=== PATIENT | male | born 1960 | race Caucasian/White ===

== ENCOUNTER 2016-09-14 21:55 | Inpatient (IN) | payer SELFPAY ==
[2016-09-14] MEDS ORDERED: Sodium Chloride 0.9% 1,000 ML PRIMARY IV ONE (22:16)
[2016-09-14] MEDS ORDERED: NORMAL SALINE 10 ML SYRINGE FLUSH IVP PRN (22:16)
--- NOTE | 2016-09-14 22:39 | PDOC ---
General Adult HPI - General Chief Complaint: General Medical Stated Complaint: DON'T CARE, ETOH, FALL Date Seen by Provider: 09/14/16 Time Seen by Provider: 23:00 Source: POSITIVE: Patient, EMS Exam Limitations: POSITIVE: Intoxication Nurse's Notes Reviewed & Considered: Yes EMS Report Reviewed & Considered: Verbal - History of Present Illness Initial Comment: The patient is a 55-year-old male who is brought to the emergency department by ambulance. The patient has a history of alcohol abuse and according to the EMS crew he drinks up to a gallon a day. EMS was apparently a called to evaluate the patient by law enforcement because the patient was significantly intoxicated and complaining that he had fallen and had left-sided rib pain. The patient on arrival states he does have significant left-sided pain which is worse with movement. He also has some left upper abdominal pain. His pain is worse with breathing or with movement. He states that he thinks he fell down 7 or 8 stairs yesterday some time. He states that he has done this in the past. He doesn't specifically remember when he fell. He denies any current headache or neck pain. He states he has not been vomiting recently. He states that he is tired of drinking and tired of being the way that he is. He is not specifically suicidal and states he does not want to . He denies any other specific complaints currently. 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 He states that he previously saw physicians in [place] for this issue however he states he has not had money to see the doctor recently. He states that his foot actually looks better than it has in the past. Have you received a tetanus shot in the past 10 years?: Unknown - Patient Home Medications Home Medications: Home Medications NK [No Home Medications Reported] 09/14/16 - Patient Allergies Allergies/Adverse Reactions: Allergies Allergy/AdvReac Type Severity Reaction Status Date / Time Sulfa (Sulfonamide AdvReac DIFFICULTY Verified 09/14/16 22:22 Antibiotics) SWALLOWING Past Medical History Past Medical History Reviewed: Other (please comment) (Patient reports that he does not take any prescription medications currently. He does smoke regularly and drinks he states the fifth a day. He states that he is an alcoholic and has had previous withdrawal seizures in the past.) ROS - Limitations ROS Limitations: Intoxication Constitution: DENIES: Chills, Fever Cardiovascular: REPORTS: Chest Pain (Left-sided chest wall pain). DENIES: Blood Pressure Problem, Edema Respiratory: REPORTS: Denies Resp Symptoms, Hurts To Breathe. DENIES: Shortness Of Breath Neurological: DENIES: Headache, Numbness, Weakness Gastrointestinal: REPORTS: Abdominal Pain (Some of the pain from his left chest wall does radiating to the left upper abdomen). DENIES: Nausea, Vomitting Musculoskeletal: REPORTS: Denies MS Symptoms Genitourinary: REPORTS: Denies Symptoms Eyes: REPORTS: Denies Symptoms ENT: REPORTS: Denies Symptoms General Adult Exam - General Appearance General Appearance: POSITIVE: Alert, Cooperative, No Acute Distress - HEENT HEENT: POSITIVE: Head Inspection Nml (No visible bruising or trauma), Eyes Inspection Nml, Ears Inspection Nml, Pharynx Inspect. Nml, PERRL, EOMI, Dry Mucous Membranes - Neck Neck: POSITIVE: Normal Inspection, Lymphadenopathy, Other (No C-spine tenderness ) - Respiratory Respiratory: POSITIVE: No Respiratory Distress, Breath Sounds Normal, Other (He does have tenderness over the left lower and lateral chest wall with no obvious crepitus, breath sounds are normal bilaterally) - Cardiovascular Cardiovascular: POSITIVE: Regular Rate & Rhythm, No Murmur, No Gallop Peripheral Pulses: Dorsalis-pedis (R): 2+, Dorsalis-pedis (L): 2+ - Abdomen Abdomen: Soft: (All Quadrants), No Guarding: (All Quadrants), No Rebound: (All Quadrants), No Distention: (All Quadrants) Additional Abdominal Details: He does have some tenderness in the left upper quadrant with no guarding or rebound tenderness - Back Back: POSITIVE: Normal Inspection - Skin Skin: POSITIVE: Normal Color, No Rash - Extremities Extremity: Normal ROM: (All Extremities), Normal Inspection: (All Extremities) - Neurological / Psychological Neurological: POSITIVE: Oriented X3, Motor Normal, Sensation Normal General Adult Progress - Results Reviewed by me Xrays/CTs/US Reviewed by me: Yes Discussed with Radiologist: Yes Radiology Findings: CTA of the chest for PE protocol is negative for PE, he does have multiple left-sided rib fractures which are acute and subacute according to the radiologist, no evidence of pneumothorax, small left pleural effusion, CT scan of the abdomen and pelvis shows no acute abnormalities per radiologist. Lab Results Reviewed: Yes Lab Results:: Laboratory Results 09/14/16 Range/Units 22:30 WBC 8.42 (4.8-10.8) 10^3/uL RBC 4.43 L (4.70-6.10) 10^6/uL Hgb 14.7 (14.0-18.0) g/dL Hct 42.3 (42.0-52.0) % MCV 95.5 H (80-90) FL MCH 33.2 H (27-31) PG MCHC 34.8 (33-37) g/dL RDW Std Deviation 43.2 (39-50) fL RDW Coeff of Durga 12.7 (11.5-14.5) % Plt Count 318 (140-350) 10*3/uL MPV 7.5 (7.4-12.2) FL Immature Gran % (Auto) 0.1 (0-5) % Neut % (Auto) 65.7 (50-80) % Lymph % (Auto) 23.5 (10-50) % Hinds % (Auto) 9.5 (5-15) % Eos % (Auto) 0.2 (0-8) % Baso % (Auto) 1.0 (0-1) % Immature Gran # (Auto) 0.01 10*3/UL Neut # (Auto) 5.53 10*3/UL Lymph # (Auto) 1.98 10*3/uL Hinds # (Auto) 0.80 (0.3-0.8) 10*3/UL Eos # (Auto) 0.02 10*3/UL Baso # (Auto) 0.08 10*3/UL WBC Morphology Comment Normal morphology (NORM) Plt Morphology Comment Normal morphology (NORM) RBC Morph Comment Normal morphology (NORM) PT 10.7 (9.7-11.4) secs INR 1.04 (0.00-5.90) N/A D-Dimer 3.87 H (0.00-0.59) mg/L Sodium 147 H (135-145) meq/L Potassium 3.8 (3.8-5.2) meq/L Chloride 103 (98-112) meq/L Carbon Dioxide 21 L (23-33) meq/L Anion Gap 23 H (5-20) BUN 9 (7-22) mg/dL Creatinine 0.6 L (0.70-1.50) mg/dL Estimated GFR > 60 (>60 ml/min/1.73m(2)) BUN/Creatinine Ratio 15.00 (6-20) Glucose 94 (78-110) mg/dL Calculated Osmolality 302.0 H (267-292) mOsm/kg Lactic Acid 7.6 H (0.70-2.10) MMOL/L Calcium 7.9 L (8.7-10.7) mg/dL Magnesium 2.1 (1.6-2.4) mg/dL Total Bilirubin 0.7 (0.3-1.2) mg/dL AST 106 H (21-57) IU/L ALT 91 H (21-72) IU/L Alkaline Phosphatase 147 H (38-126) IU/L Troponin I < 0.012 (< 0.040) ng/mL C-Reactive Protein 3.0 H (0.0-0.9) mg/dL Total Protein 8.1 H (6.1-8.0) g/dL Albumin 4.3 (3.5-4.8) g/dL Globulin 3.8 (2.50-4.10) g/dL Albumin/Globulin Ratio 1.10 L (1.3-2.0) mg/g Amylase 127 H (30-110) U/L Lipase 346 H (23-300) IU/L TSH 1.18 (0.2700-4.2000) uIU/mL Salicylates < 1.0 (0-20) mg/dl Acetaminophen < 10.0 (0-30) ug/mL Serum Alcohol 439 H (0-10) mg/dL EKG Interpreted/Reviewed By Me:: Yes EKG Interpretation:: POSITIVE: Normal Sinus Rhythm, Normal Rate, Normal Intervals, Normal [place], Normal QRS, Normal ST/T - Patient's Progress MDM / ED Course: An IV had been established per EMS. The patient was clearly intoxicated on arrival. He did become quite anxious and was complaining of significant pain after CT and received Toradol 15 mg IV as well as Ativan 2 mg IV. EKG and laboratory findings were discussed with the patient. The patient does have elevated d-dimer as well as elevated amylase and lipase. His blood alcohol is significantly elevated at 439. He underwent CT of his chest PE protocol which was negative for PE however did show multiple left-sided rib fractures both acute and subacute. CT scan of the abdomen was unremarkable per radiologist. The patient did receive a banana bag. Currently the patient has significant alcohol intoxication with history of chronic alcohol abuse. He has had multiple falls recently and has several left-sided rib fractures. His amylase and lipase are mildly elevated although there is no evidence of pancreatitis on CT. Decision was made to admit the patient for further treatment and evaluation. Dr. Salmon is agreed to admit the patient and the patient has agreed to be admitted. - Consult Counseled: POSITIVE: Patient, RE: Lab Results, RE: Radiology Results, RE: DX, RE : Need for F/U Patient Care Time - Estimated PCT Patient Care Time (In Minutes): 45 Vital Signs - VS Reviewed Vital Signs Reviewed: Yes Discharge Clinical Impression: Alcoholic intoxication, Fracture of multiple ribs, Recurrent falls, Elevated pancreatic enzyme, Chronic osteomyelitis of foot Discharge Disposition: Admit to Inpatient Condition: Stable Date Decision to Admit to Inpatient: 09/15/16 Time Decision to Admit to Inpatient: 01:20
[2016-09-14 22:46] LABS: BASOPHILS # (AUTO) 0.08 10*3/UL; EOSINOPHILS # (AUTO) 0.02 10*3/UL; EOSINOPHILS % (AUTO) 0.2 % (0-8); HEMATOCRIT 42.3 % (42.0-52.0); HEMOGLOBIN 14.7 g/dL (14.0-18.0); LYMPHOCYTES # (AUTO) 1.98 10*3/uL; MEAN CORPUSCULAR HEMOGLOBIN 33.2 PG (27-31); MEAN CORPUSCULAR HGB CONC 34.8 g/dL (33-37); MEAN PLATELET VOLUME 7.5 FL (7.4-12.2); MONOCYTES % (AUTO) 9.5 % (5-15); NEUTROPHILS # (AUTO) 5.53 10*3/UL; NEUTROPHILS % (AUTO) 65.7 % (50-80); RED BLOOD COUNT 4.43 10^6/uL (4.70-6.10)
[2016-09-14 22:47] LABS: PLATELET MORPHOLOGY COMMENT NORMAL MORPHOLOGY (NORM); RBC MORPHOLOGY COMMENT NORMAL MORPHOLOGY (NORM); WBC MORPHOLOGY COMMENT NORMAL MORPHOLOGY (NORM)
[2016-09-14 22:54] LABS: LIPASE 346 IU/L (23-300)
[2016-09-14 23:00] LABS: BLOOD UREA NITROGEN 9 mg/dL (7-22); CALCIUM 7.9 mg/dL (8.7-10.7); EST GLOMERULAR FILTRATION > 60 (>60 ml/min/1.73m(2)); MAGNESIUM 2.1 mg/dL (1.6-2.4); SERUM ALBUMIN 4.3 g/dL (3.5-4.8)
[2016-09-14 23:06] LABS: SALICYLATE < 1.0 mg/dl (0-20)
--- NOTE | 2016-09-14 23:42 | EKG ---
[address] [address] Measurements Intervals [place] Rate: 106 P: 65 W[place]: 155 QRS: 62 QRSD: 90 T: 67 QT: 384 QTc: 446 Interpretive Statements SINUS TACHYCARDIA NONSPECIFIC ST DEPRESSION ABNORMAL RHYTHM ECG No previous ECG available for comparison Electronically Signed On 09-15-16 07:47:56 MDT by Den Lewis [id number]
[2016-09-15] MEDS ORDERED: KETOROLAC 15 MG/1 ML VIAL IVP ONE (00:09)
[2016-09-15] MEDS ORDERED: LORazepam 2 MG/1 ML VIAL IVP ONE (00:09)
[2016-09-15] MEDS ORDERED: Sodium Chloride 0.9% 1,000 ML, Magnesium Sulfate 2gm (Premix) 50 ML with Multivitamin I... IV ONE ×5 (00:38)
--- NOTE | 2016-09-15 00:40 | DI ---
HISTORY: Left-sided chest pain. Elevated D-dimer. TECHNIQUE: Contiguous axial images of the chest, abdomen, and pelvis were performed and submitted fo r interpretation. FINDINGS: No main or segmental pulmonary emboli. There is no dense consolidation. There is a small left pleural effusion. There is no pneumothorax. A irways are patent with no endobronchial lesion. No evidence of great vessel injury, dissection, or aneurysm. Heart size is at the upper limits of no rmal with no pericardial effusion. No mediastinal or hilar lymphadenopathy. The thyroid exhibits normal CT morphology. No evidence of solid organ injury. Normal CT appearance of the liver, gallbladder, pancreas, spleen, kidneys, and adrenal glands. There is diffuse hypoenhancement of the liver relative to the spleen, a finding commonly associated with hepatic steatosis. No focal lesion is present. Ureters and bladde r are unremarkable. Hollow viscus organs demonstrate normal course and caliber. The appendix is within normal limits. Th ere is no intraperitoneal free air or fluid. Vascular structures are intact. No abdominopelvic lymp hadenopathy is present. There is anterior compression deformity of T11. The middle and posterior columns are intact. There ar e multiple left-sided rib fractures as follows: subacute anterior 7th and acute lateral 7th; acute la teral 8th; acute and subacute lateral 9th; comminuted acute posterior 11th. There is multilevel degen erative disc disease with 4 lumbar type vertebral bodies. Prominent posterior endplate osteophytes re sult in osseous neuroforaminal narrowing at the L5/S1 level. There is mild bilateral gynecomastia. IMPRESSION: 1. No main or segmental pulmonary emboli. 2. Small left pleural effusion. 3. No CT evidence of solid organ or hollow viscus injury. 4. Probable hepatic steatosis. 5. Anterior T11 compression deformity; multiple acute and subacute left-sided rib fractures as above. NOTIFICATION: The above findings were phoned to Dr. Polanco in the ER Department on 09/15/2016 at 2: 48am EST.
[2016-09-15] MEDS ORDERED: LIDOCAINE W/ SODIUM BICARB 0.5 ML SYR SUBD PRN (01:24)
[2016-09-15] MEDS ORDERED: ONDANSETRON 4 MG/2 ML VIAL IV PRN (01:24)
[2016-09-15] MEDS: ACETAMINOPHEN 500 MG TABLET PO PRN ×3 (03:20→11:49)
[2016-09-15] MEDS: NICOTINE 7 MG /DAY PATCH TRANSDERM PRN (03:20)
[2016-09-15] MEDS: Diazepam Inj (ETOH withdrawal)10 MG/2 ML CARPUJECT IVP PRN ×3 (03:40→23:52)
[2016-09-15] MEDS: NORMAL SALINE 10 ML SYRINGE FLUSH IVP PRN (03:41)
[2016-09-15] MEDS: MAGNESIUM OXIDE 400 MG TABLET PO SCH ×2 (08:18→20:05)
[2016-09-15] MEDS: Pantoprazole Inj 40 MG in Normal Saline Flush 10 ML IVP SCH (08:18)
[2016-09-15] MEDS: ChlordiazePOXIDE 25mg Cap (ETOH withdrawal) PO SCH ×3 (08:18→20:05)
--- NOTE | 2016-09-15 08:58 | DI ---
CT HEAD SCAN WITHOUT IV CONTRAST, 09/15/2016 7:30 AM : Clinical History: Head injury. The patient fell. Previous Exam: None at this facility. Scans are obtained from the foramen magnum to the vertex without IV contrast. The 4th, 3rd, and lateral ventricles are of normal size, shape, position, and contour for the patient 's age. There are no abnormal areas of increased or decreased density. Specifically, there is no evid ence of an acute intracranial hemorrhagic focus. There is moderate cerebellar and cerebral atrophy wi thout brain stem atrophy. There are no extracerebral mantles or shift of the midline structures. Bone window evaluation is normal. The paranasal sinuses are normal. READIN. There is no evidence of an acute intracranial hemorrhagic focus. 2. Moderate cerebellar and cerebral atrophy without brain stem atrophy.
--- NOTE | 2016-09-15 14:54 | PDOC ---
History and Physical - History of Present Illness Date and Time of Service: 09/15/2016, 1444 Chief Complaint: fall and intoxication History of Present Illness: This is a 55-year-old chronic alcoholic with peripheral neuropathy, and a history of chronic osteomyelitis. He just finished a course of Keflex for about a month and states that he finished that a month ago. He drinks about 1.75 L of vodka per day and states that he thinks he fell down the stairs. He does not recall hitting his head. Because of his fall, he was brought in by ambulance with a blood alcohol level of over 400 and has sobered up through the morning and into the early afternoon. He states to me that it hurts to move on his left side and by CT scan last night he has several rib fractures that are noted, several of them being acute. His head CT scan was negative for any bleed. He states he's had a seizure from alcohol withdrawal in the past. He smokes about half pack per day as well. He is now complaining of fairly severe pain. He was not complaining of pain when he first presented to the emergency room but he was too intoxicated to notice. He states he falls frequently. He states that he wants to quit alcohol and admits that he is a chronic alcoholic. No fevers or chills, no chest pain, no shortness of breath. There were no other exacerbating factors and the patient's history is limited by the fact that he was intoxicated on presentation. Past Medical History Medical History: 1. Chronic alcoholism. 2. Peripheral neuropathy, probably related to alcohol. 3. Tobacco abuse. 4. Chronic ulcers with reports of chronic osteomyelitis. Surgical History: 1. Appendectomy. 2. Transmetatarsal amputation Pertinent Family History: Significant for heart disease and diabetes in his father. He states his mother is fairly healthy at 82 years Tobacco Use: Current Every Day Smoker Substance Use Type: None Alcohol Use: Heavy Medication / Allergies Home Medications: Home Medications Medication Instructions Recorded Confirmed Type NK [No Home Medications Reported] 09/14/16 09/15/16 History Allergies/Adverse Reactions: Allergies Allergy/AdvReac Type Severity Reaction Status Date / Time Sulfa (Sulfonamide AdvReac DIFFICULTY Verified 09/15/16 06:52 Antibiotics) SWALLOWING Review of Systems - Constitutional Constitutional: REPORTS: General Health Poor (Alcoholic) - Integumentary Integumentary: REPORTS: Other (Chronic ulcers related to peripheral neuropathy in feet bilaterally) - Respiratory Respiratory: REPORTS: Negative System Review - Cardiovascular Cardiovascular: REPORTS: Negative System Review - Gastrointestinal Gastrointestinal / Abdominal: REPORTS: Negative System Review - Genitourinary Genitourinary: REPORTS: Negative System Review - Musculoskeletal Musculoskeletal: REPORTS: Other (Pain in his ribs but otherwise no complaints of joint pains or muscle pains.) - Hematlogic / Lymphatic Hematologic / Lymphatic: REPORTS: Negative System Review - Neurological Neurologic: REPORTS: Negative System Review, Seizures (History of alcohol withdrawal seizure.) - Psychiatric Psychiatric: REPORTS: Other (Heavy alcohol use) Exam - Vitals Vital Signs: Vital Signs Temperature 98.6 F Temperature Source Temporal Artery Scan Pulse Rate [Pulse Oximeter] 84 Pulse Rate 82 Respiratory Rate 17 Blood Pressure [Left Arm] 133/80 Blood Pressure 133/80 Pulse Ox 98 Oxygen Flow Rate 2 Oxygen Delivery Method Nasal Cannula Height 6 ft Weight 177 lb 12.8 oz - General General Appearance: POSITIVE: No Acute Distress, Cooperative - Head Head Exam: POSITIVE: Normal Inspection, Normocephalic, Atraumatic - Eye Eye Exam: POSITIVE: No Scleral Icterus - ENT ENT Exam: POSITIVE: Mucous Membranes Dry - Neck Neck Exam: POSITIVE: Normal Inspection, No Tenderness, No Thyromegaly - Respiratory Respiratory Exam: POSITIVE: Clear to Auscultation - Bilaterally, Breathing Non Labored, Chest Wall Tenderness (Left-sided chest wall tenderness and pleuritic pain due to rib fractures.) - Cardiovascular Cardiovascular Exam: POSITIVE: RRR, No Murmur, No Clicks, No Gallops, No Rubs, No JVD - GI/Abdominal GI/Abdominal Exam: POSITIVE: Normal Bowel Sounds, Non Tender, Non Distended, Soft - Rectal Rectal Exam: POSITIVE: Deferred - External Exam: POSITIVE: Deferred Exam: POSITIVE: Deferred - Extremities Extremities Exam: POSITIVE: No Clubbing Present, No Edema Present, No Cyanosis Present, Dosalis Pedis Pulses - Stong & Regular Additional Extremities Exam Details: Transmetatarsal amputation on the right with a plantar ulcer that at this time appears clean and without drainage. There is a plantar ulcer just below the base of the great toe on the left foot that appears clean. Dorsalis pedis pulses were +2 over 4 bilaterally - Neurological Neurological Exam: POSITIVE: Alert, Oriented x 3, No Facial Droop, Speech Intact / Clear, Moves All Extremities Equally - Psychiatric Psychiatric Exam: POSITIVE: Normal Affect, Anxious - Integumentary Integumentary Exam: POSITIVE: Normal Color, Warm, Dry, Intact Results - Labs CBC and BMP: 09/14/16 22:30 09/14/16 22:30 Labs - Last 24 Hours: Laboratory Results 09/14/16 Range/Units 22:30 WBC 8.42 (4.8-10.8) 10^3/uL RBC 4.43 L (4.70-6.10) 10^6/uL Hgb 14.7 (14.0-18.0) g/dL Hct 42.3 (42.0-52.0) % MCV 95.5 H (80-90) FL MCH 33.2 H (27-31) PG MCHC 34.8 (33-37) g/dL RDW Std Deviation 43.2 (39-50) fL RDW Coeff of Durga 12.7 (11.5-14.5) % Plt Count 318 (140-350) 10*3/uL MPV 7.5 (7.4-12.2) FL Immature Gran % (Auto) 0.1 (0-5) % Neut % (Auto) 65.7 (50-80) % Lymph % (Auto) 23.5 (10-50) % [place] % (Auto) 9.5 (5-15) % Eos % (Auto) 0.2 (0-8) % Baso % (Auto) 1.0 (0-1) % Immature Gran # (Auto) 0.01 10*3/UL Neut # (Auto) 5.53 10*3/UL Lymph # (Auto) 1.98 10*3/uL [place] # (Auto) 0.80 (0.3-0.8) 10*3/UL Eos # (Auto) 0.02 10*3/UL Baso # (Auto) 0.08 10*3/UL WBC Morphology Comment Normal morphology (NORM) Plt Morphology Comment Normal morphology (NORM) RBC Morph Comment Normal morphology (NORM) PT 10.7 (9.7-11.4) secs INR 1.04 (0.00-5.90) N/A D-Dimer 3.87 H (0.00-0.59) mg/L Sodium 147 H (135-145) meq/L Potassium 3.8 (3.8-5.2) meq/L Chloride 103 (98-112) meq/L Carbon Dioxide 21 L (23-33) meq/L Anion Gap 23 H (5-20) BUN 9 (7-22) mg/dL Creatinine 0.6 L (0.70-1.50) mg/dL Estimated GFR > 60 (>60 ml/min/1.73m(2)) BUN/Creatinine Ratio 15.00 (6-20) Glucose 94 (78-110) mg/dL Calculated Osmolality 302.0 H (267-292) mOsm/kg Lactic Acid 7.6 H (0.70-2.10) MMOL/L Calcium 7.9 L (8.7-10.7) mg/dL Magnesium 2.1 (1.6-2.4) mg/dL Total Bilirubin 0.7 (0.3-1.2) mg/dL AST 106 H (21-57) IU/L ALT 91 H (21-72) IU/L Alkaline Phosphatase 147 H (38-126) IU/L Troponin I < 0.012 (< 0.040) ng/mL C-Reactive Protein 3.0 H (0.0-0.9) mg/dL Total Protein 8.1 H (6.1-8.0) g/dL Albumin 4.3 (3.5-4.8) g/dL Globulin 3.8 (2.50-4.10) g/dL Albumin/Globulin Ratio 1.10 L (1.3-2.0) mg/g Amylase 127 H (30-110) U/L Lipase 346 H (23-300) IU/L TSH 1.18 (0.2700-4.2000) uIU/mL Salicylates < 1.0 (0-20) mg/dl Acetaminophen < 10.0 (0-30) ug/mL Serum Alcohol 439 H (0-10) mg/dL - Imaging Status: Image Reviewed by Me (CT scan of the head appears negative for acute bleed. I reviewed the CT of the chest. The radiologist felt that there were several rib fractures acute and chronic on the left side as well as compression deformity.) Assessment and Plan - Patient Problems (1) Alcohol intoxication Current Visit: Yes Status: Acute Qualifiers: Complication of substance-induced condition: with unspecified complication Qualified Description: Alcoholic intoxication, with unspecified complication Qualifier Code(s): (F10.129) Alcohol abuse with intoxication , unspecified (2) Multiple falls Current Visit: Yes Status: Acute (3) Multiple rib fractures Current Visit: Yes Status: Acute Qualifiers: Encounter type: initial encounter Fracture type: closed Laterality : left Qualified Description: Closed fracture of multiple ribs of left side , initial encounter Qualifier Code(s): (S22.42XA) Multiple fractures of ribs, left side, initial encounter for closed fracture (4) Neuropathy Current Visit: Yes Status: Acute (5) Status post transmetatarsal amputation of right foot Current Visit: Yes Status: Acute (6) Chronic alcoholism Current Visit: Yes Status: Acute - Assessment / Plan Additional Assessment/Plan Details: Admit patient. Probably this patient will go into alcohol withdrawal so I will go ahead and institute the CIWA protocol. Pain medications when he is more sober. Incentive spirometry. He states that he is not interested in drinking again so I may see if we can get him into some solutions for life. nicotine patch PRN The patient has significant potential of developing complications from alcohol withdrawal, given his high alcohol intake, so I think we should monitor with tele for any signs of DT's, add seizure precautions, and replace thiamine and check vitamin levels. try to get old records from [facility] regarding chronic osteomyelitis if withdrawal gets worse, consider precedex or other measures. High risk for pneumonia or respiratory problems
[2016-09-15] MEDS: HYDROmorphone 2 MG/1 ML IVP PRN ×3 (15:09→23:53)
[2016-09-15] MEDS: HYDROcodone-APAP 7.5 MG-325 MG TABLET PO PRN ×3 (15:09→23:41)
[2016-09-15 19:21] LABS: VITAMIN D 25-HYDROXY < 12.8 NG/ML (30-100)
[2016-09-16] MEDS: NORMAL SALINE 10 ML SYRINGE FLUSH IVP PRN ×4 (03:56→21:47)
[2016-09-16] MEDS: Diazepam Inj (ETOH withdrawal)10 MG/2 ML CARPUJECT IVP PRN ×4 (03:56→19:42)
[2016-09-16 06:22] LABS: BASOPHILS # (AUTO) 0.03 10*3/UL; BASOPHILS % (AUTO) 0.6 % (0-1); EOSINOPHILS # (AUTO) 0.08 10*3/UL; EOSINOPHILS % (AUTO) 1.5 % (0-8); HEMATOCRIT 37.1 % (42.0-52.0); HEMOGLOBIN 12.7 g/dL (14.0-18.0); LYMPHOCYTES # (AUTO) 1.35 10*3/uL; MEAN CORPUSCULAR HGB CONC 34.2 g/dL (33-37); MEAN PLATELET VOLUME 8.2 FL (7.4-12.2); MONOCYTES # (AUTO) 0.36 10*3/UL (0.3-0.8); MONOCYTES % (AUTO) 6.9 % (5-15); RED BLOOD COUNT 3.85 10^6/uL (4.70-6.10)
[2016-09-16 06:26] LABS: PLATELET MORPHOLOGY COMMENT NORMAL MORPHOLOGY (NORM); RBC MORPHOLOGY COMMENT NORMAL MORPHOLOGY (NORM); WBC MORPHOLOGY COMMENT NORMAL MORPHOLOGY (NORM)
[2016-09-16 06:33] LABS: BLOOD UREA NITROGEN 3 mg/dL (7-22); CALCIUM 7.6 mg/dL (8.7-10.7); EST GLOMERULAR FILTRATION > 60 (>60 ml/min/1.73m(2)); SERUM ALBUMIN 3.3 g/dL (3.5-4.8)
[2016-09-16] MEDS: HYDROcodone-APAP 7.5 MG-325 MG TABLET PO PRN ×3 (07:30→19:42)
[2016-09-16] MEDS: Pantoprazole Inj 40 MG in Normal Saline Flush 10 ML IVP SCH (08:08)
[2016-09-16] MEDS: ChlordiazePOXIDE 25mg Cap (ETOH withdrawal) PO SCH ×3 (08:09→21:41)
[2016-09-16] MEDS: HYDROmorphone 2 MG/1 ML IVP PRN (08:09)
[2016-09-16] MEDS: MAGNESIUM OXIDE 400 MG TABLET PO SCH ×2 (08:09→21:42)
[2016-09-16] MEDS: NICOTINE 7 MG /DAY PATCH TRANSDERM PRN (08:11)
[2016-09-16] MEDS ORDERED: ERGOCALCIFEROL 50,000 IU CAPSULE PO SCH (11:30)
[2016-09-16] MEDS ORDERED: CYCLOBENZAPRINE 10 MG TABLET PO PRN (13:16)
[2016-09-16] MEDS ORDERED: KETOROLAC 15 MG/1 ML VIAL IVP PRN (13:16)
[2016-09-16] MEDS ORDERED: POTASSIUM CHLORIDE 20 MEQ TAB PO ONE (13:17)
--- NOTE | 2016-09-16 13:29 | PDOC(PROG) ---
Date and Time of Service: 09/16/2016, 1320 Interval History: Today, the patient states that his pain is better but still present. Still very exacerbated by movement. Withdrawal has been minimal at this point in terms of symptoms, thankfully. Per RN, the patient has gotten a dose of Valium with CIWA scores at around 8 or so. The patient denies any nausea, vomiting, chest pain, or abdominal discomfort. He feels a little anxious. Objective : Data - Labs CBC and BMP: 09/16/16 05:51 09/16/16 05:51 Labs - Last 24 Hours: Laboratory Results 09/15/16 09/15/16 09/16/16 Range/Units 01:30 15:07 05:51 WBC 5.23 (4.8-10.8) 10^3/uL RBC 3.85 L (4.70-6.10) 10^6/uL Hgb 12.7 L (14.0-18.0) g/dL Hct 37.1 L (42.0-52.0) % MCV 96.4 H (80-90) FL MCH 33.0 H (27-31) PG MCHC 34.2 (33-37) g/dL RDW Std Deviation 42.3 (39-50) fL RDW Coeff of Durga 12.3 (11.5-14.5) % Plt Count 209 (140-350) 10*3/uL MPV 8.2 (7.4-12.2) FL Immature Gran % (Auto) 0.2 (0-5) % Neut % (Auto) 65.0 (50-80) % Lymph % (Auto) 25.8 (10-50) % [place] % (Auto) 6.9 (5-15) % Eos % (Auto) 1.5 (0-8) % Baso % (Auto) 0.6 (0-1) % Immature Gran # (Auto) 0.01 10*3/UL Neut # (Auto) 3.40 10*3/UL Lymph # (Auto) 1.35 10*3/uL [place] # (Auto) 0.36 (0.3-0.8) 10*3/UL Eos # (Auto) 0.08 10*3/UL Baso # (Auto) 0.03 10*3/UL WBC Morphology Comment Normal morphology (NORM) Plt Morphology Comment Normal morphology (NORM) RBC Morph Comment Normal morphology (NORM) Sodium 135 (135-145) meq/L Potassium 3.7 L (3.8-5.2) meq/L Chloride 104 (98-112) meq/L Carbon Dioxide 22 L (23-33) meq/L Anion Gap 9 (5-20) BUN 3 L (7-22) mg/dL Creatinine 0.4 L (0.70-1.50) mg/dL Estimated GFR > 60 (>60 ml/min/1.73m(2)) BUN/Creatinine Ratio 7.50 (6-20) Glucose 75 L (78-110) mg/dL Calculated Osmolality 275.0 (267-292) mOsm/kg Calcium 7.6 L (8.7-10.7) mg/dL Magnesium 2.0 (1.6-2.4) mg/dL Total Bilirubin 1.2 (0.3-1.2) mg/dL AST 65 H (21-57) IU/L ALT 66 (21-72) IU/L Alkaline Phosphatase 114 (38-126) IU/L Total Protein 6.4 (6.1-8.0) g/dL Albumin 3.3 L (3.5-4.8) g/dL Globulin 3.1 (2.50-4.10) g/dL Albumin/Globulin Ratio 1.00 L (1.3-2.0) mg/g Vitamin B12 613 (239-931) pg/mL Vitamin D 25-Hydroxy < 12.8 L (30-100) NG/ML Serum Folate 18.8 (2.76-20.0) NG/ML Serum Alcohol 19 H (0-10) mg/dL Objective : Exam - General General Appearance: No Acute Distress, Cooperative Additional General Exam Details: Vital Signs - Last Taken Temperature 97.6 F 09/16/16 13:07 Pulse Rate 100 09/16/16 13:07 Respiratory Rate 20 09/16/16 13:07 Blood Pressure 150/92 09/16/16 13:07 Pulse Ox 93 09/16/16 05:09 - Eye Eye Exam: No Scleral Icterus - Respiratory Respiratory Exam: Clear to Auscultation - Bilaterally, Breathing Non Labored - Cardiovascular Cardiovascular Exam: RRR, No Murmur, No Clicks, No Gallops, No Rubs, No JVD - GI/Abdominal GI/Abdominal Exam: Normal Bowel Sounds, Non Tender, Non Distended, Soft - Extremities Extremities Exam: No Clubbing Present, No Edema Present, No Cyanosis Present Additional Extremities Exam Details: The chronic plantar ulcer in the right foot has a strong odor to it, minimal drainage, no erythema. The left foot has a chronic plantar ulcer that appears well-healed. - Neurological Neurological Exam: Alert, Oriented x 3, No Facial Droop, Speech Intact / Clear, Moves All Extremities Equally Assessment and Plan - Patient Problems (1) Alcohol intoxication Current Visit: Yes Status: Acute Qualifiers: Complication of substance-induced condition: with unspecified complication Qualified Description: Alcoholic intoxication, with unspecified complication Qualifier Code(s): (F10.129) Alcohol abuse with intoxication , unspecified (2) Multiple falls Current Visit: Yes Status: Acute (3) Multiple rib fractures Current Visit: Yes Status: Acute Qualifiers: Encounter type: initial encounter Fracture type: closed Laterality : left Qualified Description: Closed fracture of multiple ribs of left side , initial encounter Qualifier Code(s): (S22.42XA) Multiple fractures of ribs, left side, initial encounter for closed fracture (4) Neuropathy Current Visit: Yes Status: Acute (5) Status post transmetatarsal amputation of right foot Current Visit: Yes Status: Acute (6) Chronic alcoholism Current Visit: Yes Status: Acute - Assessment / Plan Additional Assessment/Plan Details: However I read his most recent infectious disease note, from 06/2016, and the patient has chronic osteomyelitis in the metatarsal heads on the right foot and distracted changes near the great toe on the left foot. He has been noncompliant with IV therapy, and stopped taking his Keflex and month ago, and is really not a great candidate for conservative therapy with antibiotics in the long run. He's been hesitant to visit with orthopedics, so for here I will have him do local wound care to keep these ulcers is clean as possible, and eventually the patient should proceed with amputation based on chronic osteomyelitis as it is very likely that he will get worse with chronic osteomyelitis. I think the blood culture is a contaminant as only 1 out of 4 bottles has remained positive. I will hold off on any further antibiotics. Continue CIWA protocol. PT and OT for mobilization with rib fractures. Add anti-inflammatory and muscle relaxant. Replace potassium.
[2016-09-17] MEDS: NORMAL SALINE 10 ML SYRINGE FLUSH IVP PRN ×2 (02:25→04:44)
[2016-09-17] MEDS: Diazepam Inj (ETOH withdrawal)10 MG/2 ML CARPUJECT IVP PRN ×3 (02:25→15:37)
[2016-09-17] MEDS: HYDROcodone-APAP 7.5 MG-325 MG TABLET PO PRN ×3 (02:26→20:14)
[2016-09-17] MEDS: Pantoprazole Inj 40 MG in Normal Saline Flush 10 ML IVP SCH (10:24)
[2016-09-17] MEDS: ChlordiazePOXIDE 25mg Cap (ETOH withdrawal) PO SCH ×3 (10:25→21:14)
[2016-09-17] MEDS: MAGNESIUM OXIDE 400 MG TABLET PO SCH ×2 (10:25→21:14)
[2016-09-17] MEDS: FOLIC ACID 1 MG TABLET PO SCH (10:29)
--- NOTE | 2016-09-17 14:11 | DI ---
CT ANGIOGRAM OF THE CHEST, 09/17/2016 12:00 PM : Clinical History: Unexplained tachycardia. Recent left chest wall injury. Previous Exam: 2017. Scans are performed from the base of the neck to the lower lung bases following IV administration of 65 mL of Isovue 300. Proprietary automated bolus tracking software was used to verify the timing of t he injection. The base of the neck and thoracic inlet are normal. There are no abnormal axillary, supraclavicular, mediastinal, or hilar nodes. There are calcifications in the proximal and middle thirds of the LAD in the proximal portions of the right coronary artery and the left circumflex artery. Since the previou s exam, the patient has developed a small pericardial effusion. No definite pulmonary emboli are iden tified. There are artifacts in the left lower lobe related to cardiac motion. There is no pulmonary a rterial hypertension. The left pleural effusion has increased in size and there is left lower lobe at electasis without evidence of a pulmonary contusion or pneumothorax. There is diffuse fatty infiltrat ion of the liver. Both adrenal glands and the limited views of the pancreas and spleen are normal. Th ere are multiple left-sided rib fractures. READIN. No pulmonary emboli are identified. There are some artifacts secondary to cardiac motion in the l eft lower lobe. There is no pulmonary arterial hypertension. 2. Increase in the left pleural effusion since the previous study. There is left lower lobe atelecta sis without evidence of a pulmonary contusion. 3. Interval development of a small pericardial effusion. Multiple left-sided rib fractures are noted .
--- NOTE | 2016-09-17 16:16 | PT.PROG ---
Progress Note Progress Note: S. Patient stated that he would like to go outside this afternoon. O. Patient ambulated 200 feet to the bench outside, then performed seated clamshells (yellow) x10, hip abduction (yellow) x10, and marches (2 minutes) Patient ambulated 200 feet back to his room where he was left with OT for further therapy. A. Patient tolerated therapy well, he required min assist with ambulation due to balance deficits. Patient would continue to benefit from skilled therapy to increase balance and endurance. P. Continue POC.
--- NOTE | 2016-09-17 16:34 | PDOC(PROG) ---
Date and Time of Service: 09/17/2016, 1615 Interval History: Does not complain of nausea or vomiting. Chest pain is much better than on the first day of admission but still present. Reportedly he is quite antalgic in terms of his gait with therapy. Swing bed evaluation is placed. He may need longer time for therapy. Objective : Data - Labs CBC and BMP: 09/16/16 05:51 09/16/16 05:51 Labs - Last 24 Hours: Laboratory Results 09/14/16 09/15/16 09/15/16 Range/Units 22:30 01:30 15:07 WBC 8.42 (4.8-10.8) 10^3/uL RBC 4.43 L (4.70-6.10) 10^6/uL Hgb 14.7 (14.0-18.0) g/dL Hct 42.3 (42.0-52.0) % MCV 95.5 H (80-90) FL MCH 33.2 H (27-31) PG MCHC 34.8 (33-37) g/dL RDW Std Deviation 43.2 (39-50) fL RDW Coeff of Durga 12.7 (11.5-14.5) % Plt Count 318 (140-350) 10*3/uL MPV 7.5 (7.4-12.2) FL Immature Gran % (Auto) 0.1 (0-5) % Neut % (Auto) 65.7 (50-80) % Lymph % (Auto) 23.5 (10-50) % [place] % (Auto) 9.5 (5-15) % Eos % (Auto) 0.2 (0-8) % Baso % (Auto) 1.0 (0-1) % Immature Gran # (Auto) 0.01 10*3/UL Neut # (Auto) 5.53 10*3/UL Lymph # (Auto) 1.98 10*3/uL [place] # (Auto) 0.80 (0.3-0.8) 10*3/UL Eos # (Auto) 0.02 10*3/UL Baso # (Auto) 0.08 10*3/UL WBC Morphology Comment Normal morphology (NORM) Plt Morphology Comment Normal morphology (NORM) RBC Morph Comment Normal morphology (NORM) PT 10.7 (9.7-11.4) secs INR 1.04 (0.00-5.90) N/A D-Dimer 3.87 H (0.00-0.59) mg/L Sodium 147 H (135-145) meq/L Potassium 3.8 (3.8-5.2) meq/L Chloride 103 (98-112) meq/L Carbon Dioxide 21 L (23-33) meq/L Anion Gap 23 H (5-20) BUN 9 (7-22) mg/dL Creatinine 0.6 L (0.70-1.50) mg/dL Estimated GFR > 60 (>60 ml/min/1.73m(2)) BUN/Creatinine Ratio 15.00 (6-20) Glucose 94 (78-110) mg/dL Calculated Osmolality 302.0 H (267-292) mOsm/kg Lactic Acid 7.6 H (0.70-2.10) MMOL/L Calcium 7.9 L (8.7-10.7) mg/dL Magnesium 2.1 (1.6-2.4) mg/dL Total Bilirubin 0.7 (0.3-1.2) mg/dL AST 106 H (21-57) IU/L ALT 91 H (21-72) IU/L Alkaline Phosphatase 147 H (38-126) IU/L Troponin I < 0.012 (< 0.040) ng/mL C-Reactive Protein 3.0 H (0.0-0.9) mg/dL Total Protein 8.1 H (6.1-8.0) g/dL Albumin 4.3 (3.5-4.8) g/dL Globulin 3.8 (2.50-4.10) g/dL Albumin/Globulin Ratio 1.10 L (1.3-2.0) mg/g Amylase 127 H (30-110) U/L Lipase 346 H (23-300) IU/L Vitamin B12 613 (239-931) pg/mL Vitamin D 25-Hydroxy < 12.8 L (30-100) NG/ML Serum Folate 18.8 (2.76-20.0) NG/ML TSH 1.18 (0.2700-4.2000) uIU/mL Salicylates < 1.0 (0-20) mg/dl Acetaminophen < 10.0 (0-30) ug/mL Serum Alcohol 439 H 19 H (0-10) mg/dL 09/16/16 Range/Units 05:51 WBC 5.23 (4.8-10.8) 10^3/uL RBC 3.85 L (4.70-6.10) 10^6/uL Hgb 12.7 L (14.0-18.0) g/dL Hct 37.1 L (42.0-52.0) % MCV 96.4 H (80-90) FL MCH 33.0 H (27-31) PG MCHC 34.2 (33-37) g/dL RDW Std Deviation 42.3 (39-50) fL RDW Coeff of Durga 12.3 (11.5-14.5) % Plt Count 209 (140-350) 10*3/uL MPV 8.2 (7.4-12.2) FL Immature Gran % (Auto) 0.2 (0-5) % Neut % (Auto) 65.0 (50-80) % Lymph % (Auto) 25.8 (10-50) % [place] % (Auto) 6.9 (5-15) % Eos % (Auto) 1.5 (0-8) % Baso % (Auto) 0.6 (0-1) % Immature Gran # (Auto) 0.01 10*3/UL Neut # (Auto) 3.40 10*3/UL Lymph # (Auto) 1.35 10*3/uL [place] # (Auto) 0.36 (0.3-0.8) 10*3/UL Eos # (Auto) 0.08 10*3/UL Baso # (Auto) 0.03 10*3/UL WBC Morphology Comment Normal morphology (NORM) Plt Morphology Comment Normal morphology (NORM) RBC Morph Comment Normal morphology (NORM) PT (9.7-11.4) secs INR (0.00-5.90) N/A D-Dimer (0.00-0.59) mg/L Sodium 135 (135-145) meq/L Potassium 3.7 L (3.8-5.2) meq/L Chloride 104 (98-112) meq/L Carbon Dioxide 22 L (23-33) meq/L Anion Gap 9 (5-20) BUN 3 L (7-22) mg/dL Creatinine 0.4 L (0.70-1.50) mg/dL Estimated GFR > 60 (>60 ml/min/1.73m(2)) BUN/Creatinine Ratio 7.50 (6-20) Glucose 75 L (78-110) mg/dL Calculated Osmolality 275.0 (267-292) mOsm/kg Lactic Acid (0.70-2.10) MMOL/L Calcium 7.6 L (8.7-10.7) mg/dL Magnesium 2.0 (1.6-2.4) mg/dL Total Bilirubin 1.2 (0.3-1.2) mg/dL AST 65 H (21-57) IU/L ALT 66 (21-72) IU/L Alkaline Phosphatase 114 (38-126) IU/L Troponin I (< 0.040) ng/mL C-Reactive Protein (0.0-0.9) mg/dL Total Protein 6.4 (6.1-8.0) g/dL Albumin 3.3 L (3.5-4.8) g/dL Globulin 3.1 (2.50-4.10) g/dL Albumin/Globulin Ratio 1.00 L (1.3-2.0) mg/g Amylase (30-110) U/L Lipase (23-300) IU/L Vitamin B12 (239-931) pg/mL Vitamin D 25-Hydroxy (30-100) NG/ML Serum Folate (2.76-20.0) NG/ML TSH (0.2700-4.2000) uIU/mL Salicylates (0-20) mg/dl Acetaminophen (0-30) ug/mL Serum Alcohol (0-10) mg/dL - Imaging CT Scan Status: Image Reviewed by Me (CT of the chest, no evidence of pneumonia. There is an effusion. There is fractured ribs. Radiology did not feel there was any evidence of a blood clot.) Objective : Exam - General General Appearance: No Acute Distress, Cooperative Additional General Exam Details: Vital Signs - Last Taken Temperature 99.8 F H 09/17/16 15:32 Pulse Rate 129 H 09/17/16 15:32 Respiratory Rate 18 09/17/16 15:32 Blood Pressure 122/81 09/17/16 15:32 Pulse Ox 94 09/17/16 11:18 - Eye Eye Exam: No Scleral Icterus - Respiratory Respiratory Exam: Breathing Non Labored, Decreased Breath Sounds (In the bases, particularly the left) - Cardiovascular Cardiovascular Exam: No Murmur, No Clicks, No Gallops, No Rubs, Tachycardia, No JVD - GI/Abdominal GI/Abdominal Exam: Normal Bowel Sounds, Non Tender, Non Distended, Soft - Extremities Extremities Exam: No Clubbing Present, No Edema Present, No Cyanosis Present - Neurological Neurological Exam: Alert, Oriented x 3, No Facial Droop, Speech Intact / Clear, Moves All Extremities Equally Assessment and Plan - Patient Problems (1) Multiple rib fractures Current Visit: Yes Status: Acute Qualifiers: Encounter type: initial encounter Fracture type: closed Laterality : left Qualified Description: Closed fracture of multiple ribs of left side , initial encounter Qualifier Code(s): (S22.42XA) Multiple fractures of ribs, left side, initial encounter for closed fracture (2) Alcohol withdrawal Current Visit: Yes Status: Acute Qualifiers: Complication of substance-induced condition: with unspecified complication Qualified Description: Alcohol withdrawal syndrome, with unspecified complication Qualifier Code(s): (F10.239) Alcohol dependence with withdrawal, unspecified (3) Alcohol intoxication Current Visit: Yes Status: Acute Qualifiers: Complication of substance-induced condition: with unspecified complication Qualified Description: Alcoholic intoxication, with unspecified complication Qualifier Code(s): (F10.129) Alcohol abuse with intoxication , unspecified (4) Multiple falls Current Visit: Yes Status: Acute (5) Neuropathy Current Visit: Yes Status: Acute (6) Status post transmetatarsal amputation of right foot Current Visit: Yes Status: Acute (7) Chronic alcoholism Current Visit: Yes Status: Acute (8) Tachycardia Current Visit: Yes Status: Acute - Assessment / Plan Additional Assessment/Plan Details: Overall, I think the tachycardia is probably related to withdrawal, but no other evidence of delirium tremens. I think we can start to titrate the Librium to some degree. Thankfully, no pulmonary emboli. He has an effusion, but I think any acute bleeding has stopped at this point. May be worthwhile to start DVT prophylaxis. Continue PT and OT. Pain control. Likely may need some time on the swing bed prior to discharge home due to his complex and poor health from his alcoholism and severe peripheral neuropathy and chronic osteomyelitis problems. The blood culture was a contaminant, 1 out of 4 bottles with staph epidermidis.
[2016-09-18] MEDS: HYDROcodone-APAP 7.5 MG-325 MG TABLET PO PRN ×2 (01:15→13:27)
[2016-09-18] MEDS ORDERED: IPRATROPIUM/ALBUTEROL SULFATE 3 ML NEB NEB ONE ×2 (04:57→05:20)
[2016-09-18] MEDS ORDERED: PANTOPRAZOLE 40 MG TABLET PO SCH (07:00)
[2016-09-18] MEDS ORDERED: Multivitamin Tab 1 TAB PO SCH (09:00)
[2016-09-18] MEDS: FOLIC ACID 1 MG TABLET PO SCH (09:04)
[2016-09-18] MEDS: MAGNESIUM OXIDE 400 MG TABLET PO SCH (09:04)
[2016-09-18] MEDS: ChlordiazePOXIDE 25mg Cap (ETOH withdrawal) PO SCH (09:05)
--- NOTE | 2016-09-18 12:10 | PT.PROG ---
Progress Note Progress Note: S: Pt agreed to participate in therapy this AM. Pt was brought down to therapy room by OT. O: Instructed in nustep x 10 minutes for general cardiovascular. Pt instructed in 10 x sit to stand transfers - requires max VC due to impulsiveness and poor initial standing balance without DIRECTOR OF ASSESSING x 2 on walker. Ther ex for bilateral l/e strengthening exercises in seated position with 3# weights for alternating LAQ's , alternating marching, resisted HS, and resisted hip abduction. Instructed on ambulating over small hurdles and up/over a 4 inch box - required DIRECTOR OF ASSESSING x 2 and max cuing - pt very unsteady and poor judging ability of foot placement as he stepped on hurdles and unable to correct. Impulsive behaviors during therapy as he tries to get up and go on his own and crisostomo through balance activities. Pt does have a diabetic ulcer on the bottom of his right foot which has the partial amputation. Wound has a callused ring and measures 2.0 x 2.2 cm with a 1.1 cm depth; moderate serosanguinous drainage. Wound cleansed and dressed with prism (AG) and covered with duoderm. Pt left with OT. A: Pt demo impulsive behaviors and poor balance. Pt is a high fall risk and not safe to return home. Pt's wound needs additional monitoring as he has been doing independent dressing changes over the last month because he has been unable to get back to [place] [facility]. P: continue per POC. Pt unsafe to return home and other options need to be addressed such as d/c to [facility].
[2016-09-18 13:24] VITALS: RESP 14; TEMP 97.6
--- NOTE | 2016-09-18 14:05 | DCSUMMARY ---
Hospitalization Summary Admit Date: 09/15/16 Discharge Date: 09/18/16 Primary Diagnosis:: fall with rib fractures Secondary Diagnosis:: Chronic alcoholism Hospital Course: This a 55-year-old male that came in after falling down the stairs. He had several left-sided rib fractures, and was found to have an alcohol level of over 400. He was admitted for his intoxication, rib pain, and has progressed fairly slowly in terms of therapy. He still has an antalgic gait is not safe to do stairs yet. He is no longer intoxicated, and his alcohol withdrawal was surprisingly well controlled. It is possible he could have a delayed reaction, but at this point, he has been on Librium and we have him on twice a day dosing. He has chronic osteomyelitis and peripheral neuropathy and that may be affecting some of his gait as well. We found that he had a low vitamin D level and we are replacing that. Overall, the patient is at a point where we can transition him into a skilled setting and feel that a swing bed here would make the most sense for him. As he progresses and is able to do stairs, we can consider discharging home. Today, no complaints of chest pain, no shortness of breath. His rib pain is significantly better than it was on admission. Still present however. Assessment and Plan: 1. As per discharge assessments noted 2. Disposition: Patient is discharged to swing bed status 3. Condition on discharge, stable and improved. 4. Diet: regular diet 5. Activities: Continue PT and OT 6. Follow-Up: 1. Primary care provider a week post discharge. In the meantime the hospital service will continue to follow the patient on the swing bed. 2. 7. Medications at the Time of Discharge: Active Medications Generic Name Dose Route Start Last Admin Trade Name Freq PRN Reason Stop Dose Admin Acetaminophen 500 mg 09/15/16 01:24 09/15/16 11:49 Tylenol PO 500 mg Q4H PRN Administration Pain or Fever Acetaminophen/Hydrocodone Bitart 1 - 2 tab 09/15/16 14:56 09/18/16 13:27 [place] 7.5/325 Tab PO 2 tab Q4H PRN Administration Pain Chlordiazepoxide HCl 25 mg 09/17/16 21:00 09/18/16 09:05 Librium (Etoh Withdrawal) PO 25 mg BID NITIN Administration Cyclobenzaprine HCl 10 mg 09/16/16 13:16 09/16/16 21:46 Flexeril PO 10 mg TID PRN Administration Muscle Spasms Diazepam 5 - 20 mg 09/15/16 01:24 09/17/16 15:37 Valium Inj (Etoh Withdrawal) IVP 5 mg .PER CIWA-AR PRN Administration CIWA-Ar score >8 Ergocalciferol 50,000 iu 09/16/16 11:30 09/16/16 11:48 Vitamin D PO 50,000 iu Q7D NITIN Administration Folic Acid 1 mg 09/17/16 09:00 09/18/16 09:04 Folic Acid PO 1 mg DAILY NITIN Administration Sodium Chloride 25 mls @ 200 mls/hr 09/15/16 01:24 09/15/16 20:05 Normal Saline 0.9% IV 200 mls/hr .Post Infusion PRN Administration No Primary IV for Flush ONLY Ketorolac Tromethamine 15 mg 09/16/16 13:16 09/16/16 21:46 Toradol Inj IVP 15 mg Q6H PRN Administration pain Lidocaine HCl 0.5 ml 09/15/16 01:24 Lidocaine Buffered Inj SUBD ONCE PRN IV Starts Magnesium Oxide 400 mg 09/15/16 09:00 09/18/16 09:04 Mag-Ox PO 09/19/16 08:59 400 mg BID NITIN Administration Multivitamins Therapeutic 1 tab 09/18/16 09:00 09/18/16 09:04 Thera Tab PO 1 tab DAILY NITIN Administration Nicotine 1 patch 09/15/16 01:24 09/16/16 08:11 Nicoderm Cq 7mg Patch TRANSDERM 1 patch DAILY PRN Administration smoking cessation Ondansetron HCl 4 mg 09/15/16 01:24 Zofran Inj IV Q6H PRN NAUSEA / VOMITING Pantoprazole Sodium 40 mg 09/18/16 07:00 09/18/16 07:24 Protonix PO 40 mg AC BK NITIN Administration Sodium Chloride 5 - 20 ml 09/15/16 01:24 09/17/16 04:44 Saline Flush IVP 10 ml BID PRN Administration Flush Thiamine HCl 100 mg 09/20/16 01:17 Vitamin B-1 PO DAILY NITIN 8. Time, care, counseling and coordination of care for this discharge is less than 30 minutes. Exam - Vitals Vital Signs: Vital Signs Temperature 97.6 F Temperature Source Temporal Artery Scan Pulse Rate [Apical] 103 Pulse Rate [Pulse Oximeter] 112 Pulse Rate 107 Respiratory Rate 14 Blood Pressure [Left Arm] 101/79 Blood Pressure 118/81 Pulse Ox 95 Oxygen Flow Rate 1 Oxygen Delivery Method Room Air Height 6 ft Weight 178 lb 4.8 oz - General General Appearance: POSITIVE: No Acute Distress, Cooperative - Eye Eye Exam: POSITIVE: No Scleral Icterus - Respiratory Respiratory Exam: POSITIVE: Clear to Auscultation - Bilaterally, Breathing Non Labored - Cardiovascular Cardiovascular Exam: POSITIVE: RRR, No Murmur, No Clicks, No Gallops, No Rubs, No JVD - GI/Abdominal GI/Abdominal Exam: POSITIVE: Normal Bowel Sounds, Non Tender, Non Distended, Soft - Extremities Extremities Exam: POSITIVE: No Clubbing Present, No Edema Present, No Cyanosis Present Additional Extremities Exam Details: Ulcers dressed with socks. - Neurological Neurological Exam: POSITIVE: Alert, Oriented x 3, No Facial Droop, Speech Intact / Clear, Moves All Extremities Equally Additional Neurological Exam Details: Slow get up and go test. Data Perinent Studies: Laboratory Results 09/14/16 09/15/16 09/15/16 Range/Units 22:30 01:30 15:07 WBC 8.42 (4.8-10.8) 10^3/uL RBC 4.43 L (4.70-6.10) 10^6/uL Hgb 14.7 (14.0-18.0) g/dL Hct 42.3 (42.0-52.0) % MCV 95.5 H (80-90) FL MCH 33.2 H (27-31) PG MCHC 34.8 (33-37) g/dL RDW Std Deviation 43.2 (39-50) fL RDW Coeff of Durga 12.7 (11.5-14.5) % Plt Count 318 (140-350) 10*3/uL MPV 7.5 (7.4-12.2) FL Immature Gran % (Auto) 0.1 (0-5) % Neut % (Auto) 65.7 (50-80) % Lymph % (Auto) 23.5 (10-50) % [place] % (Auto) 9.5 (5-15) % Eos % (Auto) 0.2 (0-8) % Baso % (Auto) 1.0 (0-1) % Immature Gran # (Auto) 0.01 10*3/UL Neut # (Auto) 5.53 10*3/UL Lymph # (Auto) 1.98 10*3/uL [place] # (Auto) 0.80 (0.3-0.8) 10*3/UL Eos # (Auto) 0.02 10*3/UL Baso # (Auto) 0.08 10*3/UL WBC Morphology Comment Normal morphology (NORM) Plt Morphology Comment Normal morphology (NORM) RBC Morph Comment Normal morphology (NORM) PT 10.7 (9.7-11.4) secs INR 1.04 (0.00-5.90) N/A D-Dimer 3.87 H (0.00-0.59) mg/L Sodium 147 H (135-145) meq/L Potassium 3.8 (3.8-5.2) meq/L Chloride 103 (98-112) meq/L Carbon Dioxide 21 L (23-33) meq/L Anion Gap 23 H (5-20) BUN 9 (7-22) mg/dL Creatinine 0.6 L (0.70-1.50) mg/dL Estimated GFR > 60 (>60 ml/min/1.73m(2)) BUN/Creatinine Ratio 15.00 (6-20) Glucose 94 (78-110) mg/dL Calculated Osmolality 302.0 H (267-292) mOsm/kg Lactic Acid 7.6 H (0.70-2.10) MMOL/L Calcium 7.9 L (8.7-10.7) mg/dL Magnesium 2.1 (1.6-2.4) mg/dL Total Bilirubin 0.7 (0.3-1.2) mg/dL AST 106 H (21-57) IU/L ALT 91 H (21-72) IU/L Alkaline Phosphatase 147 H (38-126) IU/L Troponin I < 0.012 (< 0.040) ng/mL C-Reactive Protein 3.0 H (0.0-0.9) mg/dL Total Protein 8.1 H (6.1-8.0) g/dL Albumin 4.3 (3.5-4.8) g/dL Globulin 3.8 (2.50-4.10) g/dL Albumin/Globulin Ratio 1.10 L (1.3-2.0) mg/g Amylase 127 H (30-110) U/L Lipase 346 H (23-300) IU/L Vitamin B12 613 (239-931) pg/mL Vitamin D 25-Hydroxy < 12.8 L (30-100) NG/ML Serum Folate 18.8 (2.76-20.0) NG/ML TSH 1.18 (0.2700-4.2000) uIU/mL Salicylates < 1.0 (0-20) mg/dl Acetaminophen < 10.0 (0-30) ug/mL Serum Alcohol 439 H 19 H (0-10) mg/dL 09/16/16 Range/Units 05:51 WBC 5.23 (4.8-10.8) 10^3/uL RBC 3.85 L (4.70-6.10) 10^6/uL Hgb 12.7 L (14.0-18.0) g/dL Hct 37.1 L (42.0-52.0) % MCV 96.4 H (80-90) FL MCH 33.0 H (27-31) PG MCHC 34.2 (33-37) g/dL RDW Std Deviation 42.3 (39-50) fL RDW Coeff of Durga 12.3 (11.5-14.5) % Plt Count 209 (140-350) 10*3/uL MPV 8.2 (7.4-12.2) FL Immature Gran % (Auto) 0.2 (0-5) % Neut % (Auto) 65.0 (50-80) % Lymph % (Auto) 25.8 (10-50) % [place] % (Auto) 6.9 (5-15) % Eos % (Auto) 1.5 (0-8) % Baso % (Auto) 0.6 (0-1) % Immature Gran # (Auto) 0.01 10*3/UL Neut # (Auto) 3.40 10*3/UL Lymph # (Auto) 1.35 10*3/uL [place] # (Auto) 0.36 (0.3-0.8) 10*3/UL Eos # (Auto) 0.08 10*3/UL Baso # (Auto) 0.03 10*3/UL WBC Morphology Comment Normal morphology (NORM) Plt Morphology Comment Normal morphology (NORM) RBC Morph Comment Normal morphology (NORM) PT (9.7-11.4) secs INR (0.00-5.90) N/A D-Dimer (0.00-0.59) mg/L Sodium 135 (135-145) meq/L Potassium 3.7 L (3.8-5.2) meq/L Chloride 104 (98-112) meq/L Carbon Dioxide 22 L (23-33) meq/L Anion Gap 9 (5-20) BUN 3 L (7-22) mg/dL Creatinine 0.4 L (0.70-1.50) mg/dL Estimated GFR > 60 (>60 ml/min/1.73m(2)) BUN/Creatinine Ratio 7.50 (6-20) Glucose 75 L (78-110) mg/dL Calculated Osmolality 275.0 (267-292) mOsm/kg Lactic Acid (0.70-2.10) MMOL/L Calcium 7.6 L (8.7-10.7) mg/dL Magnesium 2.0 (1.6-2.4) mg/dL Total Bilirubin 1.2 (0.3-1.2) mg/dL AST 65 H (21-57) IU/L ALT 66 (21-72) IU/L Alkaline Phosphatase 114 (38-126) IU/L Troponin I (< 0.040) ng/mL C-Reactive Protein (0.0-0.9) mg/dL Total Protein 6.4 (6.1-8.0) g/dL Albumin 3.3 L (3.5-4.8) g/dL Globulin 3.1 (2.50-4.10) g/dL Albumin/Globulin Ratio 1.00 L (1.3-2.0) mg/g Amylase (30-110) U/L Lipase (23-300) IU/L Vitamin B12 (239-931) pg/mL Vitamin D 25-Hydroxy (30-100) NG/ML Serum Folate (2.76-20.0) NG/ML TSH (0.2700-4.2000) uIU/mL Salicylates (0-20) mg/dl Acetaminophen (0-30) ug/mL Serum Alcohol (0-10) mg/dL Patient Problems - Patient Problem List (1) Multiple rib fractures Current Visit: Yes Status: Acute Qualifiers: Encounter type: initial encounter Fracture type: closed Laterality : left Qualified Description: Closed fracture of multiple ribs of left side , initial encounter Qualifier Code(s): (S22.42XA) Multiple fractures of ribs, left side, initial encounter for closed fracture (2) Alcohol withdrawal Current Visit: Yes Status: Acute Qualifiers: Complication of substance-induced condition: with unspecified complication Qualified Description: Alcohol withdrawal syndrome, with unspecified complication Qualifier Code(s): (F10.239) Alcohol dependence with withdrawal, unspecified (3) Alcohol intoxication Current Visit: Yes Status: Acute Qualifiers: Complication of substance-induced condition: with unspecified complication Qualified Description: Alcoholic intoxication, with unspecified complication Qualifier Code(s): (F10.129) Alcohol abuse with intoxication , unspecified (4) Multiple falls Current Visit: Yes Status: Acute (5) Neuropathy Current Visit: Yes Status: Acute (6) Status post transmetatarsal amputation of right foot Current Visit: Yes Status: Acute (7) Chronic alcoholism Current Visit: Yes Status: Acute (8) Tachycardia Current Visit: Yes Status: Resolved
--- NOTE | 2016-09-18 15:45 | OTI REPORT ---
Thank you for the referral of Benjamin Browne. He was seen on 09/16/16 for an occupational therapy inpatient evaluation secondary to detoxing. SUBJECTIVE: The patient is a 55-year-old male who is being seen secondary to detoxing. The patient had a fall and broke four of his ribs. The patient reports that he lives in [place] by himself. He works at the [employer]; however, he has not been working because he has been drinking quite heavily since July. He says that he will more than likely have a job if he goes back to the [employer]. His goal is to not drink and to return home. He did admit that he is an alcoholic and he has been in treatment four different times and he just does not feel like it helps much. He states he does go to AA meetings when he is trying not to drink. The patient does have seven stairs into his apartment. He states prior to admission he was independent with all activities of daily living and functional transfers as well as maintaining his home if he was not drinking. PAST MEDICAL HISTORY: Past medical history can be found in the patient's medical record. OBJECTIVE FINDINGS: General observations: The patient was very shaky from detoxing. Transfers: He struggled with functional transfers and required mod assist in order to stand and keep his balance. Activities of daily living: While sitting edge of bed the patient needed assistance with lower extremity dressing secondary to decreased balance and decreased cognitive processing. The patient was able to don socks with min assist and increased time. Balance: The patient definitely had balance issues when trying to don shorts while sitting edge of bed. Range of motion: The patient's upper extremity range of motion is within normal limites. Strength: Upper extremity strength is approximately 3+/5. Endurance: Activity tolerance at this time is very poor. He gets very fatigued and needs frequent rest breaks. ASSESSMENT: Problem List: Decreased ability to perform activities of daily living Alcoholism Decreased balance Decreased strength Decreased coping skills Short-Term Goals: To be met by discharge from inpatient: Patient will be able to identify three coping skills that he will apply to his life in order to stay sober. Patient will be able to dress self independently. Patient will be able to complete functional transfers including shower transfers and shower transfers independently and safely. Patient will be able to shower self keeping his balance, without risk of falling. Long-Term Goals: To be met following discharge from inpatient: Patient will return home sober and safe in order to complete ADLs and functional transfers independently. TREATMENT PLAN: Patient will be seen B.I.D during the week and one time per day over the weekend as an inpatient to address the above goals and objectives. INITIAL TREATMENT: Treatment today consisted of the initial evaluation followed by the patient sitting edge of bed dressing self with min assist for balance. We discussed coping abilities and relapse prevention. The patient did state he was willing to try this. The patient completed functional transfer from bed to chair with min assist. YOLI
--- NOTE | 2016-09-18 16:28 | PTI REPORT ---
Thank you for the referral of Benjamin Browne. He was seen on 09/16/16 for an inpatient evaluation secondary to fractured ribs and weakness. SUBJECTIVE: The patient is a 55-year-old male who states that he is a chronic alcoholic. He states that while intoxicated he fell down the stairs leading into his apartment. The patient suffered multiple rib fractures on his left side and was brought into the hospital at that time. The patient states a long standing history of alcoholism with four stints in rehab in the last approximately five years. He states that he has tried to quit but continuously relapses. The patient has attended AA meetings in the past for support but states that he does not believes in the 12 step program and does not attend these meetings regularly. The patient states that he does not want to go back to any type of rehab center and just wants to be able to quit drinking. The patient states that he lives in [place] in an apartment by himself. 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 PAST MEDICAL HISTORY: Past medical history can be found in the patient's medical record. OBJECTIVE FINDINGS: General observations: The patient is alert and oriented to setting upon PT arrival. He does demonstrate tremors in the bilateral upper extremities and ataxic movement along with impulsive behavior with swinging into his transfer and also with trying to stand up. The patient does have a partial amputation of the right foot. He states at times he does wear shoes with an orthotic in them to help with his gait and balance. Bed mobility: The patient was able to move from a supine to seated position. When sitting edge of bed the patient demonstrates a tremor in bilateral upper extremities. Transfers: The patient was able to move from a seated to standing position with mod assist with a very widened base of support and poor initial standing balance. The patient demonstrates bilateral flexion of the knees and trunk in order to help stabilize himself. The patient performed standing to seated transfer independently but with some safety concerns. Ambulation: The patient was able to ambulate with front wheeled walker and contact guard assist for safety x50 feet before fatiguing. The patient demonstrate a very ataxic gait with a widened base of support and need for the walker for hand held assistance. Following ambulation the patient was brought back into room and placed in chair. Strength: Bilateral lower extremity strength is 4/5. ASSESSMENT: The patient has fair to poor rehab potential due to his chronic alcoholism. Problem List: Generalized weakness Decreased endurance Decreased activity tolerance Poor balance Poor safety awareness at times Short-Term Goals: To be met by discharge from inpatient: Patient will be able to ambulate at least 150 feet with appropriate assistive device safely. Patient will be able to ascend and descent one flight of stairs with appropriate assistive device safely. Patient will be able to perform all transfers safely and independently. Long-Term Goals: To be met following discharge from inpatient: Patient will most likely return back to his home in [place] and seek assistance with his chronic alcoholism as he is able to do so and as he so chooses. TREATMENT PLAN: Patient will be seen B.I.D during the week and one time per day over the weekend as an inpatient for general strengthening working on safety with transfers, improving endurance with ambulation, and evaluation of stairs at a later date as the patient becomes more steady as he is going through a detox at this time. INITIAL TREATMENT: Treatment today consisted of the initial evaluation. Following ambulation the patient was brought back into room and placed in chair. He performed standing to seated transfer independently but with some safety concerns. A chair alarm was placed on patient and call light was placed within reach following treatment. YOLI
--- NOTE | 2016-09-18 16:35 | PT AM DAY ---
Diagnosis : Fractured Ribs/Weakness AM - Physical Therapy S: The patient was brought down to therapy and participated in occupational therapy activities prior to physical therapy. The patient was on two liters of oxygen at the start of PT activities as OT stated that he did drop down with his oxygen saturation with minimal activity. O: The patient was instructed in NuStep activities for general mobility and cardiovascular activity x10 minutes. The patient was able to maintain oxygen saturation around 95% while on the two liters of oxygen. His heart rate was between 120-130 when checked performing the NuStep. He did need verbal cues for attention to task as he had a tendency to stop activity without proper cueing. The patient was then instructed in general lower extremity strengthening activities with two pound weights on bilateral lower extremities including alternating long arc quads, alternating marching, resisted hamstring curls, clamshells, and sit to stand transfers with instructions for proper hand placement and safety with activity. The patient did demonstrate times of impulsive behavior such as trying to stand up on his own and also walk on his own. At the end of treatment the patient was able to ambulate 150 feet with contact guard assistance for safety and use of front wheeled walker from therapy to his room. Once in his room he was placed in chair with alarm set and call light within reach. A: The patient tolerated exercises fair today. He does require max verbal cues for attention to task as he has moments where he spaces out and does not perform the activities and also times where he does try to get up by himself. The patient does demonstrate poor safety awareness at times with transfers and fatigues very easily with activities. The patient's heart rate maintained above 100 with activities despite rest breaks. Oxygen saturation did stay above 90% while on two liters of oxygen while performing exercises. P: Continue seeing patient BID during the week and one time per day over the weekend for transfers, ambulation, and range of motion/strengthening exercises. MTDD
[2016-09-20] MEDS ORDERED: Thiamine Tab 100 MG TAB PO SCH (01:17)
--- NOTE | 2016-09-21 09:18 | OT AM DAY ---
Diagnosis : Weakness AM - Occupational Therapy S: The patient reports he is willing to try to not drink. O: Today we went over relapse prevention. The patient seemed to be alert during most of the task but did have trouble staying awake. Nursing stated this may be due to his pain meds. Today the patient participated in learning about relapse prevention and education on possible symptoms and warning signs of relapse. He checked boxes including depressive mood, poor judgment, compulsive and impulsive behavior, unhealthy eating patterns, lack of organization of daily routine, feeling of helplessness which he relates to finances and kids, unhealthy sleeping patterns, and use of substances to elevate mood, apathy and withdrawal from usual activities. He reports that he makes excuses such as when he has a hard day at work, he thinks he needs a drink. The therapist asked the patient to name the top four symptoms and warning signs that he experiences and his response. He says number one is poor judgment because he usually thinks that he can handle it. Number two is feeling helpless so he feels like he can go drink away his thoughts about his kids and finances. Three is lack of daily routine; he doesn't always have a routine schedule at work, so he just goes and drinks. Four is that he doesn't eat properly and he says "beer is food". Today we tried discussing a more positive outlook; however, the patient became very tired after talking about these things. We will discuss these later. A: The patient did participate today and he does not want to drink once he returns home. Our goal is to get him into healthier coping skills and habits once he returns home. P: Continue seeing patient BID during the week and one time per day over the weekend until discharge. YOLI
--- NOTE | 2016-09-21 09:27 | OT PM DAY ---
Diagnosis : Weakness PM - Occupational Therapy S: The patient reports no significant changes. O: The patient completed upper extremity strengthening activities while seated outside. He performed red theraband resisted horizontal abduction, biceps curls, internal/external rotation, shoulder extension, shoulder adduction , and triceps x1 minute for each exercise bilaterally. Upstairs in his room the patient completed shaving activities. He was able to stand x10 minutes at the sink while completing shaving. He did become a little bit weak and needed to sit. He still has safety awareness difficulties as he tends to reach for the chair. He is still very unsteady; he needs min assist for balance and cues for safety. A: The patient was more alert during these activities this afternoon. We also discussed more positive coping activities once he returns home including the library where he can rent movies. He does not like to go out for coffee so we talked about once or twice a week going out for iced tea which he did state he would enjoy. He also stated he would like to go to the [facility] to work on cardio. It was recommended going two times a week at first. Our goal will be getting him a schedule to keep his mind off of drinking. P: Continue seeing patient BID during the week and one time per day over the weekend until discharge. YOLI
--- NOTE | 2016-09-21 10:48 | OT AM DAY ---
Diagnosis : Weakness AM - Occupational Therapy S: The patient reports that he is improving. O: Today the patient demonstrated a lot of balance and impulsivity. We worked on the patient dressing himself; he could have fallen four different times while getting on his pants; he tends to fall backward. The patient then was able to don shirt while sitting. He did not use the walker and stated he didn't need it even though his balance was very poor this morning. He was able to stand at sink to complete ADL activities x5 minutes. The patient then came downstairs. We talked about positive coping skills once the patient is discharged. He is hoping to find an activity to perform on a daily basis. A: The patient is participating in therapy. He still has severe balance difficulties and is impulsive. P: Continue seeing patient BID during the week and one time per day over the weekend until discharge. YOLI
== END 2016-09-18 14:36 | disposition swing bed (61) | DRG 184 ==
LOC: ER 21:55 → MED/SURG 09-15 01:12
PROVIDERS: ADMIT Family Medicine; ATTEND Family Medicine
DX: S22.42XA Multiple fractures of ribs, left side, initial encounter for closed fracture (principal); F10.239 Alcohol dependence with withdrawal, unspecified; W18.39XA Other fall on same level, initial encounter; F10.229 Alcohol dependence with intoxication, unspecified; G62.9 Polyneuropathy, unspecified; Z89.431 Acquired absence of right foot; R00.0 Tachycardia, unspecified
CPT/HCPCS: 36415; 70450; 71275; 74177; 80053; 80320; 80329; 82150; 82306; 82607; 82746; 83605; 83690; 83735; 84443; 84484; 85025; 85379; 85610; 86140; 87040; 87077; 87186; 87641; 93005; 93010; 94150; 94761; 96365; 96375; 97110; 97112; 97161; 97165; 97530; 97535; 99285; J1170; J1885; J2060; J3360; J3370; J3411; J3475; J3490; J7030; J7050; J7620

== ENCOUNTER 2016-09-18 14:05 | Inpatient (IN) | payer SELFPAY ==
[2016-09-18] MEDS ORDERED: CYCLOBENZAPRINE 10 MG TABLET PO PRN (14:13)
[2016-09-18] MEDS ORDERED: NICOTINE 7 MG /DAY PATCH TRANSDERM PRN (14:13)
[2016-09-18] MEDS ORDERED: ERGOCALCIFEROL 50,000 IU CAPSULE PO SCH (14:15)
--- NOTE | 2016-09-18 14:44 | PDOC ---
History and Physical - History of Present Illness Date and Time of Service: 09/18/2016, 1418 Chief Complaint: Rib fractures, alcohol intoxication which is resolved, alcohol withdrawal, abnormal gait and weakness History of Present Illness: This a 55-year-old male that was admitted on the night of the after midnight when he fell down the stairs and broke nearly every rib on the left side. He was brought into the emergency room and found to have a blood alcohol of over 400. The patient was admitted, placed on the CIWA protocol, and pain control was instituted. In terms of his alcohol withdrawal, the patient did fairly well. He was managed with the CIWA protocol and also on Librium. His alcohol withdrawal was mild, but could still have delayed withdrawal. No evidence of seizures. His rib pain was controlled with opiates and Flexeril for muscle spasm. Anti-inflammatories were also added. Physical therapy and occupational therapy were ordered. The patient continues to struggle with gait and cannot handle stairs at this point. There were no other exacerbating factors. It is difficult to say if alcohol is causing any problems with his gait and stance at this point. The patient states that it really isn't causing problems at home outside of this episode. Head CT scan was negative for any bleed. He did have tachycardia during the hospital stay and a CT scan of the chest was negative for pulmonary emboli but there is an effusion present. He definitely thinks he needs more work with stairs. At this time, we are admitting him to the swing bed for continued physical therapy and occupational therapy. Past Medical History Medical History: 1. Chronic alcoholism. 2. Peripheral neuropathy, probably related to alcohol. 3. Tobacco abuse. 4. Chronic ulcers in feet with chronic osteomyelitis proven by MRI scan. Surgical History: 1. Appendectomy. 2. Transmetatarsal amputation Pertinent Family History: Significant for heart disease and diabetes in his father. He states his mother is fairly healthy at 82 years Tobacco Use: Current Every Day Smoker Substance Use Type: None Alcohol Use: Heavy Medication / Allergies Home Medications: Home Medications Medication Instructions Recorded Confirmed Type Celecoxib [Celebrex] 200 mg PO BID #20 capsule 09/18/16 Rx Chlordiazepoxide HCl [Librium] 25 mg PO BID #20 capsule 09/18/16 Rx Cyclobenzaprine HCl [Flexeril] 10 mg PO TID PRN #20 tab 09/18/16 Rx Ergocalciferol [Vitamin D] 50,000 iu PO Q7D #14 cap 09/18/16 Rx Folic Acid 1 mg PO DAILY #20 tab 09/18/16 Rx HYDROcodone/APAP 7.5/325 Tab 1 - 2 tab PO Q4H PRN #14 tab 09/18/16 Rx [[place] 7.5/325 Tab] Multivitamin Tab [Thera Tab] 1 tab PO DAILY #14 tab 09/18/16 Rx Nicotine 7mg Patch [Nicoderm CQ 1 patch TRANSDERM DAILY PRN #7 09/18/16 Rx 7mg Patch] patch Pantoprazole Sodium [Protonix] 40 mg PO AC BK #30 tab 09/18/16 Rx Thiamine HCl [Vitamin B-1] 100 mg PO DAILY #30 tab 09/18/16 Rx Allergies/Adverse Reactions: Allergies Allergy/AdvReac Type Severity Reaction Status Date / Time Sulfa (Sulfonamide AdvReac DIFFICULTY Verified 09/18/16 06:37 Antibiotics) SWALLOWING Review of Systems - Constitutional Constitutional: REPORTS: Other (Negative for fever or chills.) - Respiratory Respiratory: REPORTS: Negative System Review - Cardiovascular Cardiovascular: REPORTS: Negative System Review - Neurological Neurologic: REPORTS: Difficulty Walking - Additonal Details Additional ROS Details: Still has pain from rib fractures but states it's better control. Poor gait Exam - Vitals Vital Signs: Vital Signs Height 6 ft - General General Appearance: POSITIVE: No Acute Distress, Cooperative - Eye Eye Exam: POSITIVE: No Scleral Icterus - Respiratory Respiratory Exam: POSITIVE: Clear to Auscultation - Bilaterally, Breathing Non Labored - Cardiovascular Cardiovascular Exam: POSITIVE: RRR, No Murmur, No Clicks, No Gallops, No Rubs, No JVD - GI/Abdominal GI/Abdominal Exam: POSITIVE: Normal Bowel Sounds, Non Tender, Non Distended, Soft - Extremities Extremities Exam: POSITIVE: No Clubbing Present, No Edema Present, No Cyanosis Present - Neurological Neurological Exam: POSITIVE: Alert, Oriented x 3, No Facial Droop, Speech Intact / Clear, Moves All Extremities Equally, Abnormal Gait Assessment and Plan - Patient Problems (1) Multiple rib fractures Status: Acute Qualifiers: Encounter type: initial encounter Fracture type: closed Laterality : left Qualified Description: Closed fracture of multiple ribs of left side , initial encounter Qualifier Code(s): (S22.42XA) Multiple fractures of ribs, left side, initial encounter for closed fracture (2) Multiple falls Status: Acute (3) Chronic alcoholism Status: Acute (4) Chronic osteomyelitis of foot Status: Acute (5) Neuropathy Status: Acute (6) Status post transmetatarsal amputation of right foot Status: Acute (7) Vitamin D deficiency Status: Acute - Assessment / Plan Additional Assessment/Plan Details: Admit the patient to swing bed. Continue opiates/anti-inflammatory/muscle relaxants for pain control. Continue Librium twice a day for now and perhaps titrate slowly for chronic alcoholism/resolving alcohol withdrawal. Replace vitamins. Please note the patient has a vitamin D deficiency as well. Thiamine/multivitamin/folic acid Continue PT and OT to help with antalgic gait.
--- NOTE | 2016-09-18 15:25 | OT.PROG ---
Progress Note Progress Note: S- Pt. stated that he still understands that he has balance issues and that it is like having to relearn how to walk. O- Pt tolerated UE strengthening activities for 15 min with min pain. Pt completed a endurance activity for 7 min with 100% accuracy. Pt completed 5 sit to stands and required max prompting to utilize chair to push off rather than a walker or other unstable objects. Pt walked 150ft and required min assist with verbal prompting to pick feet up when taking steps. In the last 25 ft pt began dragging left foot secondary to fatigue. A- Pt would benefit continuation of skilled OT services to increase balance and strength for safety when walking. P- Continue POC.
--- NOTE | 2016-09-18 18:11 | EKG ---
[address] [address] Measurements Intervals [place] Rate: 107 P: 56 MA: 124 QRS: 61 QRSD: 81 T: 79 QT: 345 QTc: 408 Interpretive Statements SINUS TACHYCARDIA ABNORMAL RHYTHM ECG Compared to ECG 09/14/2016 23:00:02 ST (T wave) deviation no longer present Electronically Signed On 09-18-16 21:19:01 MDT by Den Lewis [id number]
[2016-09-18] MEDS: HYDROcodone-APAP 7.5 MG-325 MG TABLET PO PRN (18:51)
[2016-09-18] MEDS ORDERED: ChlordiazePOXIDE Cap 25 MG CAPSULE PO SCH ×2 (21:00)
[2016-09-18] MEDS: ChlordiazePOXIDE Cap 25 MG CAPSULE PO SCH (21:08)
[2016-09-18] MEDS: CELECOXIB 200 MG CAPSULE PO SCH (21:08)
[2016-09-19] MEDS: HYDROcodone-APAP 7.5 MG-325 MG TABLET PO PRN ×4 (08:11→22:28)
[2016-09-19] MEDS: PANTOPRAZOLE 40 MG TABLET PO SCH (08:12)
[2016-09-19] MEDS: CELECOXIB 200 MG CAPSULE PO SCH ×2 (08:12→20:11)
[2016-09-19] MEDS: Multivitamin Tab 1 TAB PO SCH (08:12)
[2016-09-19] MEDS: Thiamine Tab 100 MG TAB PO SCH (08:12)
[2016-09-19] MEDS: ChlordiazePOXIDE Cap 25 MG CAPSULE PO SCH ×3 (08:12→20:11)
[2016-09-19] MEDS: FOLIC ACID 1 MG TABLET PO SCH (08:12)
--- NOTE | 2016-09-19 13:50 | PDOC(PROG) ---
Date and Time of Service: 09/19/2016 1:48 PM Interval History: Subjective Patient is denying symptoms, he fell and this resulted in left rib fractures, he was intoxicated then and now he is on swing bed to continue PT and OT. He has a history of peripheral neuropathy, has history of plantar right foot ulver for a few months he said he's been changing the dressing himself. He gave a history of osteomyelitis he was on IV antibiotics and switched to Keflex however he's not on it anymore. Objective : Data - Labs Labs - Last 24 Hours: Laboratory Results 09/18/16 Range/Units 18:10 Troponin I < 0.012 (< 0.040) ng/mL Objective : Exam - General General Appearance: No Acute Distress, Cooperative - Head Head Exam: Normal Inspection - Eye Eye Exam: Normal Appearance - ENT ENT Exam: Normal Exam - Neck Neck Exam: Normal Inspection - Respiratory Respiratory Exam: Clear to Auscultation - Bilaterally - Cardiovascular Cardiovascular Exam: RRR - GI/Abdominal GI/Abdominal Exam: Normal Bowel Sounds, Non Tender, Non Distended, Soft - External Exam: Deferred - Extremities Additional Extremities Exam Details: A transmetatarsal amputation of the foot on the right. There is a plantar ulceration on the plantar aspect of the foot - Back Back Exam: Normal Inspection - Neurological Neurological Exam: Alert, Oriented x 3 - Psychiatric Psychiatric Exam: Normal Affect Assessment and Plan - Patient Problems (1) Multiple rib fractures Current Visit: No Status: Acute Comment: Continue current pain medications. Pain seemed to be controlled. Qualifiers: Encounter type: initial encounter Fracture type: closed Laterality : left Qualified Description: Closed fracture of multiple ribs of left side , initial encounter Qualifier Code(s): (S22.42XA) Multiple fractures of ribs, left side, initial encounter for closed fracture (2) Multiple falls Current Visit: No Status: Acute Comment: Continue PT and OT. (3) Ulcer of right foot Current Visit: Yes Status: Acute Comment: Continue wound dressing, I did speak with Dr. Rutledge will order x- rays of his foot. (4) Chronic alcoholism Current Visit: No Status: Acute Comment: He was started on Librium protocol withdrawal he doesn't seem to be in withdrawal now. He is on multivitamins continue
--- NOTE | 2016-09-19 14:38 | DI ---
HISTORY: Right foot ulcer. FINDINGS: Examination reveals amputation of the distal right foot at the level of the distal metatar sals. There is mild soft tissue swelling with small subcutaneous emphysema in the inferior aspect of the distal end of the amputated first metatarsal, probably due to cellulitis or early abscess formati on. There is no evidence of recent fracture, dislocation or osteomyelitis. IMPRESSION: 1. Mild soft tissue swelling with small subcutaneous emphysema in the inferior aspect of the distal end of the amputated first metatarsal. This is likely due to cellulitis or early abscess formation. Clinical correlation is requested.
[2016-09-19 16:44] LABS: BASOPHILS # (AUTO) 0.02 10*3/UL; BASOPHILS % (AUTO) 0.3 % (0-1); EOSINOPHILS # (AUTO) 0.23 10*3/UL; EOSINOPHILS % (AUTO) 3.5 % (0-8); HEMATOCRIT 39.1 % (42.0-52.0); HEMOGLOBIN 13.2 g/dL (14.0-18.0); LYMPHOCYTES # (AUTO) 1.71 10*3/uL; MEAN CORPUSCULAR HEMOGLOBIN 33.2 PG (27-31); MEAN CORPUSCULAR HGB CONC 33.8 g/dL (33-37); MEAN CORPUSCULAR VOLUME 98.5 FL (80-90); MEAN PLATELET VOLUME 8.5 FL (7.4-12.2); MONOCYTES # (AUTO) 0.97 10*3/UL (0.3-0.8); MONOCYTES % (AUTO) 14.7 % (5-15); NEUTROPHILS # (AUTO) 3.62 10*3/UL; RED BLOOD COUNT 3.97 10^6/uL (4.70-6.10)
[2016-09-19 16:49] LABS: PLATELET MORPHOLOGY COMMENT NORMAL MORPHOLOGY (NORM); RBC MORPHOLOGY COMMENT NORMAL MORPHOLOGY (NORM); WBC MORPHOLOGY COMMENT NORMAL MORPHOLOGY (NORM)
[2016-09-19 16:55] LABS: BLOOD UREA NITROGEN 11 mg/dL (7-22); BUN/CREATININE RATIO 13.75 (6-20); C-REACTIVE PROTEIN 6.4 mg/dL (0.0-0.9); CALCIUM 8.5 mg/dL (8.7-10.7); EST GLOMERULAR FILTRATION > 60 (>60 ml/min/1.73m(2)); SERUM ALBUMIN 3.8 g/dL (3.5-4.8)
--- NOTE | 2016-09-19 23:13 | ORTHO.CON ---
Consult Note - Consult Consult Date: 09/19/16 Reason for Consult: Other (Orthopedic) Requesting Physician: Lino Alexander Primary Care Provider: NONE NONE - History of Present Illness History of Present Illness: Patient is a 55-year-old male with a history of peripheral neuropathy likely secondary to alcohol use in the past was have a chronic issue with the ulcerations of the right foot where he underwent a transmetatarsal amputation in [place]. It started up initially with amputation of the great toe then portions of the medial aspect of the foot and he elected for trans-metatarsal amputation. Approximately to get all the plantar aspect of the right foot underneath the remaining portion of the first ray this has been initially identified and treated by his primary care doctor who referred him to infectious disease and then subsequently to orthopedics and [facility] but he did not go to these appointments. Patient was treated for IV antibiotics he thinks for 6 weeks and then converted over to oral Keflex and then he states he is discontinued these medications because he feels his body needs time away from the antibiotics and he thinks and the bite the open wound that he has been dressing over the last 6 months. Patient was admitted for multiple rib fractures after a fall. Patient has been dressing his own wound and the hospitalist wished for a consultation since it was rather odiferous and a history of osteomyelitis Past Medical History Medical History: 1. Chronic alcoholism. 2. Peripheral neuropathy, probably related to alcohol. 3. Tobacco abuse. 4. Chronic ulcers in feet with chronic osteomyelitis proven by MRI scan. Surgical History: 1. Appendectomy. 2. Transmetatarsal amputation Pertinent Family History: Significant for heart disease and diabetes in his father. He states his mother is fairly healthy at 82 years Tobacco Use: Current Every Day Smoker Substance Use Type: None Alcohol Use: Heavy Medication / Allergies Home Medications: Home Medications Medication Instructions Recorded Confirmed Type Celecoxib [Celebrex] 200 mg PO BID #20 capsule 09/18/16 Rx Chlordiazepoxide HCl [Librium] 25 mg PO BID #20 capsule 09/18/16 Rx Cyclobenzaprine HCl [Flexeril] 10 mg PO TID PRN #20 tab 09/18/16 Rx Ergocalciferol [Vitamin D] 50,000 iu PO Q7D #14 cap 09/18/16 Rx Folic Acid 1 mg PO DAILY #20 tab 09/18/16 Rx HYDROcodone/APAP 7.5/325 Tab 1 - 2 tab PO Q4H PRN #14 tab 09/18/16 Rx [[place] 7.5/325 Tab] Multivitamin Tab [Thera Tab] 1 tab PO DAILY #14 tab 09/18/16 Rx Nicotine 7mg Patch [Nicoderm CQ 1 patch TRANSDERM DAILY PRN #7 09/18/16 Rx 7mg Patch] patch Pantoprazole Sodium [Protonix] 40 mg PO AC BK #30 tab 09/18/16 Rx Thiamine HCl [Vitamin B-1] 100 mg PO DAILY #30 tab 09/18/16 Rx Allergies/Adverse Reactions: Allergies Allergy/AdvReac Type Severity Reaction Status Date / Time Sulfa (Sulfonamide AdvReac DIFFICULTY Verified 09/18/16 23:22 Antibiotics) SWALLOWING Exam - - Exam: Examination of the right foot shows that he has a dressing in place as was removed and is a fair amount of drainage on this which was put on a couple hours ago and he had been walking on this. With this removed is no active drainage she has a ulcer on the plantar aspect of the foot under the area of where the first metatarsal ray distal end is located. Do not see bone. There is soft tissue but there is certainly undermining of the local tissues in this area. Patient with altered sensation in the foot. The foot from approximately the second or third metatarsal laterally looks healthy. There is no surrounding erythema. Ankle motion is generally preserved. Patient has decent hair pattern on the distal portion of his leg. He has palpable pulses. Patient with brisk refill. Radiographs show transmetatarsal amputation with some extra bone around the distal aspect of the first metatarsal ray region. Soft tissue ulcer formation and undermining can be seen. - Vitals Vital Signs: Vital Signs Temperature 98.0 F Temperature Source Temporal Artery Scan Pulse Rate [Apical] 100 Pulse Rate [Pulse Oximeter] 76 Respiratory Rate 22 Blood Pressure [Left Arm] 108/79 Pulse Ox 95 Oxygen Delivery Method Room Air Height 6 ft Weight 80.739 kg Results - Labs CBC and BMP: 09/19/16 16:30 09/19/16 16:30 Labs - Last 24 Hours: Laboratory Results 09/19/16 Range/Units 16:30 WBC 6.58 (4.8-10.8) 10^3/uL RBC 3.97 L (4.70-6.10) 10^6/uL Hgb 13.2 L (14.0-18.0) g/dL Hct 39.1 L (42.0-52.0) % MCV 98.5 H (80-90) FL MCH 33.2 H (27-31) PG MCHC 33.8 (33-37) g/dL RDW Std Deviation 44.9 (39-50) fL RDW Coeff of Durga 12.6 (11.5-14.5) % Plt Count 217 (140-350) 10*3/uL MPV 8.5 (7.4-12.2) FL Immature Gran % (Auto) 0.5 (0-5) % Neut % (Auto) 55.0 (50-80) % Lymph % (Auto) 26.0 (10-50) % [place] % (Auto) 14.7 (5-15) % Eos % (Auto) 3.5 (0-8) % Baso % (Auto) 0.3 (0-1) % Immature Gran # (Auto) 0.03 10*3/UL Neut # (Auto) 3.62 10*3/UL Lymph # (Auto) 1.71 10*3/uL [place] # (Auto) 0.97 H (0.3-0.8) 10*3/UL Eos # (Auto) 0.23 10*3/UL Baso # (Auto) 0.02 10*3/UL WBC Morphology Comment Normal morphology (NORM) Plt Morphology Comment Normal morphology (NORM) RBC Morph Comment Normal morphology (NORM) ESR 44 H (0-15) MM/HR Sodium 133 L (135-145) meq/L Potassium 3.9 (3.8-5.2) meq/L Chloride 99 (98-112) meq/L Carbon Dioxide 26 (23-33) meq/L Anion Gap 8 (5-20) BUN 11 (7-22) mg/dL Creatinine 0.8 (0.70-1.50) mg/dL Estimated GFR > 60 (>60 ml/min/1.73m(2)) BUN/Creatinine Ratio 13.75 (6-20) Glucose 101 (78-110) mg/dL Calculated Osmolality 274.0 (267-292) mOsm/kg Calcium 8.5 L (8.7-10.7) mg/dL Total Bilirubin 0.9 (0.3-1.2) mg/dL AST 50 (21-57) IU/L ALT 49 (21-72) IU/L Alkaline Phosphatase 127 H (38-126) IU/L C-Reactive Protein 6.4 H (0.0-0.9) mg/dL Total Protein 7.3 (6.1-8.0) g/dL Albumin 3.8 (3.5-4.8) g/dL Globulin 3.6 (2.50-4.10) g/dL Albumin/Globulin Ratio 1.00 L (1.3-2.0) mg/g Assessment and Plan - Assessment / Plan Additional Assessment/Plan Details: Impression: Right foot plantar ulcer with history of osteomyelitis Plan: We discussed the patient's current condition and clinical findings as it pertains to the current situation. Surgical versus nonsurgical options risks and benefits were discussed and reviewed. Options moving forward include but are not limited to continued choice to live with their current condition; evaluate their current condition further with imaging studies and/or diagnostic testing, etc.; treat problem/problems with surgical versus nonsurgical methods. The patient demonstrates a clear understanding of our discussion. All questions were answered. Had a long discussion with the patient in regard to the plantar ulcer and likely osteomyelitis. Patient is fairly confident he does not have osteomyelitis despite my discussions with him. Discussed treatment for this ulceration and osteomyelitis with attempt at removal of the first ray and possible portion of the second ray and seeing if closure would be possible. I think this may be difficult since the ulcer size and location may preclude any type of revision amputation of the limited nature. I think other options of show parts or Sym[place] amputation are not ideal and his best option may be a below knee amputation. Patient has no interest in this at the current time. Patient wishes to continue with his previous wound care. I discussed my concerns with development of infection which may spread up the leg and force and necessitate a more proximal amputation. He understands this but still wishes to just continue with his local wound care. I suggested when he is discharged to follow up with infectious disease/orthopedics and [facility] as previously recommended. Please contact if there are any other issues.
[2016-09-20] MEDS: HYDROcodone-APAP 7.5 MG-325 MG TABLET PO PRN ×3 (06:52→20:55)
[2016-09-20] MEDS: PANTOPRAZOLE 40 MG TABLET PO SCH (06:53)
--- NOTE | 2016-09-20 08:58 | PDOC(PROG) ---
Date and Time of Service: 09/20/2016 8:53 AM Interval History: Subjective No new symptoms, pain in the chest seems to be improved. No shortness of breath. Objective : Data - Labs CBC and BMP: 09/19/16 16:30 09/19/16 16:30 Labs - Last 24 Hours: Laboratory Results 09/19/16 Range/Units 16:30 WBC 6.58 (4.8-10.8) 10^3/uL RBC 3.97 L (4.70-6.10) 10^6/uL Hgb 13.2 L (14.0-18.0) g/dL Hct 39.1 L (42.0-52.0) % MCV 98.5 H (80-90) FL MCH 33.2 H (27-31) PG MCHC 33.8 (33-37) g/dL RDW Std Deviation 44.9 (39-50) fL RDW Coeff of Durga 12.6 (11.5-14.5) % Plt Count 217 (140-350) 10*3/uL MPV 8.5 (7.4-12.2) FL Immature Gran % (Auto) 0.5 (0-5) % Neut % (Auto) 55.0 (50-80) % Lymph % (Auto) 26.0 (10-50) % [place] % (Auto) 14.7 (5-15) % Eos % (Auto) 3.5 (0-8) % Baso % (Auto) 0.3 (0-1) % Immature Gran # (Auto) 0.03 10*3/UL Neut # (Auto) 3.62 10*3/UL Lymph # (Auto) 1.71 10*3/uL [place] # (Auto) 0.97 H (0.3-0.8) 10*3/UL Eos # (Auto) 0.23 10*3/UL Baso # (Auto) 0.02 10*3/UL WBC Morphology Comment Normal morphology (NORM) Plt Morphology Comment Normal morphology (NORM) RBC Morph Comment Normal morphology (NORM) ESR 44 H (0-15) MM/HR Sodium 133 L (135-145) meq/L Potassium 3.9 (3.8-5.2) meq/L Chloride 99 (98-112) meq/L Carbon Dioxide 26 (23-33) meq/L Anion Gap 8 (5-20) BUN 11 (7-22) mg/dL Creatinine 0.8 (0.70-1.50) mg/dL Estimated GFR > 60 (>60 ml/min/1.73m(2)) BUN/Creatinine Ratio 13.75 (6-20) Glucose 101 (78-110) mg/dL Calculated Osmolality 274.0 (267-292) mOsm/kg Calcium 8.5 L (8.7-10.7) mg/dL Total Bilirubin 0.9 (0.3-1.2) mg/dL AST 50 (21-57) IU/L ALT 49 (21-72) IU/L Alkaline Phosphatase 127 H (38-126) IU/L C-Reactive Protein 6.4 H (0.0-0.9) mg/dL Total Protein 7.3 (6.1-8.0) g/dL Albumin 3.8 (3.5-4.8) g/dL Globulin 3.6 (2.50-4.10) g/dL Albumin/Globulin Ratio 1.00 L (1.3-2.0) mg/g Objective : Exam - General General Appearance: No Acute Distress, Cooperative - Head Head Exam: Normal Inspection - Eye Eye Exam: Normal Appearance - ENT ENT Exam: Normal Exam - Neck Neck Exam: Normal Inspection - Respiratory Respiratory Exam: Clear to Auscultation - Bilaterally - Cardiovascular Cardiovascular Exam: RRR - GI/Abdominal GI/Abdominal Exam: Normal Bowel Sounds, Non Tender, Non Distended, Soft - Rectal Rectal Exam: Deferred - Extremities Additional Extremities Exam Details: Dressing applied to the ulcer on the right foot. Ulcer on the planter surface of the first left big toe - Back Back Exam: Normal Inspection - Neurological Neurological Exam: Alert, Oriented x 3, CN II-XII Intact - Psychiatric Psychiatric Exam: Normal Affect Assessment and Plan - Patient Problems (1) Multiple rib fractures Current Visit: No Status: Acute Comment: Continue current pain medications. Continue PT and OT. Qualifiers: Encounter type: initial encounter Fracture type: closed Laterality : left Qualified Description: Closed fracture of multiple ribs of left side , initial encounter Qualifier Code(s): (S22.42XA) Multiple fractures of ribs, left side, initial encounter for closed fracture (2) Multiple falls Current Visit: No Status: Acute Comment: Continue PT (3) Ulcer of right foot Current Visit: Yes Status: Acute Comment: Per my discussion with Dr. Rutledge yesterday, he thought he needs surgery but the patient was not interested. I did talk to the patient today I did tell him the option is to follow up back again with the infectious disease or orthopedic in [place]. He seems more interested to follow-up with physicians here. I told him probably will book an appointment as an outpatient Dr. Rutledge once he is back. The ulceration is chronic and is going on for maybe a year. Was treated with the IV antibiotics last year but he decided to quit that on his own he followed up with infectious disease they gave him a month of Keflex and he suppose to follow up with them but he didn't. The logic behind it was the he wanted to save his limb as much as possible but this doesn't seem to be the case as the ulcer is not healing. I told him the risk is the development of an acute infection at one point that he'll need to have an emergent surgery. He will think about it and decide if he will follow-up with Dr Anton. (4) Chronic alcoholism Current Visit: No Status: Acute Comment: Continue multiple vitamins. He said he plans to quit.
[2016-09-20] MEDS: FOLIC ACID 1 MG TABLET PO SCH (09:13)
[2016-09-20] MEDS: ChlordiazePOXIDE Cap 25 MG CAPSULE PO SCH ×3 (09:13→20:55)
[2016-09-20] MEDS: CELECOXIB 200 MG CAPSULE PO SCH ×2 (09:13→20:55)
[2016-09-20] MEDS: Thiamine Tab 100 MG TAB PO SCH (09:14)
[2016-09-20] MEDS: Multivitamin Tab 1 TAB PO SCH (09:14)
[2016-09-20] MEDS ORDERED: CALCIUM CARBONATE 500 MG (TUMS) CHEWABLE TABLET PO PRN (09:27)
--- NOTE | 2016-09-20 09:45 | PT.PROG ---
Progress Note Progress Note: S: Benjamin is doing well this AM. Agreed to work with PT. States that he would like to try working on ambulation with SPC again. O: Treatment consisted of: ambulation x 150 feet from room to therapy with SPC and CGA x 1 for safety. Instruction in ther ex - nustep x 10 minutes for cardiovascular work, 3# weighted alternating LAQ's and marching 2x 60 sec/ea, wall dangelo in all directions x 10, functional activity - boxes up on 4 inch and 6 inch followed by up/over on the 4 inch and 6 inch boxes with SECURITY ANALYST and SPC for safety, 10 x sit to stand transfers with focus on slow, controlled movements , ambulation with SPC and CGA x 1 for safety x 300 feet. Pt was brought back up to room and left in chair with alarm set and call light within reach. Pt was also issued a brace for rib fxs. A: Tolerated treatment better than previous sessions. Required mod cuing for foot placement with stairs but improved from yesterday with box activity as he was more aware of foot placement. Required mod VC for sit to stands as he has tendencies to plop backwards. Demo improved ambulation with SPC and is appropriate to transition from FWW to SPC. P: Continue per POC. Reassess stairs tomorrow.
--- NOTE | 2016-09-20 11:15 | PT.PROG ---
Progress Note Progress Note: S: Pt reports that he is doing well and has been ambulating around nurses station with SPC. O: Treatment consisted of: ambulation x 150 feet from room to therapy with SBA x 1 for safety and use of SPC. Instruction in ther ex - 10 minutes on nustep, 10 times sit to stand transfers, l/e strengthening activities. Pt refused dressing change for right foot as he stated that the MD had already changed it earlier today and he prefers to re-dress it himself. Pt performed 5 flights of stairs with SPC and AVIONICS INSTALLER x 1 on railing - 3 flights outside and 2 inside (CGA x 1 for safety) and ambulated x 20 minutes on varying surfaces outside - sidewalk , grass and up/down curbs. Pt was left in chair with call light in reach. Nursing gave the okay that patient no longer needed chair alarm. A: Pt is ambulating safer and more steady with good use of SPC. Pt performed the stairs better on this date and no concerns with LOB as he has been getting his foot all the way on the step - required no VC. Improved endurance and tolerance for exercise. Impulsive at times with following directions. P: Continue per POC.
[2016-09-21] MEDS: HYDROcodone-APAP 7.5 MG-325 MG TABLET PO PRN ×3 (07:21→20:31)
[2016-09-21] MEDS: PANTOPRAZOLE 40 MG TABLET PO SCH (07:22)
[2016-09-21] MEDS: FOLIC ACID 1 MG TABLET PO SCH (08:31)
[2016-09-21] MEDS: Multivitamin Tab 1 TAB PO SCH (08:31)
[2016-09-21] MEDS: Thiamine Tab 100 MG TAB PO SCH (08:31)
[2016-09-21] MEDS: ChlordiazePOXIDE Cap 25 MG CAPSULE PO SCH ×3 (08:31→20:32)
[2016-09-21] MEDS: CELECOXIB 200 MG CAPSULE PO SCH ×2 (08:31→20:32)
--- NOTE | 2016-09-21 11:00 | OTI REPORT ---
Thank you for the referral of Benjamin Browne. He was seen on 09/18/16 [facility] secondary to weakness. SUBJECTIVE: The patient is a 55-year-old male who is being seen secondary to detoxing. The patient had a fall and broke four of his ribs. The patient reports that he lives in [place] by himself. He works at the [employer]; however, he has not been working because he has been drinking quite heavily since July. He says that he will more than likely have a job if he goes back to the [employer]. His goal is to not drink and to return home. He did admit that he is an alcoholic and he has been in treatment four different times and he just does not feel like it helps much. He states he does go to AA meetings when he is trying not to drink. The patient does have seven stairs into his apartment. He states prior to admission he was independent with all activities of daily living and functional transfers as well as maintaining his home if he was not drinking. PAST MEDICAL HISTORY: Past medical history can be found in the patient's medical record. OBJECTIVE FINDINGS: Transfers: He struggled with functional transfers and required mod assist in order to stand and keep his balance. Activities of daily living: While sitting edge of bed the patient needed assistance with lower extremity dressing secondary to decreased balance and decreased cognitive processing. The patient was able to don socks with min assist and increased time. Balance: The patient definitely had balance issues when trying to don shorts while sitting edge of bed. Range of motion: The patient's upper extremity range of motion is within normal limites. Strength: Upper extremity strength is approximately 3+/5. Endurance: Activity tolerance at this time is very poor. He gets very fatigued and needs frequent rest breaks. ASSESSMENT: Problem List: Decreased ability to perform activities of daily living Alcoholism Decreased balance Decreased strength Decreased coping skills Short-Term Goals: To be met by discharge from [facility]: Patient will be able to identify three coping skills that he will apply to his life in order to stay sober. Patient will be able to dress self independently. Patient will be able to complete functional transfers including shower transfers and shower transfers independently and safely. Patient will be able to shower self keeping his balance, without risk of falling. Long-Term Goals: To be met following discharge from [facility]: Patient will return home sober and safe in order to complete ADLs and functional transfers independently. TREATMENT PLAN: Patient will be seen B.I.D during the week and one time per day over the weekend as a [facility] patient to address the above goals and objectives. INITIAL TREATMENT: Treatment today consisted of the [facility] evaluation followed by the patient performing therapeutic exercises including arm bike x5 minutes forward, wall pulleys in all planes and ranges, and digi-flex. We did discuss more positive coping techniques that the patient wants to apply once he returns home. YOLI
--- NOTE | 2016-09-21 12:08 | PTI REPORT ---
Thank you for the referral of Benjamin Browne. He was seen on 09/18/16 for a [facility] evaluation secondary to rib fractures and weakness. SUBJECTIVE: The patient is a 55-year-old male who states that he is a chronic alcoholic. He states that while intoxicated he fell down the stairs leading into his apartment. The patient suffered multiple rib fractures on his left side and was brought into the hospital at that time. The patient states a long standing history of alcoholism with four stints in rehab in the last approximately five years. He states that he has tried to quit but continuously relapses. The patient has attended AA meetings in the past for support but states that he does not believes in the 12 step program and does not attend these meetings regularly. The patient states that he does not want to go back to any type of rehab center and just wants to be able to quit drinking. The patient states that he lives in [place] in an apartment by himself. 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 PAST MEDICAL HISTORY: Past medical history can be found in the patient's medical record. OBJECTIVE FINDINGS: General observations: The patient states he is doing well this afternoon. He is willing to participate in physical therapy. Bed mobility: The patient was able to move from a supine to seated position. When sitting edge of bed the patient demonstrates a tremor in bilateral upper extremities. Transfers: The patient was able to move from a seated to standing position with mod assist with a very widened base of support and poor initial standing balance. The patient demonstrates bilateral flexion of the knees and trunk in order to help stabilize himself. The patient performed standing to seated transfer independently but with some safety concerns. Ambulation: The patient was able to ambulate with a cane and contact guard assist x1 for safety. The patient performed very poorly ascending stairs as he was not able to correctly chemical maker where to place his foot, making him a fall risk for going backward when ascending stairs. He required max cueing and also mod to max assist at times so that he did not fall backwards. We do need to continue to work on stairs as that is one of the activities that patient will need to perform daily. Strength: Bilateral lower extremity strength is 4/5. ASSESSMENT: The patient has fair to poor rehab potential due to his chronic alcoholism. Problem List: Generalized weakness Decreased endurance Decreased activity tolerance Poor balance Poor safety awareness at times Short-Term Goals: [facility]: Patient will be able to ambulate at least 200 feet with appropriate assistive device safely. Patient will be able to ascend and descent one flight of stairs with appropriate assistive device safely in a controlled manner. Patient will be able to perform all transfers safely and independently. Long-Term Goals: To be met following discharge from [facility]: Patient will most likely return back to his home in [place] and seek assistance with his chronic alcoholism as he is able to do so and as he so chooses. TREATMENT PLAN: Patient will be seen B.I.D during the week and one time per day over the weekend as a [facility] patient for general strengthening working on safety with transfers, improving endurance with ambulation, and ascending and descending stairs. INITIAL TREATMENT: Treatment today consisted of the [facility]. The patient was instructed in the NuStep for cardiovascular work. He did require min verbal cues for attention to task. Following that activity the patient was instructed in therapeutic exercises including sit to stand transfers with emphasis on safety followed by bilateral lower extremity strengthening activities with three pound weights on bilateral lower extremities with the patient performing alternating marching, alternating long arc quads, resisted hamstring curls, and resisted hip abduction. The patient was instructed on use of single point cane. The patient ambulated 100 feet with cane, contact guard assist x1 for safety to [facility]. Once in the stairwell the patient was instructed in ascending and descending a flight of stairs as he has multiple stairs in his apartment. The patient did state he has a handrail on each side of the stairs at his apartment so he was allowed to choose which handrail he wanted to use when ascending the stairs and used the single point cane in the opposite hand. The patient required anywhere from mod to max assist with stair activity as he had a tendency to step on the edge of the stairs, making him a high fall risk to fall backwards as he was ascending the stairs. He demonstrated very poor judgment on foot placement and demonstrated impulsivity at times as he would not have his foot steady before he would try to lift his other foot up to the next step. Following stair activity the patient was brought back to therapy to participate with occupational therapy. YOLI
--- NOTE | 2016-09-21 16:30 | PT.PROG ---
Progress Note Progress Note: S. Patient stated he would like to go for a walk. O. Patient descended the stairs from the 3rd floor then ambulated to the park ( where he ascended 12 stairs) and back approximately 1200+ feet. Patient descended the stairs from the 2rd floor to the therapy gym where he participated with OT then ascended the stairs to the 3rd floor and was left in his chair, Nursing was notified. A. Patient was able to ambulate full distance with 2 short seated rest breaks. Patient took frequent standing rest breaks however. he continues to struggle with balance and lost his balance and required mod assist to recover before falling. Patient tolerated ambulation fair this afternoon. Patient would continue to benefit from balance exercises and fall recovery techniques. P. Continue POC.
[2016-09-22] MEDS: HYDROcodone-APAP 7.5 MG-325 MG TABLET PO PRN ×3 (07:01→21:12)
[2016-09-22] MEDS: PANTOPRAZOLE 40 MG TABLET PO SCH (07:02)
--- NOTE | 2016-09-22 07:56 | PDOC(PROG) ---
Date and Time of Service: 09/22/2016 7:52 AM Interval History: Subjective No new complaint, I spoke yesterday with Dr. Rutledge about the patient changing his mind and he is okay with surgery and he prefers to have it here however per my discussion with Dr. Rutledge he wants the opinion of an ankle and foot surgeon to know the extent of surgery and I explained that to the patient. Objective : Data - Labs CBC and BMP: 09/19/16 16:30 09/19/16 16:30 Objective : Exam - General General Appearance: No Acute Distress, Cooperative - Head Head Exam: Normal Inspection, Atraumatic - Eye Eye Exam: Normal Appearance - ENT ENT Exam: Normal Exam - Neck Neck Exam: Normal Inspection - Respiratory Respiratory Exam: Clear to Auscultation - Bilaterally - Cardiovascular Cardiovascular Exam: RRR - GI/Abdominal GI/Abdominal Exam: Normal Bowel Sounds, Non Tender, Non Distended, Soft - Rectal Rectal Exam: Deferred - External Exam: Deferred - Extremities Additional Extremities Exam Details: Right foot status post metatarsal amputation, plantar ulceration of the right foot the site of the remaining of the first metatarsal, I don't think its changed from before. There is also an ulceration on the plantar surface of the left first toe. - Back Back Exam: Normal Inspection - Neurological Neurological Exam: Alert, Oriented x 3, CN II-XII Intact, Moves All Extremities Equally - Psychiatric Psychiatric Exam: Normal Affect Assessment and Plan - Patient Problems (1) Multiple rib fractures Current Visit: No Status: Acute Comment: Continue current pain medications Qualifiers: Encounter type: initial encounter Fracture type: closed Laterality : left Qualified Description: Closed fracture of multiple ribs of left side , initial encounter Qualifier Code(s): (S22.42XA) Multiple fractures of ribs, left side, initial encounter for closed fracture (2) Multiple falls Current Visit: No Status: Acute Comment: Continue PT and OT (3) Ulcer of right foot Current Visit: Yes Status: Acute Comment: I explained to the patient the recommendation of Dr. Rutledge, I think since the patient still here will do an MRI of his foot try to get him an appointment with the orthopedic physician Dr. Browne as suggested by Dr. Rutledge and will speak with the supportive employment case manager and see whether we can arrange for him to be evaluated there as an outpatient and comes back if he still here on [facility] when he gets his appointment (4) Chronic alcoholism Current Visit: No Status: Acute Comment: Continue multivitamins.
--- NOTE | 2016-09-22 08:20 | OT.PROG ---
Progress Note Progress Note: S: Client stated legs were wobbly after his long walk. Stated he was forgetting to move his feet during activity. O: Client participated in 20 minute OT session in therapy gym to increase standing balance and UE strength for daily occupation. Client used 8.8 lbs. on dangelo to increase shoulder strength; this included rows, /, add, and triceps strength x10 reps with bilateral UE. Ambulated with cane and CGA 15' to mat table. Required 1 minute breaks x3 to rest legs. Client required CGA to min A to remain standing during reaching activity and stumbled x2 secondary to impulsively. Client was able to stand for 5 minutes with CGA to increase standing balance. A: Client showed good progress with increase standing balance but needed min A at times to remain standing. Increased amount of breaks needed. P: Client will continue skilled OT services 2x a day for 1 wk to increase standing balance and UE needed for daily occupations. Recommend HEP to increase balance and strength after discharge.
[2016-09-22] MEDS: ChlordiazePOXIDE Cap 25 MG CAPSULE PO SCH ×3 (08:40→21:11)
[2016-09-22] MEDS: CELECOXIB 200 MG CAPSULE PO SCH ×2 (08:41→21:11)
[2016-09-22] MEDS: Thiamine Tab 100 MG TAB PO SCH (08:41)
[2016-09-22] MEDS: Multivitamin Tab 1 TAB PO SCH (08:41)
[2016-09-22] MEDS: FOLIC ACID 1 MG TABLET PO SCH (08:41)
--- NOTE | 2016-09-22 11:52 | OT AM DAY ---
Diagnosis : Weakness AM - Occupational Therapy S: The patient reports he had a pretty good weekend. His nurse reports that he did go for a walk yesterday throughout the hospital. He reports that his balance is starting to improve. O: The patient was able to change the dressing on the bottom of the patient' s foot with gauze and cleanser independently. He put a Band-aid over it. This is probably how he will take care of it at home. He states that more than likely he is going to get it amputated; he would like it done sooner than later if it absolutely needs to be done. Today the patient was able to dress lower extremities with contact guard assist for balance to min assist. The patient does get off balance at times. He states that he is able to keep his balance but he does lose his balance approximately 20% of the time when standing. The patient was able to walk down to therapy. He completed upper extremity strengthening activities including wall pulleys for shoulder extension, rows, biceps curls, and internal/external rotation x10 repetitions each with four kilograms. The patient completed a weekly schedule with positive coping mechanisms that he will try to implement when he gets home. Mondays he will to to the AA meeting. Wednesday he will go to the rec center to work on strengthening and cardio. Wednesday he will go to the library. he is going to work on meal planning and his grocery shopping. Wednesday he will go back to the rec center. Wednesday he would like to do his house cleaning and laundry. Wednesday he would like to go back to [place] and make a call to his kids who live out of state. A: The patient was a good participant today. He is still demonstrating balance difficulties which will affect his safety once he returns home. The patient is encouraged to stick to a plan and use positive coping mechanisms. P: Continue seeing patient BID during the week and one time per day over the weekend for upper extremity strengthening, ADLs, and overall functional mobility. YOLI
--- NOTE | 2016-09-22 13:01 | DI ---
MRI LOW EXTREMITY W/WO CN,09/22/2016 10:58 AM: Clinical History: Right foot ulcer. Previous Exam: None at this facility. Findings: Multiplanar MR images are obtained through the right foot both before and after the intravenous admin istration of gadolinium contrast, and demonstrate some marrow edema involving the mid right first met atarsal. This demonstrates enhancement. The other metatarsals demonstrate no edema nor enhancement. There is a small cystic area adjacent to the first metatarsal distally measuring 11 x 5 mm. The major vascular flow voids are unremarkable. Flexor and extensor tendons are also unremarkable. The plantar fascia is unremarkable as well. Impression: 1. Status post amputation through the mid tarsals with bone marrow edema and enhancement of the first metatarsal consistent with osteomyelitis.
--- NOTE | 2016-09-22 16:57 | PT.PROG ---
Progress Note Progress Note: S. Patient stated he would like to go to therapy this morning. O. Patient ambulated 175 feet to the therapy gym. Patient used the nu-step x 10 minutes then bicycle x 2 minutes. Patient performed exercises in the form of; box step ups with #3 box, total gym squats, hurdles all x 15 bilaterally, balance grid x 5. Patient ambulated 175 feet back to his room where he was left. A. Patient continues to struggle with balance. He was very fatigued after performing exercises. Patient frequently wonders around the halls alone and has met all goals at this time. P. Continue POC.
--- NOTE | 2016-09-22 17:04 | OT.PROG ---
Progress Note Progress Note: S: Pt. asked why he was standing on the foam board. Stated that his foot was feeling better than in morning session O: Pt. participated in 30 min OT session in therapy gym to increase standing balance and UE strength for safety and daily occupations. Pt. needed CGA to ambulate to gym and stumbled x2 secondary to impulsively. Needed min to mod A to remain standing on foam board during reaching activity x 10 min. Pt. used 8.8 lbs. on dangelo to increase shld rows, /, and adduction for daily occupations. He was able to stand for 10 min with CGA during strengthening activity. No rest breaks were needed. A: Pt. showed good progress with standing balance but needed mod A at times to remain standing. Fewer rest breaks were needed which showed good progress. Pt was cooperative and alert during treatment. P: Pt. will continue skilled OT services 2x/day for 1 wk to increase standing balance and UE strength for safety and daily occupations.
--- NOTE | 2016-09-22 17:05 | PT.PROG ---
Progress Note Progress Note: S. Patient stated that he would like to go for a walk. O. Patient ambulated around the hospital up to the emergency room approximately 1000 + feet. Patient ascended the stairs to the 3rd floor and was left in his room. A. Patient tolerated ambulation well, he continues to require CGA, he was able to ambulate with uneven surfaces, gravel, curbs, grass, and hills all with no issue. Patient has met all goals at this time. P. Continue POC.
[2016-09-22] MEDS ORDERED: LEVOFLOXACIN 500 MG TABLET PO ONE (18:53)
[2016-09-22] MEDS ORDERED: LEVOFLOXACIN 500 MG TABLET PO SCH (19:00)
[2016-09-22] MEDS ORDERED: DOCUSATE 100 MG CAPSULE PO PRN (20:26)
[2016-09-22] MEDS ORDERED: Senna Tab 8.6 MG TAB PO PRN (20:27)
[2016-09-22] MEDS ORDERED: ChlordiazePOXIDE Cap 25 MG CAPSULE ONE (21:08)
[2016-09-22] MEDS: metroNIDAZOLE Tab 500 MG TAB PO SCH (21:12)
[2016-09-23] MEDS: HYDROcodone-APAP 7.5 MG-325 MG TABLET PO PRN ×2 (01:13→07:02)
[2016-09-23] MEDS: PANTOPRAZOLE 40 MG TABLET PO SCH (06:51)
[2016-09-23 07:41] VITALS: RESP 18; TEMP 97.8
[2016-09-23] MEDS ORDERED: LEVOFLOXACIN 500 MG TABLET PO SCH (09:00)
[2016-09-23] MEDS ORDERED: ERGOCALCIFEROL 50,000 IU CAPSULE PO SCH (09:00)
[2016-09-23] MEDS: ChlordiazePOXIDE Cap 25 MG CAPSULE PO SCH (09:25)
[2016-09-23] MEDS: CELECOXIB 200 MG CAPSULE PO SCH (09:25)
[2016-09-23] MEDS: Multivitamin Tab 1 TAB PO SCH (09:25)
[2016-09-23] MEDS: Thiamine Tab 100 MG TAB PO SCH (09:26)
[2016-09-23] MEDS: FOLIC ACID 1 MG TABLET PO SCH (09:26)
[2016-09-23] MEDS: metroNIDAZOLE Tab 500 MG TAB PO SCH (09:27)
--- NOTE | 2016-09-23 09:42 | DCSUMMARY ---
Hospitalization Summary Admit Date: 09/18/16 Discharge Date: 09/23/16 Hospital Course: Discharge diagnoses 1. Alcoholism 2. Left rib fractures after a fall 3. Peripheral neuropathy 4. Chronic osteomyelitis of the first right metatarsal 5. History of transmetatarsal on the right 6. Vitamin D deficiency Hospital course This is a 55 years old male with medical history significant for history of alcoholism, peripheral neuropathy and history of chronic osteomyelitis who drinks about 1.75 L of vodka per day and was brought to the hospital after he fell down the stairs. He was brought to the hospital his alcohol level is more than [address] scans showed several left rib fractures. He was admitted to the hospital by Dr. Emanuel please see his note Patient was put on pain medication, multivitamins and he was started also on CIWA protocol, a few days after that admission his status was switched to swing bed status and continued physical therapy while he was here. I saw him later on during his hospital stay while he was on swing bed did notice the ulceration on the plantar aspect of the right foot he had also another ulceration which is smaller on the planter aspect of the first left toe. Because of the status of the ulceration of the right toe I spoke with Dr. Rutledge who saw the patient he discussed with him options including surgery but the patient when seen by Dr. Rutledge was not interested in surgery. This looked like a chronic infection. However he changed his mind and I spoke with Dr. Rutledge and DR Rutledge recommendation was that he see an ankle and foot surgeon for evaluation and will book him for outpatient appointment. I did do an MRI of the foot and it did show osteomyelitis. Patient was treated at one point time last year with the IV antibiotics however he discontinued that on his own, he was seen by infectious disease they gave him only 30 days of oral Keflex and he was suppose to follow up with them that was in June he never followed up with them. And because of his compliance issue I spoke with infectious disease and the decision was just treat him with oral antibiotics for now and he will follow-up with the his primary and with the foot surgeon on October 07. I did inform that if there is worsening pain or fever or drainage and he need to come back to the emergency department. He did have a vitamin D deficiency and he was given vitamin D and discharged and vitamin D. He said that he will quit drinking. On discussion with PT he reached the maximum that he can achieve so we discharged him. Laboratory Results 09/18/16 09/19/16 Range/Units 18:10 16:30 WBC 6.58 (4.8-10.8) 10^3/uL RBC 3.97 L (4.70-6.10) 10^6/uL Hgb 13.2 L (14.0-18.0) g/dL Hct 39.1 L (42.0-52.0) % MCV 98.5 H (80-90) FL MCH 33.2 H (27-31) PG MCHC 33.8 (33-37) g/dL RDW Std Deviation 44.9 (39-50) fL RDW Coeff of Durga 12.6 (11.5-14.5) % Plt Count 217 (140-350) 10*3/uL MPV 8.5 (7.4-12.2) FL Immature Gran % (Auto) 0.5 (0-5) % Neut % (Auto) 55.0 (50-80) % Lymph % (Auto) 26.0 (10-50) % [place] % (Auto) 14.7 (5-15) % Eos % (Auto) 3.5 (0-8) % Baso % (Auto) 0.3 (0-1) % Immature Gran # (Auto) 0.03 10*3/UL Neut # (Auto) 3.62 10*3/UL Lymph # (Auto) 1.71 10*3/uL [place] # (Auto) 0.97 H (0.3-0.8) 10*3/UL Eos # (Auto) 0.23 10*3/UL Baso # (Auto) 0.02 10*3/UL WBC Morphology Comment Normal morphology (NORM) Plt Morphology Comment Normal morphology (NORM) RBC Morph Comment Normal morphology (NORM) ESR 44 H (0-15) MM/HR Sodium 133 L (135-145) meq/L Potassium 3.9 (3.8-5.2) meq/L Chloride 99 (98-112) meq/L Carbon Dioxide 26 (23-33) meq/L Anion Gap 8 (5-20) BUN 11 (7-22) mg/dL Creatinine 0.8 (0.70-1.50) mg/dL Estimated GFR > 60 (>60 ml/min/1.73m(2)) BUN/Creatinine Ratio 13.75 (6-20) Glucose 101 (78-110) mg/dL Calculated Osmolality 274.0 (267-292) mOsm/kg Calcium 8.5 L (8.7-10.7) mg/dL Total Bilirubin 0.9 (0.3-1.2) mg/dL AST 50 (21-57) IU/L ALT 49 (21-72) IU/L Alkaline Phosphatase 127 H (38-126) IU/L Troponin I < 0.012 (< 0.040) ng/mL C-Reactive Protein 6.4 H (0.0-0.9) mg/dL Total Protein 7.3 (6.1-8.0) g/dL Albumin 3.8 (3.5-4.8) g/dL Globulin 3.6 (2.50-4.10) g/dL Albumin/Globulin Ratio 1.00 L (1.3-2.0) mg/g Discharge instruction on diet regular Activity as started Medications Home Medications Medication Instructions Recorded Confirmed Type Celecoxib [Celebrex] 200 mg PO BID #20 capsule 09/18/16 09/21/16 Rx Chlordiazepoxide HCl [Librium] 25 mg PO BID #20 capsule 09/18/16 09/21/16 Rx Cyclobenzaprine HCl [Flexeril] 10 mg PO TID PRN #20 tab 09/18/16 09/21/16 Rx Folic Acid 1 mg PO DAILY #20 tab 09/18/16 09/21/16 Rx Multivitamin Tab [Thera Tab] 1 tab PO DAILY #14 tab 09/18/16 09/21/16 Rx Pantoprazole Sodium [Protonix] 40 mg PO AC BK #30 tab 09/18/16 09/21/16 Rx Calcium Carbonate/Vitamin D3 1 each PO BID #60 tablet 09/23/16 Rx [Calcium 500 With Vit D Tab] HYDROcodone/APAP 7.5/325 Tab 1 - 2 tab PO Q4H PRN #14 tab 09/23/16 Rx [[place] 7.5/325 Tab] Levofloxacin [Levaquin] 500 mg PO 1900 #30 tab 09/23/16 Rx metroNIDAZOLE Tab [Flagyl Tab] 500 mg PO TID #90 tab 09/23/16 Rx Follow-up with PCP in 1-2 weeks, follow-up with the orthopedic as scheduled next month. Condition at discharge was stable for discharge Exam - Vitals Vital Signs: Vital Signs Temperature 97.8 F Temperature Source Temporal Artery Scan Pulse Rate [Apical] 88 Pulse Rate [Pulse Oximeter] 94 Respiratory Rate 18 Blood Pressure [Left Arm] 126/65 Pulse Ox 92 Oxygen Delivery Method Room Air Height 6 ft Weight 177 lb 15.984 oz - General General Appearance: POSITIVE: No Acute Distress, Cooperative - Head Head Exam: POSITIVE: Normal Inspection, Atraumatic - Eye Eye Exam: POSITIVE: Normal Appearance - ENT ENT Exam: POSITIVE: Normal Exam - Neck Neck Exam: POSITIVE: Normal Inspection - Respiratory Respiratory Exam: POSITIVE: Clear to Auscultation - Bilaterally - Cardiovascular Cardiovascular Exam: POSITIVE: RRR - GI/Abdominal GI/Abdominal Exam: POSITIVE: Normal Bowel Sounds, Non Tender, Non Distended, Soft - Rectal Rectal Exam: POSITIVE: Deferred - External Exam: POSITIVE: Deferred - Extremities Additional Extremities Exam Details: Chronic ulceration on the plantar aspect of the right foot, chronic ulceration on the plantar aspect of the first left toe. Patient Problems - Patient Problem List (1) Multiple rib fractures Status: Acute Qualifiers: Encounter type: initial encounter Fracture type: closed Laterality : left Qualified Description: Closed fracture of multiple ribs of left side , initial encounter Qualifier Code(s): (S22.42XA) Multiple fractures of ribs, left side, initial encounter for closed fracture (2) Multiple falls Status: Acute (3) Ulcer of right foot Status: Acute (4) Chronic alcoholism Status: Acute
--- NOTE | 2016-09-23 10:12 | PT.PROG ---
Progress Note Progress Note: S. Patient stated that he is feeling good this morning, he thinks he could go home. O. Patient descended the stairs from the 3rd floor then used the nu-step x 5 minutes then performed squats on the total gym x 20. balance grid x 3, then ascended the stairs to the 3rd floor where he was left in his room. A. Patient continues to be impulsive however is able to perform all tasks, Patient has a weekly plan to attend positive activities to help stay on task. Patient has met all goals at this time. P. continue POC until discharged.
--- NOTE | 2016-09-23 14:45 | OT AM DAY ---
Diagnosis : Weakness AM - Occupational Therapy S: The patient reports he is having a down and out morning. They are still contemplating on amputating his foot. He states he would like to just get it done sooner than later but he is waiting on medical care and seeing what will be approved and what doctor will do the surgery. O: Throughout the session today the patient stated he wasn't feeling as good as normal. He stated his foot also hurt because the doctor was poking and prodding on it prior to the therapy session. Today the patient demonstrated being able to ambulate throughout room with contact guard assist. He still demonstrates some impulsivity. The patient was able to dress lower extremities independently. The patient was able to ambulate down to therapy with contact guard assist. Downstairs in therapy he completed functional reaching activities while on the [employer]. We worked on upper extremity strengthening with wall pulleys in all panes and ranges, arm bike both forward and backward x4 minutes each, and hand strengthening with power web and digi-flex x20 repetitions each. A: The patient is still demonstrating some impulsivity but overall is making some good gains. He is able to dress self as long as he is standing by chair but his balance is still somewhat poor. P: Continue seeing patient BID during the week and one time per day over the weekend for upper extremity strengthening, ADLs, and overall functional mobility. YOLI
--- NOTE | 2016-09-23 17:02 | OT.PROG ---
Progress Note Progress Note: S: Pt. stated that he was feeling better than yesterday. Pt. had no questions or concerns about d/c. Pt. stated he was going to try his best to stick to his weekly positive coping strategy schedule. O: Pt. participated in 20 min OT session in therapy gym to increase standing balance and UE strength for safety and daily occupations. Ambulated with CGA to gym. Pt. used arm bike to increase strength in B shld x 5 min. Pt. used 8.8lbs. on pulleys to increase shld row, /, and add for daily occupations. Needed min to mod A to remain standing during obstacle course. x 10 leg presses to increase B LE strength needed for safety. Pt. was informed about possible discharge today. A: Pt. was alert during treatment. He struggled with obstacle course, needed min A to remain standing. P: Pt. will be discharge home at the end of the day. Recommend following daily schedule with therapy as needed.
== END 2016-09-23 10:30 | disposition home or self-care (01) | DRG 999 ==
LOC: MED/SURG 14:08
PROVIDERS: ADMIT Family Medicine; ATTEND Family Medicine
DX: F10.20 Alcohol dependence, uncomplicated (principal); M86.671 Other chronic osteomyelitis, right ankle and foot; S22.42XA Multiple fractures of ribs, left side, initial encounter for closed fracture; W10.9XXA Fall (on) (from) unspecified stairs and steps, initial encounter; G62.9 Polyneuropathy, unspecified; E55.9 Vitamin D deficiency, unspecified
CPT/HCPCS: 36415; 73630; 73720; 80053; 84484; 85025; 85652; 86140; 87040; 93005; 93010; 94761; 97110; 97112; 97161; 97166; 97530; 97535; A9579

== ENCOUNTER 2016-10-02 21:37 | Inpatient (IN) | payer SELFPAY ==
[2016-10-02] MEDS ORDERED: ONDANSETRON 4 MG/2 ML VIAL IVP ONE (22:02)
[2016-10-02] MEDS ORDERED: Sodium Chloride 0.9% 1,000 ML PRIMARY IV ONE (22:02)
--- NOTE | 2016-10-02 22:09 | PDOC ---
Gen Adult / Medical Screen HPI - General Chief Complaint: General Medical Stated Complaint: "I WANT TO DETOX AND HAVE MY FOOT LOOKED AT" Date Seen by Provider: 10/02/16 Time Seen by Provider: 22:04 Source: POSITIVE: Patient Exam Limitations: POSITIVE: Intoxication Nurse's Notes Reviewed & Considered: Yes - Indicators Temperature Between 95 and 101 Degrees: Yes Respirations Between 12 and 20: Yes Blood Pressure Between 100-165 (sys) and 60-100 ([place]): Yes Pulse Range Between 60-105 (100 for age > 60 years): No (108) Severe Pain (Greater than 5/10 Reported): No Chest or Abdominal Pain: No Inability to Walk: No Pt Reports Active High Risk Cond. (TB/Hepatitis/HIV/Chemo): No Abnormal Mental Status: Yes (intoxication) - History of Present Illness Initial Comments: This is an intoxicated 55-year-old male who comes in today with complaints of wanting to detox and to have his feet examined. Patient has been drinking today he states approximately a sixpack and a pint of whiskey. He drinks heavily every day. In addition he is complaining of bilateral foot pain. He has open pressure ulcers on the ball of his right foot with amputation of all toes on his right foot, and he has a open pressure wound on the plantar surface of the great toe of the left foot. Further review of systems is unavailable because the patient's intoxicated state. He is unsure who his physician EMS. States he is scheduled to see some doctor in [place] next month about his foot. Patient was recently hospitalized here at [facility] and discharged on the of this month. Body Location Affected: REPORTS: Lower Extremity (L), Lower Extremity (R) Timing: REPORTS: Unknown Duration: Unknown Similar Symptoms Previously: Yes Recent Care Received: REPORTS: Treated by MD, Hospitalized Any Prior Injuries Related to Current Complaint?: Yes (amputation of the toes the right foot) - Patient Home Medications Home Medications: Home Medications Celecoxib [Celebrex] 200 mg PO BID #20 capsule 09/18/16 Chlordiazepoxide HCl [Librium] 25 mg PO BID #20 capsule 09/18/16 Cyclobenzaprine HCl [Flexeril] 10 mg PO TID PRN #20 tab 09/18/16 Folic Acid 1 mg PO DAILY #20 tab 09/18/16 Multivitamin Tab [Thera Tab] 1 tab PO DAILY #14 tab 09/18/16 Pantoprazole Sodium [Protonix] 40 mg PO AC BK #30 tab 09/18/16 Calcium Carbonate/Vitamin D3 [Calcium 500 With Vit D Tab] 1 each PO BID #60 tablet 09/23/16 HYDROcodone/APAP 7.5/325 Tab [[place] 7.5/325 Tab] 1 - 2 tab PO Q4H PRN #14 tab 09/23/16 Levofloxacin [Levaquin] 500 mg PO 1900 #30 tab 09/23/16 metroNIDAZOLE Tab [Flagyl Tab] 500 mg PO TID #90 tab 09/23/16 - Patient Allergies Allergies/Adverse Reactions: Allergies Allergy/AdvReac Type Severity Reaction Status Date / Time Sulfa (Sulfonamide AdvReac DIFFICULTY Verified 10/02/16 21:51 Antibiotics) SWALLOWING Past Medical History - heen HEENT History: Denies History Cardiovascular History: Hypertension Respiratory History: Other (please comment) Additional Respiratory History: Heavy smoker Gastrointestinal History: GI Bleed, Colitis, Other (please comment) Additional Gastrointestinal History: Hx of GI bleeds with heavy times of drinking. 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 Osteomyolitis in left great toe, consult for possible amputation. Neurological History: Other (please comment) Additional Neurological History: Hx of seizures with detox. Blood Disorders: Denies History Psychiatric History: Depression, Anxiety Disorders, Substance Abuse History of Sexually Transmitted Diseases: No Cancer History: Skin In Past Year Been Physically Harmed or Verbally Threatened: No History of MDRO: Yes History of Other Communicable Diseases: No Tobacco Use: Current Every Day Smoker Alcohol Use: Heavy Type of alcohol normally used: Beer, Hard Liquor How much alcohol do you normally drink a day?: 1pint daily Substance Use Type: None, Other (please comment) Previous Surgical History: Yes Type / Date of Surgery: amputation of all toes, right foot Significant Family History: No pertinent family hx ROS - Limitations ROS Limitations: Intoxication (Because of the patient's intoxicated state further review of systems is unavailable.) Gen Adult/Medical Screen Exam - General Appearance General Appearance: POSITIVE: Alert, Moderate Distress, Other (Highly intoxicated) - HEENT HEENT: POSITIVE: Head Inspection Nml, Eyes Inspection Nml, Ears Inspection Nml, Nose Inspection Nml, Oral/Dental Inspect. Nml, Pharynx Inspect. Nml, PERRL, EOMI - Pupils Pupil Size: 4 mm: Bilateral (nystagmus present) - Neck Neck: POSITIVE: Normal Inspection, Thyroid Normal - Respiratory Respiratory: POSITIVE: No Respiratory Distress, Breath Sounds Normal, Chest Non- Tender - Cardiovascular Cardiovascular: POSITIVE: Regular Rate & Rhythm, No Murmur, No Gallop, PMI Normal - Abdomen Abdomen: Soft: (All Quadrants), Normal Bowel Sounds: (All Quadrants), Denies Tenderness: (All Quadrants) - Back Back: POSITIVE: Normal Inspection - Neurological / Psychological Mental Status: POSITIVE: Tearful, Other (Intoxicated) Orientation: POSITIVE: Cannot Determine - Skin Skin: POSITIVE: Erythema (Erythema of his bilateral feet with open draining wounds on the plantar aspect of the left great toe as well as the ball of the right foot at the end of metacarpals.) - Extremities Extremity: Pelvis Stable: (All Extremities) Additional Extremities Details: Positive palpable pulses on the dorsalis pedis bilaterally, loss of hair is noted on his lower extremities from the ankle down, he has amputation of his right toes, open draining wound over the metacarpal head right foot second and third toes, open draining pressure wound on the plantar aspect of the great toe distal phalangeal. Gen Adlt/Medical Scrn Progress - Results Reviewed by me Xrays/CTs/US Reviewed by me: Yes Discussed with Radiologist: Yes Lab Results Reviewed: Yes Lab Results:: Laboratory Results 10/02/16 10/03/16 Range/Units 22:20 00:28 WBC 8.10 (4.8-10.8) 10^3/uL RBC 3.98 L (4.70-6.10) 10^6/uL Hgb 12.9 L (14.0-18.0) g/dL Hct 38.2 L (42.0-52.0) % MCV 96.0 H (80-90) FL MCH 32.4 H (27-31) PG MCHC 33.8 (33-37) g/dL RDW Std Deviation 44.1 (39-50) fL RDW Coeff of Durga 13.2 (11.5-14.5) % Plt Count 386 H (140-350) 10*3/uL MPV 7.8 (7.4-12.2) FL Immature Gran % (Auto) 0.1 (0-5) % Neut % (Auto) 69.0 (50-80) % Lymph % (Auto) 20.6 (10-50) % [place] % (Auto) 9.0 (5-15) % Eos % (Auto) 0.7 (0-8) % Baso % (Auto) 0.6 (0-1) % Immature Gran # (Auto) 0.01 10*3/UL Neut # (Auto) 5.58 10*3/UL Lymph # (Auto) 1.67 10*3/uL [place] # (Auto) 0.73 (0.3-0.8) 10*3/UL Eos # (Auto) 0.06 10*3/UL Baso # (Auto) 0.05 10*3/UL WBC Morphology Comment Normal morphology (NORM) Plt Morphology Comment Normal morphology (NORM) RBC Morph Comment Normal morphology (NORM) Sodium 146 H (135-145) meq/L Potassium 4.1 (3.8-5.2) meq/L Chloride 106 (98-112) meq/L Carbon Dioxide 24 (23-33) meq/L Anion Gap 16 (5-20) BUN 8 (7-22) mg/dL Creatinine 0.6 L (0.70-1.50) mg/dL Estimated GFR > 60 (>60 ml/min/1.73m(2)) BUN/Creatinine Ratio 13.33 (6-20) Glucose 97 (78-110) mg/dL Calculated Osmolality 299.0 H (267-292) mOsm/kg Lactic Acid 3.7 H (0.70-2.10) MMOL/L Calcium 8.0 L (8.7-10.7) mg/dL Magnesium 2.1 (1.6-2.4) mg/dL Total Bilirubin 0.9 (0.3-1.2) mg/dL AST 87 H (21-57) IU/L ALT 31 (21-72) IU/L Alkaline Phosphatase 103 (38-126) IU/L C-Reactive Protein 3.1 H (0.0-0.9) mg/dL Total Protein 7.4 (6.1-8.0) g/dL Albumin 3.7 (3.5-4.8) g/dL Globulin 3.6 (2.50-4.10) g/dL Albumin/Globulin Ratio 1.00 L (1.3-2.0) mg/g TSH 0.966 (0.2700-4.2000) uIU/mL Ur Collection Type Voided specimen U Specif Grav (Refrac) 1.021 Urine Opiates Screen Negative (NEG) Ur Buprenorphine Negative (NEG) Ur Oxycodone Screen Negative (NEG) Urine Methadone Screen Negative (NEG) Ur Propoxyphene Screen Negative (NEG) Barbiturate Screen Negative (NEG) U Tricyclic Antidepress Negative (NEG) Phencyclidine Screen Negative (NEG) Amphetamines Screen Negative (NEG) U Methamphetamines Scrn Negative (NEG) Benzodiazepines Screen Positive H (NEG) Cocaine Screen Negative (NEG) U Marijuana (THC) Screen Negative (NEG) Serum Alcohol 290 H (0-10) mg/dL - Patient's Progress Pain Medication Addressed: POSITIVE: Yes Re-Examine Time: 00:57 Status: POSITIVE: Improved MDM / ED Course: Patient was examined, an IV started, blood drawn and sent to lab for studies, CT examination of his lower extremities bilaterally was obtained. Patient received a liter of normal saline, Toradol, Zofran. Findings: CBC shows anemia with hemoglobin of just over 12, white count is normal at 8. Platelets are elevated. Comprehensive metabolic panel shows sodium of 146. AST of 87. Blood alcohol is 290. Urine drug screen is positive for benzodiazepines. CT scan of his bilateral lower extremities shows osteomyelitis of his right foot and decreased tibial signal in his bilateral lower extremities. Assessment: #1 acute alcohol intoxication, #2 osteomyelitis, #3 noncompliance with continued alcohol abuse. Plan: Admission for alcohol detox. - Consult Consult (If Yes, Name of Consulting MD & Time Called): Yes (Dr. Alexander) Consulting MD will see pt:: POSITIVE: [facility] [place] Admit Counseled: POSITIVE: Patient, RE: Lab Results, RE: Radiology Results, RE: DX Patient Care Time - Estimated PCT Patient Care Time (In Minutes): 45 Vital Signs - Recent Vital Signs Vital Signs: Vital Signs (Last 8 hours) Temp Pulse Resp BP BP BP BP 10/02/16 22:47 132/95 153/82 123/71 147/85 10/02/16 22:01 99.1 F 108 H 18 127/77 Pulse Ox 10/02/16 22:47 10/02/16 22:01 96 - VS Reviewed Vital Signs Reviewed: Yes Discharge Clinical Impression: Chronic osteomyelitis of foot, Acute alcohol intoxication Discharge Disposition: Admit to Inpatient Condition: Stable Follow Up With: NONE,NONE [Primary Care Provider] - Date Decision to Admit to Inpatient: 10/03/16 Time Decision to Admit to Inpatient: 00:56
[2016-10-02 22:36] LABS: BASOPHILS # (AUTO) 0.05 10*3/UL; BASOPHILS % (AUTO) 0.6 % (0-1); EOSINOPHILS # (AUTO) 0.06 10*3/UL; EOSINOPHILS % (AUTO) 0.7 % (0-8); HEMATOCRIT 38.2 % (42.0-52.0); HEMOGLOBIN 12.9 g/dL (14.0-18.0); LYMPHOCYTES # (AUTO) 1.67 10*3/uL; MEAN CORPUSCULAR HEMOGLOBIN 32.4 PG (27-31); MEAN CORPUSCULAR HGB CONC 33.8 g/dL (33-37); MEAN PLATELET VOLUME 7.8 FL (7.4-12.2); MONOCYTES # (AUTO) 0.73 10*3/UL (0.3-0.8); NEUTROPHILS # (AUTO) 5.58 10*3/UL; RED BLOOD COUNT 3.98 10^6/uL (4.70-6.10)
[2016-10-02] MEDS ORDERED: Sodium Chloride 0.9% 1,000 ML, Magnesium Sulfate 2gm (Premix) 50 ML with Multivitamin I... IV ONE ×5 (22:37)
[2016-10-02 22:38] LABS: PLATELET MORPHOLOGY COMMENT NORMAL MORPHOLOGY (NORM); RBC MORPHOLOGY COMMENT NORMAL MORPHOLOGY (NORM); WBC MORPHOLOGY COMMENT NORMAL MORPHOLOGY (NORM)
[2016-10-02 22:46] LABS: BLOOD UREA NITROGEN 8 mg/dL (7-22); BUN/CREATININE RATIO 13.33 (6-20); EST GLOMERULAR FILTRATION > 60 (>60 ml/min/1.73m(2)); MAGNESIUM 2.1 mg/dL (1.6-2.4); SERUM ALBUMIN 3.7 g/dL (3.5-4.8)
[2016-10-02] MEDS ORDERED: KETOROLAC 30 MG/1 ML VIAL IVP ONE (22:51)
--- NOTE | 2016-10-03 00:04 | DI ---
HISTORY: Evaluate for open wounds bilateral feet. Pain. Check for osteomyelitis. TECHNIQUE: Contiguous axial images of the lower extremity were obtained and submitted for interpreta tion. FINDINGS: The patient is status post amputation of the right toes from the distal shaft of the metat arsals. There is evidence of soft tissue edema and periosteal reaction of the first metatarsal stump . Decreased density is seen in the subcortical region of the bilateral anterior talus, right greater than left. IMPRESSION: 1. Status post amputation of the right toes with soft tissue edema as well as periosteal reaction in the first metatarsal stump. The findings can be seen in osteomyelitis. 2. Decreased density in the subcortical region of bilateral anterior talus could be related to reacti ve bone marrow edema.
[2016-10-03 00:28] LABS: URINE SAMPLE TYPE VOIDED SPECIMEN; URINE SPECIFIC GRAVITY - MAN 1.021
[2016-10-03 00:30] LABS: AMPHETAMINE SCREEN NEGATIVE (NEG); CANNABINOID SCREEN,URINE NEGATIVE (NEG); COCAINE SCREEN NEGATIVE (NEG); METHADONE URINE SCREEN NEGATIVE (NEG); METHAMPHETAMINES SCREEN,URINE NEGATIVE (NEG); OPIATE SCREEN,URINE NEGATIVE (NEG)
[2016-10-03] MEDS ORDERED: MAG HYDROX/AL HYDROX/SIMETH 30 ML SUSP PO PRN (01:15)
[2016-10-03] MEDS ORDERED: ONDANSETRON 4 MG/2 ML VIAL IV PRN (01:15)
[2016-10-03] MEDS ORDERED: LIDOCAINE W/ SODIUM BICARB 0.5 ML SYR SUBD PRN (01:15)
[2016-10-03] MEDS ORDERED: Loperamide Tab 2 MG TABLET PO PRN (01:15)
[2016-10-03] MEDS ORDERED: Sodium Chloride 0.9% 1,000 ML PRIMARY IV ONE (01:15)
[2016-10-03] MEDS ORDERED: MAGNESIUM 400 MG/5 ML - 30 ML (MILK OF MAGNESIA) PO PRN (01:15)
[2016-10-03] MEDS ORDERED: NORMAL SALINE 10 ML SYRINGE FLUSH IVP PRN (01:15)
[2016-10-03] MEDS: LORazepam Inj(ETOH withdrawal) 2 MG/ML VIAL IVP PRN ×2 (01:54→15:34)
[2016-10-03] MEDS: Ertapenem Inj 1 GM in Sodium Chloride 0.9% 100 ML IV SCH (01:55)
[2016-10-03] MEDS: Sodium Chloride 0.9% 1,000 ML PRIMARY IV SCH ×2 (07:37→16:14)
--- NOTE | 2016-10-03 07:37 | PDOC ---
History and Physical - History of Present Illness Date and Time of Service: 10/03/2016 7:30 AM Chief Complaint: Wanted detoxification and reexamination of his feet ulcers History of Present Illness: This is a 55 years old male with medical history significant for history of alcoholism, peripheral neuropathy, history of chronic osteomyelitis of the metatarsal of his right foot who was recently discharged from our hospital on the he was admitted then after a fall a result of alcoholism, he had then some alcohol withdrawal and he had left rib fractures, regarding the ulcers we did consult Dr. Rutledge who suggested that he follow-up with a different orthopedic for a second opinion we did discuss his case with infectious disease and because of the issue of noncompliance and him having had a PICC line and removed it on his own before we decided to treat him orally, he said he is been drinking since he was discharged from the hospital he is been drinking a fifth of bourbon a day last time he had a drink was 6 PM yesterday he said he's been taking some of his antibiotics that I prescribed when he was discharged from the hospital but he was not clear on how many he was missing, he came in requesting detoxification and reexamination of his feet. In the ER his alcohol level was 290 he was given fluids and he was admitted. Today he was sleepy but arousable denying complaint, he claims that he's will quit. He has some constipation. He has some pain on the right shoulder but he doesn't remember having a fall. No other symptoms. Denied the benzodiazepine usage Past Medical History Medical History: 1. Chronic alcoholism. 2. Peripheral neuropathy, probably related to alcohol. 3. Tobacco abuse. 4. Chronic ulcers in feet with chronic osteomyelitis proven by MRI scan. 5. Recent the left rib fractures after a fall Surgical History: 1. Appendectomy. 2. Transmetatarsal amputation Pertinent Family History: Significant for heart disease and diabetes in his father. He states his mother is fairly healthy at 82 years Tobacco Use: Current Every Day Smoker Substance Use Type: None, Other (please comment) Alcohol Use: Heavy Medication / Allergies Home Medications: Home Medications Medication Instructions Recorded Confirmed Type Celecoxib [Celebrex] 200 mg PO BID #20 capsule 09/18/16 10/02/16 Rx Chlordiazepoxide HCl [Librium] 25 mg PO BID #20 capsule 09/18/16 10/02/16 Rx Cyclobenzaprine HCl [Flexeril] 10 mg PO TID PRN #20 tab 09/18/16 10/02/16 Rx Folic Acid 1 mg PO DAILY #20 tab 09/18/16 10/02/16 Rx Multivitamin Tab [Thera Tab] 1 tab PO DAILY #14 tab 09/18/16 10/02/16 Rx Pantoprazole Sodium [Protonix] 40 mg PO AC BK #30 tab 09/18/16 10/02/16 Rx Calcium Carbonate/Vitamin D3 1 each PO BID #60 tablet 09/23/16 10/02/16 Rx [Calcium 500 With Vit D Tab] HYDROcodone/APAP 7.5/325 Tab 1 - 2 tab PO Q4H PRN #14 tab 09/23/16 10/02/16 Rx [[place] 7.5/325 Tab] Levofloxacin [Levaquin] 500 mg PO 1900 #30 tab 09/23/16 10/02/16 Rx metroNIDAZOLE Tab [Flagyl Tab] 500 mg PO TID #90 tab 09/23/16 10/02/16 Rx Allergies/Adverse Reactions: Allergies Allergy/AdvReac Type Severity Reaction Status Date / Time Sulfa (Sulfonamide AdvReac DIFFICULTY Verified 10/02/16 21:51 Antibiotics) SWALLOWING Review of Systems - Review of Systems All Systems: Reviewed & No Additional Complaints Except as Stated Exam - Vitals Vital Signs: Vital Signs Temperature 98.7 F Temperature Source Oral Pulse Rate [Pulse Oximeter] 93 Pulse Rate 93 Respiratory Rate 13 Blood Pressure [Left Arm] 111/79 Blood Pressure 136/88 Pulse Ox 95 Oxygen Flow Rate 1L Oxygen Delivery Method Room Air Height 6 ft Weight 180 lb 11.2 oz - General General Appearance: POSITIVE: No Acute Distress, Cooperative - Head Head Exam: POSITIVE: Normal Inspection, Atraumatic - Eye Eye Exam: POSITIVE: Normal Appearance - ENT ENT Exam: POSITIVE: Normal Exam - Neck Neck Exam: POSITIVE: Normal Inspection - Respiratory Respiratory Exam: POSITIVE: Clear to Auscultation - Bilaterally - Cardiovascular Cardiovascular Exam: POSITIVE: RRR - GI/Abdominal GI/Abdominal Exam: POSITIVE: Normal Bowel Sounds, Non Tender, Non Distended, Soft - Rectal Rectal Exam: POSITIVE: Deferred - External Exam: POSITIVE: Deferred - Extremities Additional Extremities Exam Details: A chronic left big toe ulcer on the plantar surface noted looks dry. There is trans-metatarsal amputation on the right and there is a chronic ulcer on the remaining first metatarsal on the plantar aspect. Some drainage. Looks chronic. A bruise on the right shoulder noted - Back Back Exam: POSITIVE: Normal Inspection - Neurological Neurological Exam: POSITIVE: Alert, Oriented x 3, CN II-XII Intact - Psychiatric Psychiatric Exam: POSITIVE: Normal Affect - Integumentary Additional Integumentary Exam Details: Bruise noted on the right shoulder Results - Labs CBC and BMP: 10/02/16 22:20 10/02/16 22:20 - Imaging Status: Report Reviewed by Me (CT of the lower extremity shows amputation of the right toes from the distal shaft of metatarsal, there is soft tissue edema and the periosteal reaction of the first metatarsal stump can be seen in osteomyelitis. Decreased density in the subcortical region of bilateral anterior talus process can be seen in reactive bone marrow edema right greater than left) Assessment and Plan - Patient Problems (1) Acute alcohol intoxication Current Visit: Yes Status: Acute Comment: Continue with fluid, watch for alcohol withdrawal, he is on CIWA protocol. He received multivitamins continue with multivitamins. (2) Chronic osteomyelitis of foot Current Visit: Yes Status: Acute Comment: We did put him on Invanz will continue with Invanz. Will speak with the [facility] who are manager of international for Dr. Rutledge. And see their opinion. I did tell him with his current intoxication and potential withdrawal they will probably defer surgery for now. (3) Right shoulder pain Current Visit: Yes Status: Acute Comment: There is a bruise on the right shoulder there is no restriction of movement, he doesn't remember falling but likely had a fall will do x-rays of the right shoulder.
[2016-10-03 09:00] LABS: BASOPHILS # (AUTO) 0.03 10*3/UL; BASOPHILS % (AUTO) 0.5 % (0-1); EOSINOPHILS # (AUTO) 0.16 10*3/UL; EOSINOPHILS % (AUTO) 2.6 % (0-8); HEMOGLOBIN 12.2 g/dL (14.0-18.0); LYMPHOCYTES # (AUTO) 1.91 10*3/uL; MEAN CORPUSCULAR HEMOGLOBIN 32.9 PG (27-31); MEAN CORPUSCULAR HGB CONC 33.9 g/dL (33-37); MEAN PLATELET VOLUME 7.5 FL (7.4-12.2); MONOCYTES # (AUTO) 0.55 10*3/UL (0.3-0.8); MONOCYTES % (AUTO) 8.8 % (5-15); NEUTROPHILS # (AUTO) 3.61 10*3/UL; NEUTROPHILS % (AUTO) 57.4 % (50-80); RED BLOOD COUNT 3.71 10^6/uL (4.70-6.10)
[2016-10-03 09:04] LABS: PLATELET MORPHOLOGY COMMENT NORMAL MORPHOLOGY (NORM); RBC MORPHOLOGY COMMENT NORMAL MORPHOLOGY (NORM); WBC MORPHOLOGY COMMENT NORMAL MORPHOLOGY (NORM)
[2016-10-03 09:09] LABS: BLOOD UREA NITROGEN 6 mg/dL (7-22); CALCIUM 7.5 mg/dL (8.7-10.7); EST GLOMERULAR FILTRATION > 60 (>60 ml/min/1.73m(2)); SERUM ALBUMIN 3.3 g/dL (3.5-4.8)
[2016-10-03] MEDS ORDERED: POTASSIUM CHLORIDE 20 MEQ TAB PO SCH (09:15)
[2016-10-03] MEDS: FOLIC ACID 1 MG TABLET PO SCH (09:33)
[2016-10-03] MEDS: MAGNESIUM OXIDE 400 MG TABLET PO SCH ×2 (09:33→21:37)
[2016-10-03] MEDS: Calcium/Vit D 600mg/400u Tab 1 TAB TABLET PO SCH ×2 (09:33→21:37)
[2016-10-03] MEDS: Thiamine Tab 100 MG TAB PO SCH (09:33)
[2016-10-03] MEDS: DOCUSATE 100 MG CAPSULE PO SCH ×2 (09:33→21:37)
--- NOTE | 2016-10-03 09:35 | DI ---
HISTORY: Probable fall at least one week ago. Patient has poor recall. Pain and bruising over acro mion. FINDINGS: Examination reveals an oblique, slightly comminuted and impacted fracture of the distal e nd of the right clavicle. There is no significant displacement. IMPRESSION: 1. Oblique, slightly commminuted and impacted distal right clavicle fracture. NOTIFICATION: The above findings were phoned to Pretty Levi in the ER Department on 10/03/2016 at 1 1:42am EST.
[2016-10-03] MEDS: oxyCODONE IR Tab 5 MG TAB PO PRN ×3 (11:50→21:37)
[2016-10-03] MEDS ORDERED: ChlordiazePOXIDE Cap 25 MG CAPSULE PO SCH (13:00)
[2016-10-03] MEDS: ChlordiazePOXIDE Cap 25 MG CAPSULE PO SCH ×2 (15:19→21:37)
[2016-10-04] MEDS: Sodium Chloride 0.9% 1,000 ML PRIMARY IV SCH ×2 (00:02→11:57)
[2016-10-04] MEDS: Ertapenem Inj 1 GM in Sodium Chloride 0.9% 100 ML IV SCH (00:28)
[2016-10-04] MEDS: oxyCODONE IR Tab 5 MG TAB PO PRN ×3 (04:09→20:49)
[2016-10-04 06:13] LABS: BLOOD UREA NITROGEN 4 mg/dL (7-22); CALCIUM 7.8 mg/dL (8.7-10.7); EST GLOMERULAR FILTRATION > 60 (>60 ml/min/1.73m(2)); SERUM ALBUMIN 2.8 g/dL (3.5-4.8)
[2016-10-04] MEDS: PANTOPRAZOLE 40 MG TABLET PO SCH (08:00)
--- NOTE | 2016-10-04 08:10 | PDOC(PROG) ---
Date and Time of Service: 10/04/2016 8:07 AM Interval History: Subjective Patient denying new symptoms,He is denying pain in the foot. No vomiting. He had trouble urinating this morning and had to have a straight catheter but then he was able to urinate after the straight catheter. Objective : Data - Labs CBC and BMP: 10/03/16 08:55 10/04/16 05:22 Labs - Last 24 Hours: Laboratory Results 10/03/16 10/04/16 Range/Units 08:55 05:22 WBC 6.27 (4.8-10.8) 10^3/uL RBC 3.71 L (4.70-6.10) 10^6/uL Hgb 12.2 L (14.0-18.0) g/dL Hct 36.0 L (42.0-52.0) % MCV 97.0 H (80-90) FL MCH 32.9 H (27-31) PG MCHC 33.9 (33-37) g/dL RDW Std Deviation 43.7 (39-50) fL RDW Coeff of Durga 13.2 (11.5-14.5) % Plt Count 331 (140-350) 10*3/uL MPV 7.5 (7.4-12.2) FL Immature Gran % (Auto) 0.2 (0-5) % Neut % (Auto) 57.4 (50-80) % Lymph % (Auto) 30.5 (10-50) % Edgar % (Auto) 8.8 (5-15) % Eos % (Auto) 2.6 (0-8) % Baso % (Auto) 0.5 (0-1) % Immature Gran # (Auto) 0.01 10*3/UL Neut # (Auto) 3.61 10*3/UL Lymph # (Auto) 1.91 10*3/uL Edgar # (Auto) 0.55 (0.3-0.8) 10*3/UL Eos # (Auto) 0.16 10*3/UL Baso # (Auto) 0.03 10*3/UL WBC Morphology Comment Normal morphology (NORM) Plt Morphology Comment Normal morphology (NORM) RBC Morph Comment Normal morphology (NORM) Sodium 140 135 (135-145) meq/L Potassium 3.4 L 3.3 L (3.8-5.2) meq/L Chloride 103 103 (98-112) meq/L Carbon Dioxide 24 24 (23-33) meq/L Anion Gap 13 8 (5-20) BUN 6 L 4 L (7-22) mg/dL Creatinine 0.5 L 0.5 L (0.70-1.50) mg/dL Estimated GFR > 60 > 60 (>60 ml/min/1.73m(2)) BUN/Creatinine Ratio 12.00 8.00 (6-20) Glucose 92 90 (78-110) mg/dL Calculated Osmolality 287.0 276.0 (267-292) mOsm/kg Lactic Acid 1.8 (0.70-2.10) MMOL/L Calcium 7.5 L 7.8 L (8.7-10.7) mg/dL Total Bilirubin 0.8 1.0 (0.3-1.2) mg/dL AST 60 H 47 (21-57) IU/L ALT 34 30 (21-72) IU/L Alkaline Phosphatase 90 78 (38-126) IU/L Total Protein 6.7 6.0 L (6.1-8.0) g/dL Albumin 3.3 L 2.8 L (3.5-4.8) g/dL Globulin 3.4 3.2 (2.50-4.10) g/dL Albumin/Globulin Ratio 0.90 L 0.80 L (1.3-2.0) mg/g Serum Alcohol 88 H (0-10) mg/dL Objective : Exam - General General Appearance: No Acute Distress, Cooperative - Head Head Exam: Normal Inspection - Eye Eye Exam: Normal Appearance - Neck Neck Exam: Normal Inspection - Respiratory Respiratory Exam: Clear to Auscultation - Bilaterally - Cardiovascular Cardiovascular Exam: RRR - GI/Abdominal GI/Abdominal Exam: Normal Bowel Sounds, Non Tender, Non Distended, Soft - Rectal Rectal Exam: Deferred - External Exam: Deferred - Extremities Additional Extremities Exam Details: An ulcer with drainage noted on the right plantar aspect of the foot status post right metatarsal amputation. He had a dry small ulcer on the left big toe on the plantar aspect of it. - Back Back Exam: Normal Inspection - Neurological Neurological Exam: Alert, Oriented x 3, CN II-XII Intact - Psychiatric Psychiatric Exam: Normal Affect - Integumentary Integumentary Exam: Normal Color Assessment and Plan - Patient Problems (1) Acute alcohol intoxication Current Visit: Yes Status: Acute Comment: This is resolving. He is on CIWA protocol continue he is on multivitamins continue. I think we can stop the fluid. (2) Chronic osteomyelitis of foot Current Visit: Yes Status: Acute Comment: He is on Invanz continue. He was seen by the orthopedic physician yesterday the plan is for him to have a below-knee amputation probably midweek. (3) Right shoulder pain Current Visit: Yes Status: Acute Comment: There is a fracture of the right clavicle. He is in a sling.
--- NOTE | 2016-10-04 08:31 | EKG ---
[address] [address] Measurements Intervals [place] Rate: 73 P: 59 TX: 146 QRS: 39 QRSD: 86 T: 48 QT: 409 QTc: 435 Interpretive Statements SINUS RHYTHM Compared to ECG 09/18/2016 17:59:35 Sinus tachycardia no longer present Electronically Signed On 10-04-16 11:38:15 MDT by Den Lewis [id number]
[2016-10-04] MEDS: POTASSIUM CHLORIDE 20 MEQ TAB PO SCH ×2 (09:31→20:50)
[2016-10-04] MEDS: DOCUSATE 100 MG CAPSULE PO SCH ×2 (09:31→20:50)
[2016-10-04] MEDS: ChlordiazePOXIDE Cap 25 MG CAPSULE PO SCH ×3 (09:31→20:50)
[2016-10-04] MEDS: MAGNESIUM OXIDE 400 MG TABLET PO SCH ×2 (09:31→20:53)
[2016-10-04] MEDS: Calcium/Vit D 600mg/400u Tab 1 TAB TABLET PO SCH ×2 (09:31→20:50)
[2016-10-04] MEDS: FOLIC ACID 1 MG TABLET PO SCH (09:31)
[2016-10-04] MEDS: Thiamine Tab 100 MG TAB PO SCH (09:31)
[2016-10-05] MEDS: Ertapenem Inj 1 GM in Sodium Chloride 0.9% 100 ML IV SCH (00:47)
[2016-10-05] MEDS: oxyCODONE IR Tab 5 MG TAB PO PRN ×5 (00:59→21:48)
[2016-10-05 05:31] LABS: CALCIUM 8.1 mg/dL (8.7-10.7); EST GLOMERULAR FILTRATION > 60 (>60 ml/min/1.73m(2)); MAGNESIUM 1.8 mg/dL (1.6-2.4); SERUM ALBUMIN 2.9 g/dL (3.5-4.8)
[2016-10-05 05:33] LABS: BLOOD UREA NITROGEN 2 mg/dL (7-22)
[2016-10-05] MEDS: PANTOPRAZOLE 40 MG TABLET PO SCH (07:20)
--- NOTE | 2016-10-05 09:19 | PDOC(PROG) ---
Date and Time of Service: 10/05/2016 9:16 AM Interval History: Subjective Some minimal pain in the right shoulder and sometimes in the right foot when he puts weight on it. No other symptoms. Objective : Data - Labs CBC and BMP: 10/03/16 08:55 10/05/16 04:49 Labs - Last 24 Hours: Laboratory Results 10/05/16 Range/Units 04:49 Sodium 136 (135-145) meq/L Potassium 3.6 L (3.8-5.2) meq/L Chloride 104 (98-112) meq/L Carbon Dioxide 24 (23-33) meq/L Anion Gap 8 (5-20) BUN 2 L (7-22) mg/dL Creatinine 0.5 L (0.70-1.50) mg/dL Estimated GFR > 60 (>60 ml/min/1.73m(2)) BUN/Creatinine Ratio 4.00 L (6-20) Glucose 105 (78-110) mg/dL Calculated Osmolality 277.0 (267-292) mOsm/kg Calcium 8.1 L (8.7-10.7) mg/dL Magnesium 1.8 (1.6-2.4) mg/dL Total Bilirubin 0.7 (0.3-1.2) mg/dL AST 39 (21-57) IU/L ALT 31 (21-72) IU/L Alkaline Phosphatase 83 (38-126) IU/L Total Protein 6.3 (6.1-8.0) g/dL Albumin 2.9 L (3.5-4.8) g/dL Globulin 3.4 (2.50-4.10) g/dL Albumin/Globulin Ratio 0.80 L (1.3-2.0) mg/g Objective : Exam - General General Appearance: No Acute Distress, Cooperative - Head Head Exam: Normal Inspection, Atraumatic - Eye Eye Exam: Normal Appearance - ENT ENT Exam: Normal Exam - Neck Neck Exam: Normal Inspection - Respiratory Respiratory Exam: Clear to Auscultation - Bilaterally - Cardiovascular Cardiovascular Exam: RRR - GI/Abdominal GI/Abdominal Exam: Normal Bowel Sounds, Non Tender, Non Distended, Soft - Rectal Rectal Exam: Deferred - External Exam: Deferred - Extremities Additional Extremities Exam Details: No tremor noted. Ulcer right foot unchanged. - Back Back Exam: Normal Inspection - Neurological Neurological Exam: Alert, Oriented x 3, CN II-XII Intact, Moves All Extremities Equally - Psychiatric Psychiatric Exam: Normal Affect Assessment and Plan - Patient Problems (1) Acute alcohol intoxication Current Visit: Yes Status: Acute Comment: This is resolved. He is on Librium and he is on CIWA protocol and the last time he needed Ativan was on Wednesday. I think he can proceed with surgery on Wednesday or . (2) Chronic osteomyelitis of foot Current Visit: Yes Status: Acute Comment: Continue antibiotics. He can proceed with surgery on Wednesday or I did speak with Dr. Browne last night and he said he'll speak with Dr. Rutledge and then decide about the timing of surgery. We did MRI of the left foot today (3) Fracture of right clavicle Current Visit: Yes Status: Acute Comment: Same pain medication, he is in a sling
[2016-10-05] MEDS: Thiamine Tab 100 MG TAB PO SCH (09:21)
[2016-10-05] MEDS: Calcium/Vit D 600mg/400u Tab 1 TAB TABLET PO SCH ×2 (09:21→20:12)
[2016-10-05] MEDS: FOLIC ACID 1 MG TABLET PO SCH (09:22)
[2016-10-05] MEDS: DOCUSATE 100 MG CAPSULE PO SCH ×3 (09:22→20:13)
[2016-10-05] MEDS: ChlordiazePOXIDE Cap 25 MG CAPSULE PO SCH ×3 (09:23→20:12)
[2016-10-05] MEDS: POTASSIUM CHLORIDE 20 MEQ TAB PO SCH ×2 (09:23→20:12)
[2016-10-05] MEDS: MAGNESIUM OXIDE 400 MG TABLET PO SCH ×2 (09:23→20:12)
--- NOTE | 2016-10-05 10:20 | DI ---
MRI LEFT FOOT SCAN, 10/05/2016 8:00 AM: Clinical History: Ulcer of the right great toe on the plantar surface. Previous Exam: None at this facility. Technique: Axial, coronal, and sagittal PDW and fat saturated PD. Unfortunately, the patient was mov ing on multiple sequences, degrading the images and making assessment of fine detail structures diffi cult. On the fluid sensitive sequences, increased signal intensity is present in the soft tissues on the pl mattie aspect of the distal phalanx of the great toe. This corresponds to the location of the skin def ect that represents the ulceration. There is abnormally increased signal intensity in the cortical po rtions of the distal phalanx of the great toe. A definite defect in the cortex is not identified but the findings are consistent with osteomyelitis of the distal phalanx of the great toe. The increased signal intensity of the soft tissues distal to the ulcer measures about 3 x 5 x 7 mm. This increased signal intensity either represents a very small abscess or it represents cellulitis. The remaining to es in the visualized portions of the metatarsal bones show no abnormal marrow signal pattern or evide nce of soft tissue hyperintensity. Fluid is present in all of the metatarsophalangeal joints. Readin. There is a focus of hyperintensity measuring 3 x 5 x 7 mm just distal to the ulcer on the plantar surface of the distal phalanx of the great toe. This either represents a very small abscess or cellu litis. Hyperintensity is present in the marrow of the distal phalanx of the great toe without evidenc e of a definite cortical defect. This is consistent with osteomyelitis. 2. No other focus of osteomyelitis is noted. Fluid is present in all of the metatarsophalangeal join ts.
[2016-10-06] MEDS: Ertapenem Inj 1 GM in Sodium Chloride 0.9% 100 ML IV SCH (01:03)
[2016-10-06] MEDS: oxyCODONE IR Tab 5 MG TAB PO PRN ×2 (01:26→07:38)
[2016-10-06] MEDS: PANTOPRAZOLE 40 MG TABLET PO SCH (07:38)
[2016-10-06] MEDS: DOCUSATE 100 MG CAPSULE PO SCH ×2 (08:30→20:25)
[2016-10-06] MEDS: POTASSIUM CHLORIDE 20 MEQ TAB PO SCH ×2 (08:30→20:25)
[2016-10-06] MEDS: Calcium/Vit D 600mg/400u Tab 1 TAB TABLET PO SCH ×2 (08:30→20:25)
[2016-10-06] MEDS: Multivitamin Tab 1 TAB PO SCH (08:31)
[2016-10-06] MEDS: Thiamine Tab 100 MG TAB PO SCH (08:31)
[2016-10-06] MEDS: MAGNESIUM OXIDE 400 MG TABLET PO SCH ×2 (08:31→20:25)
[2016-10-06] MEDS: ChlordiazePOXIDE Cap 25 MG CAPSULE PO SCH ×3 (08:31→20:25)
[2016-10-06] MEDS: FOLIC ACID 1 MG TABLET PO SCH (08:31)
--- NOTE | 2016-10-06 08:41 | PDOC(PROG) ---
Date and Time of Service: 10/06/2016 8:15 AM Interval History: Subjective Patient is denying new symptoms, pain in the shoulder seems to be controlled with current pain medications. Objective : Data - Labs CBC and BMP: 10/03/16 08:55 10/05/16 04:49 Objective : Exam - General General Appearance: No Acute Distress, Cooperative - Head Head Exam: Normal Inspection - ENT ENT Exam: Normal Exam - Neck Neck Exam: Normal Inspection - Respiratory Respiratory Exam: Clear to Auscultation - Bilaterally - Cardiovascular Cardiovascular Exam: RRR - GI/Abdominal GI/Abdominal Exam: Normal Bowel Sounds, Non Tender, Non Distended, Soft - Rectal Rectal Exam: Deferred - External Exam: Deferred - Extremities Additional Extremities Exam Details: Ulcer in right foot unchanged. Small ulcer in the left foot is unchanged - Neurological Neurological Exam: Alert, Oriented x 3, CN II-XII Intact, Speech Intact / Clear - Psychiatric Psychiatric Exam: Normal Affect Assessment and Plan - Patient Problems (1) Acute alcohol intoxication Current Visit: Yes Status: Acute Comment: This is resolved (2) Chronic osteomyelitis of foot Current Visit: Yes Status: Acute Comment: Continue current antibiotics, I spoke with Dr. Browne last night and he said he'll speak with Dr. Rutledge and then they will decide when to do it. I did let the patient know. (3) Fracture of right clavicle Current Visit: Yes Status: Acute Comment: Same pain meds
[2016-10-06] MEDS: HYDROcodone-APAP 7.5 MG-325 MG TABLET PO PRN ×2 (14:22→20:30)
--- NOTE | 2016-10-06 16:03 | PTI REPORT ---
Thank you for the referral of Benjamin Browne. He was seen on 10/05/16 for an inpatient evaluation for a wound care consult. SUBJECTIVE: The patient is a 55-year-old male. Prior to speaking with the patient the therapist spoke with the nursing staff and they are under the understanding that the patient is undergoing surgery if he is in a stable condition tomorrow. They are unsure if it is for a right lower extremity amputation or if it for his left great toe removal. Upon speaking with the patient, the patient reports his right great toe was initially removed four years ago followed by two years ago the remaining toes on the right lower extremity. He states he has had the wound on the bottom of his remaining right foot for a long time but is unsure of when it started. He states he has been treating it at home. He is under the understanding that tomorrow he will undergo a left lower extremity great toe amputation followed by a right lower extremity amputation on . He states he realizes he has a wound under his great toe of his left lower extremity but is also unsure of when that started. PAST MEDICAL HISTORY: Past medical history can be found in the patient's medical record. OBJECTIVE FINDINGS: The patient denies any pain at the time but states he does have neuropathy. He states when he does have pain is when he hits his feet or trips over uneven surfaces. He presents with a chronic open wound with visible bone protruding on the plantar surface of the right lower extremity with 75% of the wound edges macerated with currently serosanguineous drainage. The patient reports that the dressing was changed a few hours prior to therapy. Per observation the wound measures 5 centimeters x 4.5 centimeters and at best can be measured at 1.5 centimeters deep. His wound on the plantar surface of his left great toe measures 1 centimeter x 0.8 centimeters with necrotic tissue in place leading to immeasurable depth. Upon palpation this wound presents with purulent drainage without any type of pain recreation. ASSESSMENT: Problem List: High risk of infection Chronic delayed wound healing Physical Therapy Goals: To be met by discharge from inpatient: Patient will promote clean wound healing. Patient will promote appropriate weight-bearing status following surgery. TREATMENT PLAN: Patient will be seen on a PRN basis per wound presentation depending on when and what type of surgery he does have and per orthopedic surgeon's orders. INITIAL TREATMENT: Today's treatment consisted of a wound care consult and re-dressing both wounds with a clean dressing only due to being scheduled for surgery tomorrow. All supplies were provided by the third floor. YOLI
--- NOTE | 2016-10-06 16:32 | PT AM DAY ---
Diagnosis : Wound Care AM - Physical Therapy S: The therapist spoke with nursing staff and they state that he is not having surgery today. They state he is possibly maybe having surgery tomorrow and . A lot of different circumstances will dictate whether or not surgery will be performed or not. O: The patient came down to therapy ambulating independently under supervision of a MINE CAPTAIN, requesting a single point cane; however, at this time the patient does not have an order for a cane. It was explained to the patient that during his last hospitalization he was issued a single point cane at that time. The patient reports he has since lost it. A: The therapist spoke with nursing and they stated they are applying clean bandages on a PRN basis until we will no further in regards to his surgery. P: Continue seeing patient BID during the week and one time per day over the weekend until discharge. YOLI
[2016-10-07] MEDS ORDERED: Zolpidem Tab 5 MG TAB PO ONE (00:22)
[2016-10-07] MEDS: HYDROcodone-APAP 7.5 MG-325 MG TABLET PO PRN ×2 (00:45→08:22)
[2016-10-07] MEDS: Ertapenem Inj 1 GM in Sodium Chloride 0.9% 100 ML IV SCH (00:46)
[2016-10-07 04:52] VITALS: TEMP 97.2
[2016-10-07 07:23] VITALS: RESP 20
[2016-10-07] MEDS: PANTOPRAZOLE 40 MG TABLET PO SCH (07:32)
[2016-10-07] MEDS: Thiamine Tab 100 MG TAB PO SCH (08:21)
[2016-10-07] MEDS: Calcium/Vit D 600mg/400u Tab 1 TAB TABLET PO SCH (08:21)
[2016-10-07] MEDS: POTASSIUM CHLORIDE 20 MEQ TAB PO SCH (08:21)
[2016-10-07] MEDS: FOLIC ACID 1 MG TABLET PO SCH (08:21)
[2016-10-07] MEDS: DOCUSATE 100 MG CAPSULE PO SCH (08:21)
[2016-10-07] MEDS: ChlordiazePOXIDE Cap 25 MG CAPSULE PO SCH (08:21)
[2016-10-07] MEDS: Multivitamin Tab 1 TAB PO SCH (08:22)
[2016-10-07 11:50] LABS: BASOPHILS # (AUTO) 0.02 10*3/UL; BASOPHILS % (AUTO) 0.2 % (0-1); EOSINOPHILS # (AUTO) 0.32 10*3/UL; HEMATOCRIT 39.8 % (42.0-52.0); HEMOGLOBIN 13.2 g/dL (14.0-18.0); LYMPHOCYTES # (AUTO) 2.09 10*3/uL; MEAN CORPUSCULAR HEMOGLOBIN 32.8 PG (27-31); MEAN CORPUSCULAR HGB CONC 33.2 g/dL (33-37); MEAN CORPUSCULAR VOLUME 98.8 FL (80-90); MEAN PLATELET VOLUME 8.1 FL (7.4-12.2); MONOCYTES # (AUTO) 0.94 10*3/UL (0.3-0.8); MONOCYTES % (AUTO) 8.8 % (5-15); NEUTROPHILS # (AUTO) 7.32 10*3/UL; NEUTROPHILS % (AUTO) 68.2 % (50-80); RED BLOOD COUNT 4.03 10^6/uL (4.70-6.10)
[2016-10-07 12:01] LABS: PLATELET MORPHOLOGY COMMENT NORMAL MORPHOLOGY (NORM); RBC MORPHOLOGY COMMENT NORMAL MORPHOLOGY (NORM); WBC MORPHOLOGY COMMENT NORMAL MORPHOLOGY (NORM)
[2016-10-07 12:05] LABS: BLOOD UREA NITROGEN 8 mg/dL (7-22); BUN/CREATININE RATIO 13.33 (6-20); CALCIUM 8.8 mg/dL (8.7-10.7); EST GLOMERULAR FILTRATION > 60 (>60 ml/min/1.73m(2)); MAGNESIUM 1.8 mg/dL (1.6-2.4); SERUM ALBUMIN 3.7 g/dL (3.5-4.8)
--- NOTE | 2016-10-07 12:29 | DCSUMMARY ---
Hospitalization Summary Hospital Course: Final Discharge Diagnosis: Current Visit Problems Problem Status Priority Diagnosed Code Acute alcohol intoxication Acute F10.129 Chronic osteomyelitis of foot Acute M86.679 Fracture of right clavicle Acute S42.001A Right shoulder pain Acute M25.511 Diagnostic Data, Laboratory Data, and Procedures of Signifigance: Laboratory Results 10/02/16 10/03/16 10/03/16 Range/Units 22:20 00:28 08:55 WBC 8.10 6.27 (4.8-10.8) 10^3/uL RBC 3.98 L 3.71 L (4.70-6.10) 10^6/uL Hgb 12.9 L 12.2 L (14.0-18.0) g/dL Hct 38.2 L 36.0 L (42.0-52.0) % MCV 96.0 H 97.0 H (80-90) FL MCH 32.4 H 32.9 H (27-31) PG MCHC 33.8 33.9 (33-37) g/dL RDW Std Deviation 44.1 43.7 (39-50) fL RDW Coeff of Durga 13.2 13.2 (11.5-14.5) % Plt Count 386 H 331 (140-350) 10*3/uL MPV 7.8 7.5 (7.4-12.2) FL Immature Gran % (Auto) 0.1 0.2 (0-5) % Neut % (Auto) 69.0 57.4 (50-80) % Lymph % (Auto) 20.6 30.5 (10-50) % Clare % (Auto) 9.0 8.8 (5-15) % Eos % (Auto) 0.7 2.6 (0-8) % Baso % (Auto) 0.6 0.5 (0-1) % Immature Gran # (Auto) 0.01 0.01 10*3/UL Neut # (Auto) 5.58 3.61 10*3/UL Lymph # (Auto) 1.67 1.91 10*3/uL Clare # (Auto) 0.73 0.55 (0.3-0.8) 10*3/UL Eos # (Auto) 0.06 0.16 10*3/UL Baso # (Auto) 0.05 0.03 10*3/UL WBC Morphology Comment Normal morphology Normal morphology (NORM) Plt Morphology Comment Normal morphology Normal morphology (NORM) RBC Morph Comment Normal morphology Normal morphology (NORM) Sodium 146 H 140 (135-145) meq/L Potassium 4.1 3.4 L (3.8-5.2) meq/L Chloride 106 103 (98-112) meq/L Carbon Dioxide 24 24 (23-33) meq/L Anion Gap 16 13 (5-20) BUN 8 6 L (7-22) mg/dL Creatinine 0.6 L 0.5 L (0.70-1.50) mg/dL Estimated GFR > 60 > 60 (>60 ml/min/1.73m(2)) BUN/Creatinine Ratio 13.33 12.00 (6-20) Glucose 97 92 (78-110) mg/dL Calculated Osmolality 299.0 H 287.0 (267-292) mOsm/kg Lactic Acid 3.7 H 1.8 (0.70-2.10) MMOL/L Calcium 8.0 L 7.5 L (8.7-10.7) mg/dL Magnesium 2.1 (1.6-2.4) mg/dL Total Bilirubin 0.9 0.8 (0.3-1.2) mg/dL AST 87 H 60 H (21-57) IU/L ALT 31 34 (21-72) IU/L Alkaline Phosphatase 103 90 (38-126) IU/L C-Reactive Protein 3.1 H (0.0-0.9) mg/dL Total Protein 7.4 6.7 (6.1-8.0) g/dL Albumin 3.7 3.3 L (3.5-4.8) g/dL Globulin 3.6 3.4 (2.50-4.10) g/dL Albumin/Globulin Ratio 1.00 L 0.90 L (1.3-2.0) mg/g TSH 0.966 (0.2700-4.2000) uIU/mL Ur Collection Type Voided specimen U Specif Grav (Refrac) 1.021 Urine Opiates Screen Negative (NEG) Ur Buprenorphine Negative (NEG) Ur Oxycodone Screen Negative (NEG) Urine Methadone Screen Negative (NEG) Ur Propoxyphene Screen Negative (NEG) Barbiturate Screen Negative (NEG) U Tricyclic Antidepress Negative (NEG) Phencyclidine Screen Negative (NEG) Amphetamines Screen Negative (NEG) U Methamphetamines Scrn Negative (NEG) Benzodiazepines Screen Positive H (NEG) Cocaine Screen Negative (NEG) U Marijuana (THC) Screen Negative (NEG) Serum Alcohol 290 H 88 H (0-10) mg/dL 10/04/16 10/05/16 10/07/16 Range/Units 05:22 04:49 11:42 WBC 10.72 (4.8-10.8) 10^3/uL RBC 4.03 L (4.70-6.10) 10^6/uL Hgb 13.2 L (14.0-18.0) g/dL Hct 39.8 L (42.0-52.0) % MCV 98.8 H (80-90) FL MCH 32.8 H (27-31) PG MCHC 33.2 (33-37) g/dL RDW Std Deviation 47.3 (39-50) fL RDW Coeff of Durga 13.7 (11.5-14.5) % Plt Count 295 (140-350) 10*3/uL MPV 8.1 (7.4-12.2) FL Immature Gran % (Auto) 0.3 (0-5) % Neut % (Auto) 68.2 (50-80) % Lymph % (Auto) 19.5 (10-50) % Clare % (Auto) 8.8 (5-15) % Eos % (Auto) 3.0 (0-8) % Baso % (Auto) 0.2 (0-1) % Immature Gran # (Auto) 0.03 10*3/UL Neut # (Auto) 7.32 10*3/UL Lymph # (Auto) 2.09 10*3/uL Clare # (Auto) 0.94 H (0.3-0.8) 10*3/UL Eos # (Auto) 0.32 10*3/UL Baso # (Auto) 0.02 10*3/UL WBC Morphology Comment Normal morphology (NORM) Plt Morphology Comment Normal morphology (NORM) RBC Morph Comment Normal morphology (NORM) Sodium 135 136 137 (135-145) meq/L Potassium 3.3 L 3.6 L 4.5 (3.8-5.2) meq/L Chloride 103 104 102 (98-112) meq/L Carbon Dioxide 24 24 22 L (23-33) meq/L Anion Gap 8 8 13 (5-20) BUN 4 L 2 L 8 (7-22) mg/dL Creatinine 0.5 L 0.5 L 0.6 L (0.70-1.50) mg/dL Estimated GFR > 60 > 60 > 60 (>60 ml/min/1.73m(2)) BUN/Creatinine Ratio 8.00 4.00 L 13.33 (6-20) Glucose 90 105 86 (78-110) mg/dL Calculated Osmolality 276.0 277.0 280.0 (267-292) mOsm/kg Lactic Acid (0.70-2.10) MMOL/L Calcium 7.8 L 8.1 L 8.8 (8.7-10.7) mg/dL Magnesium 1.8 1.8 (1.6-2.4) mg/dL Total Bilirubin 1.0 0.7 0.8 (0.3-1.2) mg/dL AST 47 39 59 H (21-57) IU/L ALT 30 31 41 (21-72) IU/L Alkaline Phosphatase 78 83 94 (38-126) IU/L C-Reactive Protein (0.0-0.9) mg/dL Total Protein 6.0 L 6.3 7.5 (6.1-8.0) g/dL Albumin 2.8 L 2.9 L 3.7 (3.5-4.8) g/dL Globulin 3.2 3.4 3.7 (2.50-4.10) g/dL Albumin/Globulin Ratio 0.80 L 0.80 L 1.00 L (1.3-2.0) mg/g TSH (0.2700-4.2000) uIU/mL Ur Collection Type U Specif Grav (Refrac) Urine Opiates Screen (NEG) Ur Buprenorphine (NEG) Ur Oxycodone Screen (NEG) Urine Methadone Screen (NEG) Ur Propoxyphene Screen (NEG) Barbiturate Screen (NEG) U Tricyclic Antidepress (NEG) Phencyclidine Screen (NEG) Amphetamines Screen (NEG) U Methamphetamines Scrn (NEG) Benzodiazepines Screen (NEG) Cocaine Screen (NEG) U Marijuana (THC) Screen (NEG) Serum Alcohol (0-10) mg/dL History and Physical pertinent to Admission: Past Medical History Medical History: 1. Chronic alcoholism. 2. Peripheral neuropathy, probably related to alcohol. 3. Tobacco abuse. 4. Chronic ulcers in feet with chronic osteomyelitis proven by MRI scan. 5. Recent the left rib fractures after a fall Surgical History: 1. Appendectomy. 2. Transmetatarsal amputation Pertinent Family History: Significant for heart disease and diabetes in his father. He states his mother is fairly healthy at 82 years Tobacco Use: Current Every Day Smoker Substance Use Type: None, Other (please comment) Alcohol Use: Heavy Course of Hospitalization: This very nice 55-year-old gentleman with the past medical history significant for alcohol abuse, history of chronic osteomyelitis of the metatarsal of his right foot he was recently discharged on September 23 admitted for acute alcohol intoxication and withdrawal in regards to his ulcers because they consult to Dr. Rutledge at that time and he had recommended to refer her to another orthopedic for second opinion for possible amputation he also has seen infectious disease date did have a PICC line inserted in him but he removed it on his own and at that point they decided to treat him orally. Since she's been discharge is been drinking a fifth of bourbon daily and his last drink was 6 PM the day before was readmitted for acute alcohol intoxication is a cold level was 290 is doing well now no acute distress he does have an appointment with Dr. Browne next Wednesday, October 14 at 8:15 AM to discuss possibly amputation of his right leg after he sees the patient in the clinic here and Alex. I did call Dr. Rutledge today for this patient he confirms that he needs to see Dr. Browne which was at that point decide what the next best step is for this patient. She will be discharged he will continue taking his Levaquin and Flagyl his labs are within normal limits there is no white count his potassium is been replaced as well. Patient is right ear to be discharged home he said he will not drink I did offer him help to go see [facility] he said he will take care of these appointments on his own and he feels that he can handle this does not need any help from me. Patient was discuss with the clinical social work aide the patient and his nurse he agrees with the above plan I also made him a follow-up appointment with a primary care physician which she does not have on October 14 at 10:30 AM On the date of discharge, the patient was examined: Gen.: No acute distress, alert, nontoxic Heart: Regular rate and rhythm, no murmurs, clicks, gallops, or rubs Lungs: Clear to auscultation bilaterally, breathing is nonlabored Abdomen/GI: Normal tones on auscultation, soft, nontender, nondistended Musculoskeletal/extremities: No clubbing, cyanosis, or edema Vitals reviewed and are listed below Vital Signs (24 hrs) Temp Pulse Pulse Pulse Resp BP BP 10/07/16 12:19 97.2 F 83 20 117/76 10/07/16 07:22 97.2 F 103 H 20 111/69 10/07/16 07:00 94 10/07/16 05:30 10/07/16 04:51 97.2 F 79 16 10/07/16 00:47 97.4 F 88 16 10/07/16 00:00 98.3 F 91 20 122/72 10/06/16 21:00 98.3 F 91 20 10/06/16 19:00 79 10/06/16 16:07 97.8 F 92 18 BP BP Pulse Ox 10/07/16 12:19 96 10/07/16 07:22 92 10/07/16 07:00 10/07/16 05:30 94 10/07/16 04:51 113/74 94 10/07/16 00:47 146/77 94 10/07/16 00:00 10/06/16 21:00 122/72 96 10/06/16 19:00 10/06/16 16:07 123/77 94 Assessment and Plan: 1. As per discharge assessments above 2. Disposition: Home 3. Condition on discharge, stable and improved. 4. Diet: regular diet 5. Activities: resume normal activities 6. Follow-Up: With Dr. Browne October 14 at 8:[address] Harris October 14 at 10:30 AM 2. 7. Medications at the Time of Discharge: Home Medications Medication Instructions Recorded Confirmed Type Celecoxib [Celebrex] 200 mg PO BID #20 capsule 09/18/16 10/02/16 Rx Chlordiazepoxide HCl [Librium] 25 mg PO BID #20 capsule 09/18/16 10/02/16 Rx Cyclobenzaprine HCl [Flexeril] 10 mg PO TID PRN #20 tab 09/18/16 10/02/16 Rx Folic Acid 1 mg PO DAILY #20 tab 09/18/16 10/02/16 Rx Multivitamin Tab [Thera Tab] 1 tab PO DAILY #14 tab 09/18/16 10/02/16 Rx Pantoprazole Sodium [Protonix] 40 mg PO AC BK #30 tab 09/18/16 10/02/16 Rx Calcium Carbonate/Vitamin D3 1 each PO BID #60 tablet 09/23/16 10/02/16 Rx [Calcium 500 With Vit D Tab] HYDROcodone/APAP 7.5/325 Tab 1 - 2 tab PO Q4H PRN #14 tab 09/23/16 10/02/16 Rx [[place] 7.5/325 Tab] Levofloxacin [Levaquin] 500 mg PO 1900 #30 tab 09/23/16 10/02/16 Rx metroNIDAZOLE Tab [Flagyl Tab] 500 mg PO TID #90 tab 09/23/16 10/02/16 Rx 8. Time, care, counseling and coordination of care for this discharge is greater than 30 minutes. Exam - Vitals Vital Signs: Vital Signs Temperature 97.2 F Temperature Source Temporal Artery Scan Pulse Rate [Apical] 94 Pulse Rate [Pulse Oximeter] 83 Pulse Rate 91 Respiratory Rate 20 Blood Pressure [Left Calf] 123/77 Blood Pressure [Left Arm] 117/76 Blood Pressure [Right Calf] 167/87 Blood Pressure [Right Arm] 113/74 Blood Pressure 122/72 Pulse Ox 96 Oxygen Flow Rate 1 Oxygen Delivery Method Room Air Height 6 ft Weight 81.647 kg
== END 2016-10-07 12:43 | disposition home or self-care (01) | DRG 897 ==
LOC: ER 21:37 → MED/SURG 10-03 01:01
PROVIDERS: ADMIT Internal Medicine; ATTEND Internal Medicine
DX: F10.129 Alcohol abuse with intoxication, unspecified (principal); M86.671 Other chronic osteomyelitis, right ankle and foot; S42.001A Fracture of unspecified part of right clavicle, initial encounter for closed fracture
CPT/HCPCS: 36415; 73030; 73701; 73718; 80053; 80305; 80320; 82948; 83605; 83735; 84443; 85025; 86140; 87040; 87493; 87641; 93005; 93010; 94761; 96361; 96365; 96375; 97161; 99285; J1335; J1885; J2060; J2405; J3411; J3475; J7030; J7050

== ENCOUNTER 2016-10-08 19:49 | Inpatient (IN) | payer SELFPAY ==
--- NOTE | 2016-10-08 20:38 | PDOC ---
Lower Extremity Problem HPI - General Chief Complaint: Lower Extremity Problem/Injury Stated Complaint: FOOT ULCER Date Seen by Provider: 10/08/16 Time Seen by Provider: 20:33 Source: POSITIVE: Patient Exam Limitations: POSITIVE: No limitations Nurse's Notes Reviewed & Considered: Yes - History of Present Illness Initial Comments: This is a 55-year-old male who presents to the emergency department with history of increasing pain in his right foot and left great toe for the last day or 2 the pain is more prominent in the right foot and it radiates up the medial ankle. He has not noticed any noticeable swelling there is some slight slight increase in redness he's had some chills or documented fevers. He does state he has a history of osteomyelitis in this foot several years ago and having multiple surgeries including amputation of all of his toes on the right foot. He also states that he had a recent consultation with Dr. Browne and they are considering amputating his left great toe. - Patient Home Medications Home Medications: Home Medications Levofloxacin [Levaquin] 500 mg PO 1900 #30 tab 09/23/16 metroNIDAZOLE Tab [Flagyl Tab] 500 mg PO TID #90 tab 09/23/16 - Patient Allergies Allergies/Adverse Reactions: Allergies Allergy/AdvReac Type Severity Reaction Status Date / Time Sulfa (Sulfonamide AdvReac DIFFICULTY Verified 10/08/16 20:30 Antibiotics) SWALLOWING Past Medical History - heen HEENT History: Denies History Cardiovascular History: Hypertension Respiratory History: Other (please comment) Additional Respiratory History: Heavy smoker Gastrointestinal History: Colitis, Other (please comment) Additional Gastrointestinal History: Hx of GI bleeds with heavy times of drinking. Genitourinary History: Denies History Endocrine History: Denies History Musculoskeletal History: Other (please comment) Prosthesis or Implant: No Additional Musculoskeletal History: Hx of right partial foot amputation from osteomyolitis. Neurological History: Other (please comment) Additional Neurological History: Hx of seizures with detox. Blood Disorders: Denies History Psychiatric History: Depression, Anxiety Disorders History of Sexually Transmitted Diseases: No Cancer History: Skin History of MDRO: Yes History of Other Communicable Diseases: No Tobacco Use: Heavy Tobacco Smoker Alcohol Use: Heavy Substance Use Type: None Previous Surgical History: Yes Significant Family History: No pertinent family hx Past Medical History Reviewed: Reviewed - Changes Made ROS - Limitations ROS Limitations: Intoxication Constitution: REPORTS: Chills. DENIES: Fever Cardiovascular: DENIES: Chest Pain Respiratory: REPORTS: Cough Non Productive. DENIES: Shortness Of Breath Neurological: REPORTS: Other (Peripheral neuropathy). DENIES: Headache, Dizziness Gastrointestinal: DENIES: Abdominal Pain, Nausea, Vomitting Musculoskeletal: REPORTS: Muscle Aches Genitourinary: REPORTS: Denies Symptoms ENT: DENIES: Congestion, Nasal Drainage Skin: REPORTS: Skin Lesions (Ulcers on his right foot and left large toe) Lower Ext Problem Exam - General Appearance General Appearance: POSITIVE: Alert, Cooperative, Moderate Distress - Extremities Lower Extremity: POSITIVE: Foot (Right forefoot amputation with approximately a 2 cm ulcer along the first metatarsal. 2-3 mm ulcer right large toe tip), Tenderness (Right medial foot and ankle) Vascular: POSITIVE: No Vascular Compromise, Full Pulses, Equal Pulses - Neuro / Psych Neuro/Psych: POSITIVE: Mood Appropriate, Affect Appropriate - Skin Skin: POSITIVE: Warm, Dry, Erythema, Other (Ulcers on both the right first metatarsal and left large toe) - HEENT HEENT: POSITIVE: PERRL. NEGATIVE: Scleral Icterus - Respiratory / CVS Respiratory / CVS: POSITIVE: No Respiratory Distress, Breath Sounds Normal, Regular Rate/Rhythm, Heart Sounds Normal. NEGATIVE: Wheezes, Rales, Rhonchi Peripheral Pulses: Dorsalis-pedis (R): 2+, Dorsalis-pedis (L): 2+ - Abdomen Additional Details: Abdomen is soft, nontender, nondistended, no organomegaly. Images - Uploaded Photos Uploaded Photos: Lower Ext Problem Progress - Results Reviewed by me Xrays/CTs/US Reviewed by me: Yes Discussed with Radiologist: Yes Radiology Findings: Cellulitis of the right foot with no evidence of abscess. Lab Results Reviewed: Yes - Patient's Progress Pain Medication Addressed: POSITIVE: Yes Re-Examine Time: 01:00 (stable) Status: POSITIVE: Unchanged MDM / ED Course: Emergency room course: After initial evaluation, an IV was established, blood was drawn, and pain medication was given. Once the lab results returned, I elected to get a CT scan of his right foot due to his worsening symptoms. CT scan did show cellulitis no evidence of abscess. I discussed these findings with the patient I subsequently discussed these results with the hospitalist on- call, Dr. Recinos. Since the patient is getting worse clinically on the current antibiotic regimen of Levaquin and Flagyl, we'll elect to admit him again with a dose of vancomycin and further evaluation treatment. Patient Care Time - Estimated PCT Patient Care Time (In Minutes): 30 Discharge Clinical Impression: Cellulitis Discharge Disposition: Admit to Inpatient Condition: Stable Date Decision to Admit to Inpatient: 10/09/16 Time Decision to Admit to Inpatient: 01:00
[2016-10-08] MEDS ORDERED: NORMAL SALINE 10 ML SYRINGE FLUSH IVP PRN (20:42)
[2016-10-08] MEDS ORDERED: ONDANSETRON 4 MG/2 ML VIAL IVP ONE (20:43)
[2016-10-08] MEDS ORDERED: fentaNYL Inj 100 MCG/2 ML VIAL IVP ONE (20:43)
[2016-10-08 21:20] LABS: BASOPHILS # (AUTO) 0.03 10*3/UL; BASOPHILS % (AUTO) 0.3 % (0-1); EOSINOPHILS # (AUTO) 0.25 10*3/UL; EOSINOPHILS % (AUTO) 2.6 % (0-8); HEMATOCRIT 36.2 % (42.0-52.0); HEMOGLOBIN 12.2 g/dL (14.0-18.0); LYMPHOCYTES # (AUTO) 1.45 10*3/uL; MEAN CORPUSCULAR HEMOGLOBIN 32.8 PG (27-31); MEAN CORPUSCULAR HGB CONC 33.7 g/dL (33-37); MEAN CORPUSCULAR VOLUME 97.3 FL (80-90); MEAN PLATELET VOLUME 8.2 FL (7.4-12.2); MONOCYTES # (AUTO) 1.36 10*3/UL (0.3-0.8); NEUTROPHILS # (AUTO) 6.56 10*3/UL; NEUTROPHILS % (AUTO) 67.8 % (50-80); PLATELET MORPHOLOGY COMMENT NORMAL MORPHOLOGY (NORM); RBC MORPHOLOGY COMMENT NORMAL MORPHOLOGY (NORM); RED BLOOD COUNT 3.72 10^6/uL (4.70-6.10); WBC MORPHOLOGY COMMENT NORMAL MORPHOLOGY (NORM)
[2016-10-08 21:24] LABS: BLOOD UREA NITROGEN 8 mg/dL (7-22); BUN/CREATININE RATIO 13.33 (6-20); CALCIUM 8.7 mg/dL (8.7-10.7); EST GLOMERULAR FILTRATION > 60 (>60 ml/min/1.73m(2)); SERUM ALBUMIN 3.5 g/dL (3.5-4.8)
[2016-10-08 21:56] LABS: ERYTHROCYTE SEDIMENTATION RATE 37 MM/HR (0-15)
--- NOTE | 2016-10-08 23:39 | DI ---
HISTORY: Right foot pain and swelling with redness that goes up the leg so all anatomy is included. COMPARISON: . TECHNIQUE: Axial images of the lower extremities following administration of 95 CC ISOVUE 300 admini stered by IV. FINDINGS: OSSEOUS STRUCTURES: No acute fracture or dislocation. Mild degenerative changes of the knees are no nneka. The patient is status post amputation of the right toes from the distal shaft of the metatarsals. There is evidence of soft tissue edema and periosteal reaction of the first metatarsal shaft with dis jasmin cystic changes. SOFT TISSUES: Soft tissue planes appear preserved, without identified soft tissue mass or focal flui d collection detected. Fatty infiltration/atrophy of the right posterior leg musculature relative to the contralateral side. Right lower extremity subcutaneous edema. GREAT VESSELS: Atherosclerotic vascular disease. Popliteal, anterior/posterior tibial and peroneal vessels without focal high-grade stenosis. No evidence of vascular injury. IMPRESSION: 1. Status post amputation of the right phalanges with prominent periosteal reaction about the 1st met atarsal and distal cystic changes. Additional prominent soft tissue swelling/edema about the right l eg. Finding concerning for osteomyelitis with cellulitis or fasciitis (clinical diagnosis). No gas tracking about the facial planes at this time. MRI can further evaluate for osteomyelitis. 2. No occlusion of the arterial supply to either lower extremity.
[2016-10-09] MEDS ORDERED: LORazepam 2 MG/1 ML VIAL IVP PRN ×2 (01:24→01:25)
[2016-10-09] MEDS ORDERED: ONDANSETRON 4 MG/2 ML VIAL IVP PRN (01:25)
[2016-10-09] MEDS ORDERED: MORPHINE SULFATE 2 MG/1 ML IVP PRN (01:25)
[2016-10-09] MEDS ORDERED: LIDOCAINE W/ SODIUM BICARB 0.5 ML SYR SUBD PRN (01:25)
[2016-10-09] MEDS ORDERED: NORMAL SALINE 10 ML SYRINGE FLUSH IVP PRN (01:25)
[2016-10-09] MEDS ORDERED: Piperacillin/Tazobactam Inj 3.375 GM in Sodium Chloride 0.9% 100 ML IV SCH (01:30)
[2016-10-09 08:29] VITALS: RESP 18; TEMP 97.7
[2016-10-09] MEDS ORDERED: ENOXAPARIN SODIUM 40 MG/0.4 ML SYRINGE SUBCUT SCH (09:00)
--- NOTE | 2016-10-09 11:33 | PDOC ---
History and Physical - History of Present Illness History of Present Illness: This very nice 55-year-old gentleman with past medical history significant for severe peripheral neuropathy and alcohol use he has a history of chronic osteomyelitis on the right lower extremity right metatarsal MRI and CT scans were done last week for his admission here which revealed possible ostial Dr. Browne was scheduled to do a BKA last Wednesday this was canceled and he was to follow-up with Dr. Browne the this next week. Patient was also put on Levaquin and Flagyl by mouth by infectious disease because of noncompliance and he had his PICC line pulled. Before his admission here last week he also sustained a fall secondary to alcohol intoxication and broke his clavicle. The patient states that he was drinking because of his pain in the right lower foot. He was discharged home back on his oral Levaquin and Flagyl and was scheduled to see Dr. Browne next Wednesday but he comes back to the ER last evening with the increasing pain in the right foot and left great toe which is radiating up to his ankle and leg on the right side is also had increased swelling and redness and some chills CT scan of the of his right foot showed osteomyelitis but no gas tracking and cellulitis. The patient is very frustrated of him not being able to get the BKA he said he cannot tolerate this any longer and I said I will call [facility] to talk to the surgeons and the hospitalist to see if we can expedite him being seen by Ortho and possibly performing a BKA after he is evaluated and left toe surgery as well patient was agreeing with this plan and was very relieved. I did discuss the case with Dr. Mike Soares hospitalist he accepted the patient in transfer the patient is very happy about this and is very hopeful that have a final plan. He did receive the 1 dose of vancomycin in the ER and he is now on Zosyn IV. He does have history of alcohol abuse he did not go into DTs last admission but I would watch him very carefully from the standpoint. Like to thank [facility] the referral Center and help from Mike Soares M.D. Past Medical History Medical History: 1. Chronic alcoholism. 2. Peripheral neuropathy, probably related to alcohol. 3. Tobacco abuse. 4. Chronic ulcers in feet with chronic osteomyelitis proven by MRI scan. 5. Recent the left rib fractures after a fall Surgical History: 1. Appendectomy. 2. Transmetatarsal amputation Pertinent Family History: Significant for heart disease and diabetes in his father. He states his mother is fairly healthy at 82 years Tobacco Use: Heavy Tobacco Smoker Substance Use Type: None Medication / Allergies Home Medications: Home Medications Medication Instructions Recorded Confirmed Type Levofloxacin [Levaquin] 500 mg PO 1900 #30 tab 09/23/16 10/08/16 Rx metroNIDAZOLE Tab [Flagyl Tab] 500 mg PO TID #90 tab 09/23/16 10/08/16 Rx Allergies/Adverse Reactions: Allergies Allergy/AdvReac Type Severity Reaction Status Date / Time Sulfa (Sulfonamide AdvReac DIFFICULTY Verified 10/09/16 06:46 Antibiotics) SWALLOWING Review of Systems - Review of Systems All Systems: Reviewed & No Additional Complaints Except as Stated - Respiratory Respiratory: DENIES: Negative System Review, Cough, Sputum, Dyspnea At Rest, Dyspnea with Exertion, Pleuritic Pain, Hemoptysis, Wheezing, Other, See HPI - Cardiovascular Cardiovascular: DENIES: Negative System Review, Chest Pain, Edema, Syncope, Palpitations, Orthopnea, Paroxysmal Nocturnal Dyspnea, Other, See HPI - Gastrointestinal Gastrointestinal / Abdominal: DENIES: Negative System Review, Nausea, Vomiting, Diarrhea, Constipation, Abdominal Pain, Bloody Stool, Poor Appetite, Heartburn, Regurgitation, Bloating, Lactose Intolerance, Melena, Bright Red Blood Per Rectum, Other, See HPI - Musculoskeletal Musculoskeletal: REPORTS: Swelling, Joint Pain - Feet Exam - Vitals Vital Signs: Vital Signs Temperature 97.7 F Temperature Source Temporal Artery Scan Pulse Rate [Pulse Oximeter] 94 Respiratory Rate 18 Blood Pressure [Left Arm] 93/69 Pulse Ox 94 Oxygen Delivery Method Nasal Cannula Height 6 ft Weight 81.363 kg - General General Appearance: POSITIVE: No Acute Distress, Cooperative - Head Head Exam: POSITIVE: Normal Inspection, Normocephalic, Atraumatic - Eye Eye Exam: POSITIVE: PERRL, EOMI - Respiratory Respiratory Exam: POSITIVE: Clear to Auscultation - Bilaterally, Breathing Non Labored, Normal To Percussion - Cardiovascular Cardiovascular Exam: POSITIVE: RRR, No Murmur, No Clicks, No Gallops - GI/Abdominal GI/Abdominal Exam: POSITIVE: Non Tender, Non Distended - Extremities Additional Extremities Exam Details: Redness the right lower extremity mild swelling ulcerations of the metatarsal right side left toe ulceration as well Results - Labs CBC and BMP: 10/08/16 20:41 10/08/16 20:41 Assessment and Plan - Patient Problems (1) Cellulitis Current Visit: Yes Status: Acute (2) Chronic alcoholism Current Visit: No Status: Acute (3) Chronic osteomyelitis of foot Current Visit: No Status: Acute (4) Fracture of right clavicle Current Visit: No Status: Acute (5) Multiple falls Current Visit: No Status: Acute (6) Multiple rib fractures Current Visit: No Status: Acute Qualifiers: Encounter type: initial encounter Fracture type: closed Laterality : left Qualified Description: Closed fracture of multiple ribs of left side , initial encounter Qualifier Code(s): (S22.42XA) Multiple fractures of ribs, left side, initial encounter for closed fracture (7) Neuropathy Current Visit: No Status: Acute (8) Status post transmetatarsal amputation of right foot Current Visit: No Status: Acute Photo / Body Diagrams - Uploaded Photos Uploaded Photos:
--- NOTE | 2016-10-09 11:36 | DCSUMMARY ---
Hospitalization Summary Hospital Course: See H&P patient admitted in transfer within 24 hours for right lower extremity cellulitis and possible BKA of the right lower extremity and left toe Exam - Vitals Vital Signs: Vital Signs Temperature 97.7 F Temperature Source Temporal Artery Scan Pulse Rate [Pulse Oximeter] 94 Respiratory Rate 18 Blood Pressure [Left Arm] 93/69 Pulse Ox 94 Oxygen Delivery Method Nasal Cannula Height 6 ft Weight 81.363 kg Patient Problems - Patient Problem List (1) Cellulitis Current Visit: Yes Status: Acute (2) Chronic alcoholism Current Visit: No Status: Acute (3) Chronic osteomyelitis of foot Current Visit: No Status: Acute (4) Fracture of right clavicle Current Visit: No Status: Acute (5) Multiple falls Current Visit: No Status: Acute (6) Multiple rib fractures Current Visit: No Status: Acute Qualifiers: Encounter type: initial encounter Fracture type: closed Laterality : left Qualified Description: Closed fracture of multiple ribs of left side , initial encounter Qualifier Code(s): (S22.42XA) Multiple fractures of ribs, left side, initial encounter for closed fracture (7) Neuropathy Current Visit: No Status: Acute (8) Status post transmetatarsal amputation of right foot Current Visit: No Status: Acute
== END 2016-10-09 13:04 | disposition short-term general hospital (02) | DRG 999 ==
LOC: ER 19:49 → MED/SURG 10-09 01:16
PROVIDERS: ADMIT Internal Medicine; ATTEND Internal Medicine
DX: L97.519 Non-pressure chronic ulcer of other part of right foot with unspecified severity (principal); L03.115 Cellulitis of right lower limb; M86.671 Other chronic osteomyelitis, right ankle and foot; S22.42XA Multiple fractures of ribs, left side, initial encounter for closed fracture; F10.20 Alcohol dependence, uncomplicated; S42.001A Fracture of unspecified part of right clavicle, initial encounter for closed fracture; G62.9 Polyneuropathy, unspecified; Z89.431 Acquired absence of right foot
CPT/HCPCS: 36415; 73701; 80053; 80320; 85025; 85652; 87040; 94761; 99283; J1650; J2270; J2405; J2543; J3010; J3370; J7040; J7050